=== PATIENT | male | born 1975 | race Caucasian/White ===

== ENCOUNTER 2022-10-21 14:55 | Outpatient (AMB) | payer BC, SELFPAY ==
--- NOTE | 2022-10-21 15:05 | A.OFFPC_ITS ---
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 Had been using cochichine. Fluctuant mass L testicle PMHx: GERD, Gout. Hematuria SurgHx: R knee meniscal repair. Vasectomy with complication; pain & slow recovery FHx: Dad: Gout. Mom: HTN, DM2 SocHx: Smoke x6 years and quit > 10 years ago. Some chewing tobacco. EtOH drinks daily 1/2 pint or more. MJ: Indica tincture. PFSH Medical History (Updated 10/21/22 @ 16:11 by Cb Navarro) GERD (gastroesophageal reflux disease) Gout Kidney disease Shingles Surgical History (Updated 10/21/22 @ 15:54 by Cb Navarro) H/O arthroscopic knee surgery Family History (Updated 10/21/22 @ 15:20 by Belkys Little CMA) Father Gout Maternal Grandfather Alcohol abuse Brother Kidney disease Social History (Updated 10/21/22 @ 15:23 by Belkys Little CMA) Household Members: None Housing: House Alcohol intake: current Patient Tobacco Use Status: Former Tobacco user e-Cigarette/Vaping Use: Never Used Substance Use Type: Marijuana service: No Current occupational status: employed 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 1. Little interest or pleasure in doing things: not at all 2. Feeling down, depressed, or hopeless: not at all 3. Trouble falling or staying asleep, or sleeping too much: not at all 4. Feeling tired or having little energy: not at all 5. Poor appetite or overeating: not at all 6. Feeling bad about yourself - or that you are a failure or have let yourself or your family down: not at all 7. Trouble concentrating on things, such as reading the newspaper or watching television: not at all 8. Moving or speaking so slowly that other people could have noticed. Or the opposite - being so fidgety or restless that you have been moving around a lot more than usual: not at all 9. Thoughts that you would be better off or of hurting yourself in some w ay: not at all Total score: 0 Source: Developed by Drs. Bonifacio Quinn, Kely Saxena, Boston Maier and colleagues, with an educational alyssa from [employer]. Thrive Questionnaire I am a: Patient What is your living situation today?: I have a steady place to live Within the past 12 months, did the food you bought not last and you didn't have the money to get more?: Never true Within the past 12 months, did you worry whether your food would run out before you got money to buy more?: Never true Do you have trouble paying for medicines?: No Do you have trouble getting transportation to medical appointments?: No Do you have trouble paying your heating and electricity bill?: No Do you have trouble taking care of your child, family member or friend?: No Do you have trouble with day-to-day activities such as bathing, preparing meals, shopping, managing finances, etc.?: No Are you currently unemployed and looking for a job?: No Are you interested in more education?: No AUDIT C Alcohol Use Questionnaire (AUDIT-C) 1. How often do you have a drink containing alcohol?: 4 or more times a week 2. How many drinks containing alcohol do you have on a typical day when you are drinking?: 3 or 4 3. How often do you have six or more drinks on one occasion?: Less than monthly Total Score: 6 CHALINO-7 AMB Questionnaire CHALINO-7 Feeling nervous, anxious, or on edge: 0 = Not at all Not being able to stop or control worryin = Not at all Worrying too much about different things: 0 = Not at all Trouble relaxin = Not at all Being so restless that it is hard to sit still: 0 = Not at all Becoming easily annoyed or irritable: 0 = Not at all Feeling afraid as if something awful might happen: 0 = Not at all Total CHALINO-7 score (0-4 normal; 5-9 mild; 10-14 moderate; 15-21 severe): 0 Source: Developed by Drs. Bonifacio Quinn, Kely Saxena, Boston Maier and colleagues, with an educational alyssa from [employer]. Review of Systems Const Denies chills, Denies fatigue, Denies fever(s), Denies headache(s) and Denies weakness ENT Denies dizziness and Denies headache(s) Card Denies chest pain, Denies lightheadedness, Denies dyspnea and Denies other (Palpitations) Resp Denies cough, Denies dyspnea, Denies wheezing and Denies other ( shortness of breath) Musc Denies numbness and Denies tingling Neuro Denies dizziness, Denies headache(s), Denies numbness, Denies tingling, Denies paresthesias and Denies weakness Psych Denies anxiety and Denies depression Endo Denies fatigue Aller/Immun Denies wheezing Physical exam (Primary Care) BMI result Body Mass Index 25.6 Tobacco/Smoking Status: Tobacco use Status Tobacco use date assessed 10/21/22 10/21/22 15:23 Patient Tobacco Use Status Former Tobacco user 10/21/22 15:23 e-Cigarette/Vaping Use Never Used 10/21/22 15:23 Const General: no acute distress and well developed Nutritional Appearance: well nourished Orientation/consciousness: patient oriented x3 HENMT Head: Yes normocephalic and Yes atraumatic Eyes General: appearance normal, both eyes and all related structures Pupils: Equal, round and reactive pupils present EOM: EOMs intact bilaterally Resp Effort & Inspection: normal respiratory effort Auscultation: clear to auscultation bilaterally Cardio Rate: regular rate Rhythm: regular rhythm Heart sounds: S1 normal heart sound present, S2 normal heart sound present, no gallops, no murmurs and no rubs Neuro General: patient oriented x3 and No gait normal (limping due to L knee and ankle swelling ) Cranial nerves: Yes Equal, round and reactive pupils present Extrem Other: L knee and ankle swelling with erythema warmth and tenderness Psych Affect: normal affect Assessment and Plan Assessment & Plan (1) Gout: Code(s): M10.9 - Gout, unspecified Plan: History of gout and current left knee and left ankle flare Checking uric acid, renal function, a sed rate Will give him a course of prednisone Will discuss using a controlling medication like allopurinol at his next visit (2) History of vasectomy: Code(s): Z98.52 - Vasectomy status Plan: Patient notes complications to this and feels that he has an expanding fluctuant mass secondary to this. Possible seroma versus other mass Will check an ultrasound and refer him to Urology (3) Mass of left testicle: Code(s): N50.89 - Other specified disorders of the male genital organs Plan: As above (4) Alcohol use: Code(s): Z78.9 - Other specified health status Plan: Encouraged weaning down with a goal of cessation Will readdress this at subsequent visits (5) Screening for colon cancer: Code(s): Z12.11 - Encounter for screening for malignant neoplasm of colon Plan: Referred to Gastroenterology (6) GERD (gastroesophageal reflux disease): Code(s): K21.9 - Gastro-esophageal reflux disease without esophagitis Plan: Significant longstanding GERD Will refer him to Gastroenterology (7) Laboratory exam ordered as part of routine general medical examination: Code(s): Z00.00 - Encounter for general adult medical examination without abnormal findings Plan: Check labs Orders: Orders Comprehensive [place]. Panel Fast Today Z00.00 - Encounter for general adult medical examination without abnormal findings Lipid Panel Today Z00.00 - Encounter for general adult medical examination without abnormal findings Prostate Specific Antigen Scr Today Z12.5 - Encounter for screening for malignant neoplasm of prostate TSH reflex Free T4 Today Z00.00 - Encounter for general adult medical examination without abnormal findings Microalbumin, Random (w Creat) Today I10 - Essential (primary) hypertension UA and rflx microscopic Today Z00.00 - Encounter for general adult medical examination without abnormal findings Uric Acid Today M10.9 - Gout, unspecified CRP High Sensitivity Today M10.9 - Gout, unspecified Erythrocyte Sedimentation Rate Today M10.9 - Gout, unspecified US scrotum Today N50.89 - Other specified disorders of the male genital organs Referrals Gastroenterology Referral K21.9 - Gastro-esophageal reflux disease without esophagitis, Z12.11 - Encounter for screening for malignant neoplasm of colon Urology Referral N50.89 - Other specified disorders of the male genital organs Medications: New prednisone 40 mg (2 x 20 mg) PO DAILY 4 days 8 tabs 1RF omeprazole 20 mg PO DAILY 30 caps 2RF 30 days Coding Level of Care Code New Pt Level 4 (29888) Diagnoses Gout M10.9 History of vasectomy Z98.52 Mass of left testicle N50.89 Alcohol use Z78.9 Screening for colon cancer Z12.11 GERD (gastroesophageal reflux disease) K21.9 Laboratory exam ordered as part of routine general medical examination Z00.00
[2022-10-21 15:06] VITALS: BP 132/72; PULSE 79; O2SAT 99; BMI 25.6
== END 2022-10-21 16:11 | disposition home or self-care (01) ==
PROVIDERS: Visit Provider Family Medicine
DX: M10.9 Gout, unspecified (principal); Z98.52 Vasectomy status; N50.89 Other specified disorders of the male genital organs; K21.9 Gastro-esophageal reflux disease without esophagitis; Z12.11 Encounter for screening for malignant neoplasm of colon
CPT/HCPCS: 99204

== ENCOUNTER 2022-10-22 07:17 | Outpatient (REF) | payer BC, SELFPAY ==
[2022-10-22 12:08] LABS: Alanine Aminotransferase 18 U/L (0-40); Albumin Level 3.9 g/dL (3.5-5.0); Alkaline Phosphatase 100 U/L (39-117); Aspartate Amino Transferase 22 U/L (5-37); Bilirubin Total 0.9 mg/dL (0.0-1.0); Blood Urea Nitrogen 12 mg/dL (9-16); Calcium 10.1 mg/dL (8.4-10.2); Chloride 100 mmol/L (96-108); Cholesterol 237 mg/dL; Estimated Glomerular Filt Rate > 60; Glucose Fasting 104 mg/dL (60-99); HDL Cholesterol 97 mg/dL; LDL Cholesterol Calculated 124 mg/dl; Potassium 3.4 mmol/L (3.3-5.1); Sodium 138 mmol/L (135-145); Total Protein 7.5 g/dL (6.5-8.0); Triglycerides 82 mg/dL; Uric Acid 7.7 mg/dL (3.4-7.0)
[2022-10-22 12:14] LABS: Appearance Urine Clear; Color Urine Yellow; Glucose Urine UA Negative (Negative); Leukocyte Esterase Urine Negative (Negative); Nitrite Urine Negative (Negative); PH 5.5 (5.0-9.0); UMIC TRIGGER UA YES; Urine Blood Large (3+) (Negative); Urine Ketones Negative (Negative); Urine Protein 100 (2+) mg/dL (Neg-Trace)
[2022-10-22 12:23] LABS: Prostate Specific Antigen Scr 3.36 ng/mL (<0.05-4.0)
[2022-10-22 12:29] LABS: Bacteria Urine None Seen (None Seen); Granular Casts Urine Present; Squamous Epithelial Cell Urine 0-2 /HPF (0-2); WBC Urine 0-5 /HPF (0-5)
[2022-10-22 12:29] LABS: TSH reflex Free T4 0.88 uIU/mL (0.32-4.0)
[2022-10-22 12:31] LABS: Erythrocyte Sedimentation Rate 38 MM/HR (0-15)
[2022-10-22 13:29] LABS: Creatinine Urine 136.52 mg/dL
[2022-10-22 18:26] LABS: Carbon Dioxide 22 mmol/L (22-29)
[2022-10-28 16:29] LABS: CRP High Sensitivity >10.0 mg/L
== END 2022-10-22 07:18 | disposition home or self-care (01) ==
LOC: HO.WFDLDS 07:17
PROVIDERS: Visit Provider Family Medicine
DX: Z00.00 Encounter for general adult medical examination without abnormal findings (principal); M10.9 Gout, unspecified; I10 Essential (primary) hypertension; Z12.5 Encounter for screening for malignant neoplasm of prostate
CPT/HCPCS: 36415; 80053; 80061; 81001; 82043; 84153; 84443; 84550; 85652; 86141

== ENCOUNTER 2022-10-31 11:47 | Outpatient (AMB) | payer BC, SELFPAY ==
--- NOTE | 2022-10-31 11:54 | MHC.PC.OV ---
Vital Signs 10/31/22 11:55 Height 6 ft Weight 191 lb BMI 25.9 BP 124/68 Blood Pressure Location Rt brachial Position Sitting Respiration 15 Pulse 79 Pulse Source Pulse Oximeter Temp 98.7 F Temp Source Temporal Artery Scan Pulse Oximetry (%) 99 Oxygen Delivery Method Room Air Intake Visit Reasons: Gout f/u Intake Note: Patient presents for a follow up for gout and he states he is unsure if the swollen ankle is gout. Patient states he has completed the prednisone course, tried ibuprofen, ice/heat therapy as well as elevation and none of which seemed to help. Patient reports pain becomes severe at times where he cannot put pressure on his foot at all. 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 Labs had been ordered and gave him a script for prednisone. Labs were drawn 10/22/22. Reviewed labs with pt. Elevated uric acid level at 7.7. CRP elevated. ESR elevated. Elevated fasting glucose of 104. Severe proteinuria. He reports a gout flare-up x15 days and reports LE swelling and pain. He states he has been wrapping it tightly and has been trying to relax/ice it when he can. [facility] Medical History (Updated 10/31/22 @ 11:56 by Cb Navarro) GERD (gastroesophageal reflux disease) Gout Kidney disease Shingles Surgical History (Updated 10/21/22 @ 15:54 by Cb Navarro) H/O arthroscopic knee surgery Family History (Updated 10/21/22 @ 15:20 by Belkys Little CMA) Father Gout Maternal Grandfather Alcohol abuse Brother Kidney disease Social History (Updated 10/21/22 @ 15:23 by Belkys Little CMA) Household Members: None Housing: House Alcohol intake: current Patient Tobacco Use Status: Former Tobacco user e-Cigarette/Vaping Use: Never Used Substance Use Type: Marijuana service: No Current occupational status: employed 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 Cognitive needs: No Hearing needs: No Vision needs: No Physical exam (Primary Care) Vital Signs: Last Vital Signs Temp 98.7 F 10/31/22 11:55 Pulse 79 10/31/22 11:55 Resp 15 10/31/22 11:55 BP 124/68 10/31/22 11:55 Pulse Ox 99 10/31/22 11:55 Oxygen Delivery Method Room Air 10/31/22 11:55 BMI result Body Mass Index 25.9 Tobacco/Smoking Status: Tobacco use Status Tobacco use date assessed 10/21/22 10/31/22 11:55 Patient Tobacco Use Status Former Tobacco user 10/31/22 11:55 e-Cigarette/Vaping Use Never Used 10/31/22 11:55 Assessment and Plan Assessment & Plan (1) Gout: Code(s): M10.9 - Gout, unspecified Plan: Uric acid level is high as well as ESR and CRP Patient has an active gout flare currently. Creatinine and GFR are within normal limits Start indomethacin Will start allopurinol once inflammation is subsiding Follow-up at next visit. He will get his labs drawn prior to that appointment (2) Proteinuria: Code(s): R80.9 - Proteinuria, unspecified Plan: As above, his creatinine and GFR are within normal limits Significant proteinuria which is likely secondary to elevated uric acid levels and gout Will treat the likely underlying problem. If proteinuria persists, will refer to nephrology Medications: New omeprazole 40 mg PO DAILY 90 days 90 caps 3RF Discontinued pantoprazole Discontinued Reason: Doctor's Order 20 mg PO DAILY 90 days 90 tabs 2RF prednisone Discontinued Reason: Patient Completed Course 40 mg (2 x 20 mg) PO DAILY 4 days 8 tabs 1RF Coding Level of Care Code Est Pt Level 3 (96270) Diagnoses Gout M10.9 Proteinuria R80.9
[2022-10-31 11:55] VITALS: BP 124/68; PULSE 79; RESP 15; TEMP 37.1; O2SAT 99; BMI 25.9
== END 2022-10-31 12:19 | disposition home or self-care (01) ==
PROVIDERS: PCP Family Medicine; Visit Provider Family Medicine
DX: M10.9 Gout, unspecified (principal); R80.9 Proteinuria, unspecified
CPT/HCPCS: 99213

== ENCOUNTER 2022-11-05 15:09 | Outpatient (REF) | payer BC, SELFPAY ==
--- NOTE | ~2022-11-05 | US_ITS ---
EXAMINATION: US SCROTUM CLINICAL INFORMATION: Mass of left testicle. Status post vasectomy 20+ years ago. Patient noticed lump after vasectomy, now larger and more uncomfortable. COMPARISON: None available. TECHNIQUE: A sonogram of the scrotum was performed assessing kidd-scale appearance and color Doppler flow. Spectral Doppler analysis of the arterial and venous flow were performed in the testes bilaterally. FINDINGS: RIGHT: Right testicle measures 4.6 x 2.8 x 2.9 cm, volume 20 mL. No focal testicular parenchymal lesions are visualized. Spectral Doppler analysis of the arterial and venous flow is normal in the right testis. Right epididymal head is normal in size. 0.3 cm right epididymal cyst versus spermatocele. No right hydrocele or varicocele is seen. Right epididymal Doppler flow is normal. LEFT: Left testicle measures 4.4 x 2.3 x 2.6 cm, volume 14 mL. No focal testicular parenchymal lesions are visualized. Spectral Doppler analysis of the arterial and venous flow is normal in the left testis. 5.3 x 4.2 x 2.6 cm, smooth, ovoid, hypoechoic structure containing homogeneous, low-level internal echoes. It is difficult to distinguish the epididymal head from this structure. The visualized left epididymal Doppler flow is normal. US/US scrotum IMPRESSION: 5.3 x 4.2 x 2.6 cm, smooth, ovoid, hypoechoic structure containing homogeneous, low-level internal echoes. It is difficult to distinguish the epididymal head from this structure. Differential diagnosis includes, but is not limited to, epididymal cyst versus spermatocele, and, less likely, loculated hydrocele, etc. 0.3 cm right epididymal cyst versus spermatocele.
== END 2022-11-05 15:10 | disposition home or self-care (01) ==
LOC: HO.US 15:09
PROVIDERS: PCP Family Medicine; Visit Provider Family Medicine
DX: N50.89 Other specified disorders of the male genital organs (principal)
CPT/HCPCS: 76870

== ENCOUNTER 2022-11-21 11:08 | Outpatient (AMB) | payer BC, SELFPAY ==
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
== END 2022-11-21 12:03 | disposition home or self-care (01) ==
PROVIDERS: PCP Family Medicine; Visit Provider Nurse Practitioner Family
DX: N43.40 Spermatocele of epididymis, unspecified (principal)
CPT/HCPCS: 99204

== ENCOUNTER → 2022-11-21 11:08 | Outpatient (BNVA) | payer BC, SELFPAY | PROVIDERS: PCP Family Medicine; Visit Provider Nurse Practitioner Family | DX: N43.40 Spermatocele of epididymis, unspecified (principal) | CPT/HCPCS: 81003 ==

== ENCOUNTER 2022-12-16 10:59 | Outpatient (AMB) | payer BC, SELFPAY ==
--- NOTE | 2022-12-16 10:58 | MHC.OFFVIS ---
Intake Vital Signs 12/16/22 10:59 Height 6 ft Weight 179 lb BMI 24.3 BP 140/82 H Blood Pressure Location Lt brachial Intake Visit Reasons: GERD and colonoscopy screening Intake Note: Patient here for new patient appointment, GERD and Colonoscopy Screening. Patient reports he takes Omeprazole since his mid 20's and has been well controlled. Patient states when he has tried to wean off it, the side effects are unbearable. CC: no concerns. Allergies No Known Allergies Allergy (Verified 12/16/22 11:07) Medication List - Last Reconciled 12/16/22 by Mery Still PA-C allopurinol 100 mg PO DAILY 30 days omeprazole 40 mg PO DAILY 90 days HPI HPI Comments History of Present Illness Details A 47-year-old male referred for index screening colonoscopy presents with persistent Gerd-taking PPI for the last 20 years he is tried weaning off for symptoms exacerbate. He is having a flare with st, 3-gout- past 6 weeks extremely difficult-he is following with his PCP to discuss further options Appetite is fair-but due to gout- afraid to eat-knows he eats some things he is aware are culprits- Has a mass on testicle expecting to have surgery and in the next month or so No nausea, vomiting hematemesis, hematochezia fever or chills PFSH Medical History Kidney disease Shingles GERD (gastroesophageal reflux disease) Gout Surgical History H/O arthroscopic knee surgery Family History Father Gout Maternal Grandfather Alcohol abuse Brother Kidney disease Social History (Updated 12/16/22 @ 11:21 by Mery Still PA-C) Household Members: None Housing: House Alcohol intake: current Patient Tobacco Use Status: Former Tobacco user e-Cigarette/Vaping Use: Never Used Substance Use Type: Marijuana service: No Current occupational status: employed 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 Cognitive needs: No Hearing needs: No Vision needs: No Review of Systems Const All systems reviewed & are unremarkable except as noted in HPI and below Card Denies chest pain and Denies dyspnea Resp Denies dyspnea GI Denies abdominal pain, Denies change in bowel habits, Denies nausea and Denies vomiting Musc Reports abnormal gait, Reports arthralgias and Reports joint swelling Neuro Reports abnormal gait Physical Exam Vital Signs: Last Vital Signs BP 140/82 H 12/16/22 10:59 BMI result Body Mass Index 24.3 Const General: cooperative and healthy appearing Orientation/consciousness: patient oriented x3 Limitations: crutches Eyes Sclerae: sclerae normal Resp Effort & Inspection: normal respiratory effort and able to speak in complete sentences Auscultation: clear to auscultation bilaterally, no rales, no rhonchi and no wheezes Cardio Rate: regular rate Rhythm: regular rhythm Heart sounds: S1 normal heart sound present and S2 normal heart sound present GI Palpation (GI): Soft to palpation and nontender Auscultation: normal bowel sounds Skin General skin exam: no rashes or lesions noted Neuro General: patient oriented x3 Extrem Other: Using crutches, neoprene knee supports bilateral Psych Appearance: grossly normal and well kempt Mental Status: mental status grossly normal Speech and movement: Normal speech and movement present and Clear speech present Affect: Animated affect present and Anxious affect present Attitude: cooperative Thought process: Normal thought process present Thought content: Normal thought content present Insight: Good insight present (Psych) Judgement: Good judgement present (Psych) Assessment & Plan Assessment & Plan (1) GERD (gastroesophageal reflux disease): Code(s): K21.9 - Gastro-esophageal reflux disease without esophagitis Plan: Reflux precaution Continue PPI EGD Muller's surveillance, rule out PUD, esophagitis, nonulcer dyspepsia, other endoscopic findings to account for symptoms (2) Encounter for screening colonoscopy: Code(s): Z12.11 - Encounter for screening for malignant neoplasm of colon Plan: Index screening colonoscopy Plan EGD and colonoscopy-MiraLax Gatorade split Orders: Orders EGD/[place] Combo - GI Use Only 12/16/22 K21.9 - Gastro-esophageal reflux disease without esophagitis, Z12.11 - Encounter for screening for malignant neoplasm of colon Medications: New polyethylene glycol 3350 (Miralax) Take as directed by mouth the day before your procedure. 238 grams PO ONCE 1 day PRN 238 grams 0RF laxative effect bisacodyl (Dulcolax (bisacodyl)) Take 4 tablets by mouth at 12:00pm the day before your procedure. 20 mg (4 x 5 mg) PO ONCE 1 day 4 tabs 0RF colonoscopy prep Z12.11 - Encounter for screening for malignant neoplasm of colon Patient Instructions: Pleasant somewhat anxious 47-year-old male history of gout referred for index screening colonoscopy presents with persistent acid reflux. He will follow back with PCP for Gram Continue ppi Reflux precautions, avoid culprits EGD and colonoscopy- discussed procedures, rare risk, need for escort MG split prep lit given Coding Level of Care Code New Pt Level 3 (27963) Diagnoses GERD (gastroesophageal reflux disease) K21.9 Encounter for screening colonoscopy Z12.11 Time Spent (min) 35
[2022-12-16 10:59] VITALS: BP 140/82; BMI 24.3
== END 2022-12-16 11:37 | disposition home or self-care (01) ==
PROVIDERS: PCP Family Medicine; Visit Provider Physician Assistant
DX: K21.9 Gastro-esophageal reflux disease without esophagitis (principal); Z12.11 Encounter for screening for malignant neoplasm of colon
CPT/HCPCS: 99203

== ENCOUNTER → 2022-12-16 10:59 | Outpatient (BNVA) | payer BC, SELFPAY | PROVIDERS: PCP Family Medicine; Visit Provider Physician Assistant ==

== ENCOUNTER 2023-01-02 07:04 | Outpatient (REF) | payer BC, SELFPAY ==
[2023-01-02 11:16] LABS: MANUAL DIFF FLAG NO
[2023-01-02 11:30] LABS: Basophils Absolute Auto 0.1 X10*3/uL (0.0-0.2); Basophils Percent Auto 1.3 % (0-2); Eosinophils Absolute Auto 0.1 X10*3/uL (0.0-0.4); Hematocrit 43.1 % (42.0-52.0); Hemoglobin 13.9 g/dl (14.0-18.0); Imm Gran Abs Auto 0.02 X10*3/uL (0.00-0.03); Imm Gran Pct Auto 0.4 % (0.0-0.4); Lymphocytes Absolute Auto 1.6 X10*3/uL (1.2-4.9); Lymphocytes Percent Auto 30.1 % (20-40); Mean Corpuscular HGB Conc 32.3 g/dl (31.0-36.0); Mean Corpuscular Hemoglobin 27.7 pg (27.0-33.0); Mean Platelet Volume 10.7 fL (9.4-12.4); Monocytes Absolute Auto 0.5 X10*3/uL (0.1-1.2); Monocytes Percent Auto 9.4 % (2-11); Neutrophils Absolute Auto 3.1 x10*3/uL (2.0-8.3); Neutrophils Percent Auto 56.8 % (45-73); Platelet Count 367 X10*3/uL (160-400); Red Blood Count 5.01 X10*6/uL (4.60-5.80); Red Cell Distribution Width 13.1 % (11.0-16.0); White Blood Count 5.4 X10*3/uL (4.8-10.8)
[2023-01-02 11:43] LABS: Appearance Urine Clear; Color Urine Yellow; Glucose Urine UA Negative (Negative); Leukocyte Esterase Urine Negative (Negative); Nitrite Urine Negative (Negative); UMIC TRIGGER UA YES; Urine Blood Large (3+) (Negative); Urine Ketones Negative (Negative); Urine Protein Negative (Neg-Trace)
[2023-01-02 11:44] LABS: Alanine Aminotransferase 22 U/L (0-40); Albumin Level 3.7 g/dL (3.5-5.0); Alkaline Phosphatase 94 U/L (39-117); Anion Gap 16 (12-20); Aspartate Amino Transferase 17 U/L (5-37); Bilirubin Total 0.4 mg/dL (0.0-1.0); Blood Urea Nitrogen 15 mg/dL (9-16); Calcium 9.6 mg/dL (8.4-10.2); Carbon Dioxide 23 mmol/L (22-29); Chloride 105 mmol/L (96-108); Estimated Glomerular Filt Rate > 60; Glucose Random 102 mg/dL (60-115); Potassium 3.9 mmol/L (3.3-5.1); Sodium 140 mmol/L (135-145); Total Protein 6.9 g/dL (6.5-8.0); Uric Acid 7.8 mg/dL (3.4-7.0)
[2023-01-02 11:50] LABS: Bacteria Urine None Seen (None Seen); Hyaline Casts Urine 0-2 /LPF (0-2); RBC Urine >20 /HPF (0-2); Squamous Epithelial Cell Urine 0-2 /HPF (0-2); WBC Urine 0-5 /HPF (0-5)
[2023-01-02 12:06] LABS: Creatinine Urine 82.09 mg/dL; Microalbum/Creatinine Ratio Ur 38.9 ug/mg cr (<30)
== END 2023-01-02 07:05 | disposition home or self-care (01) ==
LOC: HO.WFDLDS 07:04
PROVIDERS: Visit Provider Family Medicine
DX: Z00.00 Encounter for general adult medical examination without abnormal findings (principal); M10.9 Gout, unspecified; I10 Essential (primary) hypertension; R80.9 Proteinuria, unspecified
CPT/HCPCS: 36415; 80053; 81001; 82043; 82570; 84550; 85025

== ENCOUNTER 2023-01-07 14:03 | Outpatient (AMB) | payer BC, SELFPAY ==
--- NOTE | 2023-01-07 14:12 | MHC.PC.OV ---
Vital Signs 01/07/23 14:13 Height 6 ft Weight 195 lb BMI 26.4 BP 124/68 Blood Pressure Location Rt brachial Position Sitting Pulse 77 Pulse Source Pulse Oximeter Pulse Oximetry (%) 98 Oxygen Delivery Method Room Air Intake Visit Reasons: CPE with follow up labs and health maintenance Intake Note: Patient is here for his physical today and to follow up on blood work and his gout. Allergies No Known Allergies Allergy (Verified 01/07/23 14:14) Tobacco use date assessed: 01/07/23 HPI CPE with follow up labs and health maintenance HPI Details 48 y/o male presents for a CPE with f/u labs and health maintenance. Labs were drawn 01/02/23. Reviewed labs with pt. Elevated Microalb/Creat Ratio at 38.9. Elevated uric acid level at 7.8. He is on allopurinol 100mg daily. He notes the past 2 months since he started allopurinol it had been causing gout flare-ups. Pt reports polyarthralgia and has not been active much due to this. 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 Cognitive needs: No Hearing needs: No Vision needs: No Review of Systems Const Denies chills, Denies fatigue, Denies fever(s), Denies headache(s) and Denies weakness Eyes Denies change in vision ENT Denies dizziness, Denies headache(s), Denies hearing loss, Denies nasal congestion, Denies sinus pain, Denies sinus pressure and Denies sore throat Card Denies chest pain, Denies lightheadedness, Denies dyspnea and Denies other (palpitations) Resp Denies cough, Denies dyspnea and Denies wheezing GI Denies abdominal pain, Denies melena, Denies hematochezia, Denies change in bowel habits, Denies dyspepsia and Denies nausea Denies hematuria and Denies dysuria Musc Denies abnormal gait, Denies myalgias, Denies arthralgias, Denies numbness and Denies tingling Skin/Breast Denies rash, Denies unusual bruising and Denies wounds Neuro Denies abnormal gait, Denies dizziness, Denies headache(s), Denies memory loss, Denies numbness, Denies Sensory deficit (Neuro), Denies tingling and Denies weakness Psych Denies anxiety, Denies depression and Denies memory loss Endo Denies cold intolerance, Denies fatigue, Denies heat intolerance, Denies polydipsia and Denies polyuria Danny/Lymph Denies easy bleeding and Denies easy bruising Aller/Immun Denies wheezing Physical exam (Primary Care) Vital Signs: Last Vital Signs Pulse 77 01/07/23 14:13 BP 124/68 01/07/23 14:13 Pulse Ox 98 01/07/23 14:13 Oxygen Delivery Method Room Air 01/07/23 14:13 BMI result Body Mass Index 26.4 Tobacco/Smoking Status: Tobacco use Status Tobacco use date assessed 01/07/23 01/07/23 14:16 Patient Tobacco Use Status Former Tobacco user 01/07/23 14:16 e-Cigarette/Vaping Use Never Used 01/07/23 14:16 Const General: no acute distress, well developed, alert and awake Nutritional Appearance: well nourished Orientation/consciousness: patient oriented x3 HENMT Head: Yes normocephalic and Yes atraumatic Ears: hearing grossly normal bilaterally and TM's normal bilaterally General nose exam: Normal external nose present and Normal nares present Mouth: Normal oral and palatal mucosa present and moist mucous membranes Teeth and gingiva: dentition normal Throat: Yes posterior oropharynx normal Eyes General: appearance normal, both eyes and all related structures Pupils: Equal, round and reactive pupils present and Pupil accommodation reflex normal EOM: EOMs intact bilaterally Neck Neck: Yes normal visual inspection, Yes no lymphadenopathy and Yes trachea midline Thyroid: Thyroid normal Carotids: no bruits Lymphatic: no lymphadenopathy noted Chest Chest palpation & inspection: normal inspection of the chest Resp Effort & Inspection: normal respiratory effort Auscultation: clear to auscultation bilaterally Cardio Rate: regular rate Rhythm: regular rhythm Heart sounds: S1 normal heart sound present, S2 normal heart sound present, no gallops, no murmurs and no rubs Bruits: no abdominal aortic bruits and no carotid bruits GI Palpation (GI): No Abdominal aortic bruit present, Soft to palpation, nontender, No hepatosplenomegaly present and No Rebound tenderness present Auscultation: normal bowel sounds General: Yes no CVA tenderness Back/Spine/Pelvis Back: no CVA tenderness Cervical Spine: cervical ROM normal and No Cervical spine tenderness Thoracic/Lumbar Spine: thoraco-lumbar ROM normal, No pain with thoraco-lumbar ROM, No thoracic spinal tenderness and No lumbar spinal tenderness Skin Lesions: no lesions Rashes: no rashes Trauma: no lacerations or abrasions Wounds: no wounds Nails: normal Neuro General: patient oriented x3 Cranial nerves: Yes Equal, round and reactive pupils present Cognition (Neuro): normal cognition Gait exam (Neuro): Normal gait present Motor exam (neuro): 5/5 motor strength present throughout Sensory Exam: No Sensory deficit (Neuro) Deep tendon reflexes (DTR's): Right patellar reflex intensity grade: 2+ and Left patellar reflex intensity grade: 2+ Extrem General: Yes normal to inspection and No edema Psych Appearance: grossly normal Affect: normal affect Attitude: cooperative Thought process: Normal thought process present Assessment and Plan Assessment & Plan (1) Adult general medical exam: Code(s): Z00.00 - Encounter for general adult medical examination without abnormal findings Plan: 48-year-old?male?presents?for?complete?physical?exam Encouraged?healthy?diet?with?active?lifestyle?and?plenty?of?exercise (2) Spermatocele: Code(s): N43.40 - Spermatocele of epididymis, unspecified Plan: [place] [place] (3) Screening for colon cancer: Code(s): Z12.11 - Encounter for screening for malignant neoplasm of colon Plan: Is?followed?by?[facility]?gastroenterology. Follow-up?as?recommended (4) Polyarthralgia: Code(s): M25.50 - Pain in unspecified joint Plan: Polyarthralgia?and?elevated?uric?acid?levels?with?a?history?of?gout. Uric?acid?levels?still?high?and?likely?still?has?a?polyarthropathy?from?gout?in?multiple?joints. Will?give?him?another?round?of?medication?and?increase?his?allopurinol. Referred?to?Rheumatology (5) Elevated fasting glucose: Code(s): R73.01 - Impaired fasting glucose Plan: Elevated?fasting?blood?sugar?and?he?does?have?a?first-degree?relative?(mom)?with?diabetes?though?he?is?not?sure?what?type. Recheck?fasting?blood?sugars?and?A1c (6) Proteinuria: Code(s): R80.9 - Proteinuria, unspecified Plan: Check?labs (7) Screening for prostate cancer: Code(s): Z12.5 - Encounter for screening for malignant neoplasm of prostate Plan: PSA?less?than?4. Followed?by?urology (8) Elevated blood uric acid level: Code(s): E79.0 - Hyperuricemia without signs of inflammatory arthritis and tophaceous disease Plan: As?above (9) History of gout: Code(s): Z87.39 - Personal history of other diseases of the musculoskeletal system and connective tissue Plan: As?above (10) Elevated uric acid in blood: Code(s): E79.0 - Hyperuricemia without signs of inflammatory arthritis and tophaceous disease Orders: Orders Microalbumin, Random (w Creat) Today I10 - Essential (primary) hypertension Complete Blood Count Auto Diff Today Z00.00 - Encounter for general adult medical examination without abnormal findings Comprehensive [place]. Panel Fast Today Z00.00 - Encounter for general adult medical examination without abnormal findings Hemoglobin A1c Today R73.01 - Impaired fasting glucose UA and rflx microscopic Today Z00.00 - Encounter for general adult medical examination without abnormal findings Referrals Rheumatology Referral E79.0 - Hyperuricemia without signs of inflammatory arthritis and tophaceous disease, M10.9 - Gout, unspecified Medications: New colchicine (gout) 0.3 mg (1/2 x 0.6 mg) PO DAILY 5 days 3 tabs 2RF Changed From allopurinol 100 mg PO DAILY 30 days 30 tabs 2RF M10.9 - Gout, unspecified To allopurinol 200 mg (2 x 100 mg) PO DAILY 30 days 60 tabs 2RF M10.9 - Gout, unspecified Coding Level of Care Code Est Pt Level 3 (67085) Est Pt Prev Care 40-64y(92725) Diagnoses Adult general medical exam Z00.00 Spermatocele N43.40 Screening for colon cancer Z12.11 Polyarthralgia M25.50 Elevated fasting glucose R73.01 Proteinuria R80.9 Screening for prostate cancer Z12.5 Elevated blood uric acid level E79.0 History of gout Z87.39 Elevated uric acid in blood E79.0
[2023-01-07 14:13] VITALS: BP 124/68; PULSE 77; O2SAT 98; BMI 26.4
== END 2023-01-07 15:30 | disposition home or self-care (01) ==
PROVIDERS: PCP Family Medicine; Visit Provider Family Medicine
DX: Z00.00 Encounter for general adult medical examination without abnormal findings (principal); N43.40 Spermatocele of epididymis, unspecified; Z12.11 Encounter for screening for malignant neoplasm of colon; M25.50 Pain in unspecified joint; R73.01 Impaired fasting glucose; R80.9 Proteinuria, unspecified; Z12.5 Encounter for screening for malignant neoplasm of prostate; E79.0 Hyperuricemia without signs of inflammatory arthritis and tophaceous disease; Z87.39 Personal history of other diseases of the musculoskeletal system and connective tissue
CPT/HCPCS: 99396

== ENCOUNTER 2023-02-02 10:09 | Day surgery (SDC) | payer BC, SELFPAY ==
[2023-02-02] VITALS (9 sets, daily range): BP systolic 131–147; BP diastolic 79–89; PULSE 70–114; RESP 16–18; TEMP 36.4–36.8; O2SAT 97–100; BMI 26.4
--- NOTE | 2023-02-02 14:04 | HO.ANESPROP2 ---
[facility] Active Problems Active Problems: All Active Problems (Updated 01/07/23 @ 15:11 by Cb Navarro) Polyarthralgia (Acute) Elevated blood uric acid level (Acute) History of gout (Acute) Screening for prostate cancer (Acute) Screening for colon cancer (Acute) Adult general medical exam (Acute) Encounter for screening colonoscopy (Acute) Spermatocele (Acute) Elevated fasting glucose (Acute) Proteinuria (Acute) Pain and swelling of lower extremity (Acute) Alcohol use (Acute) Mass of left testicle (Acute) History of vasectomy (Acute) GERD (gastroesophageal reflux disease) (Acute) Gout (Acute) Laboratory exam ordered as part of routine general medical examination (Acute) ETOH abuse Past Medical History Medical History Kidney disease Shingles GERD (gastroesophageal reflux disease) Gout Family History Family History Father Gout Maternal Grandfather Alcohol abuse Brother Kidney disease Surgical History Surgical History H/O arthroscopic knee surgery History of Problems with Anesthesia: No Social History Social History (Updated 12/16/22 @ 11:21 by Mery Still PA-C) Household Members: None Housing: House Alcohol intake: current Patient Tobacco Use Status: Former Tobacco user e-Cigarette/Vaping Use: Never Used Substance Use Type: Marijuana Substance Use Frequency: Occasionally Are you DNR?: No Advance Directives: No Advance Directives Information Provided: Yes Nutrition Risks: No Nutritional Risk service: No Current occupational status: employed 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 Cognitive needs: No Hearing needs: No Vision needs: No Meds Allergies Allergy/AdvReac Type Severity Reaction Status Date / Time No Known Allergies Allergy Verified 02/02/23 11:28 Exam Exam Date and Time: February 02, 2023 1404 Height,Weight and Vital Signs: Height 6 ft Weight 88.451 kg Last Vital Signs Temp 97.9 F 02/02/23 13:13 Pulse 99 02/02/23 13:13 Resp 18 02/02/23 13:13 BP 141/89 H 02/02/23 13:13 Pulse Ox 100 02/02/23 13:13 O2 Del Method Room Air 02/02/23 13:13 Airway Mallampati Class: II TM Dist: >3cm Neck ROM: Full Loose/Missing/Broken Teeth: No Heart: RRR Lungs: CTA Assessment and Plan Assessment Anesthesia Assessment: Anesthesia Plan Discussed and Chart Reviewed Final Anesthetic Review History of Problems with Anesthesia: No NPO: Yes ASA Class: III Final Preanesthetic Review: Meds/Allgs Chart Reviewed, Consent Obtained/Reviewed and Anes Risks/Benef Reviewed Patient Risk: Intermediate Procedure Risk: Low Anesthetic Plan Anesthetic Plan: GA Disposition: Standard PACU
--- NOTE | 2023-02-02 14:34 | MHC.SHP ---
Pre-Procedural Eval Section A Date of Service: 02/02/23 The patient is an INPATIENT: No Changes since office visit: No Cold of Flu in the past 2 weeks, No New Medical Problems, No Changes in Medication and No Patient answered all questions The History & Physical has been completed within 30 days and I have reviewed it.: No Section B Chief Complaint: Spermatocele of epididymis, unspecified Relevant Social History: None Present Medications: see Short Stay Collaborative assessment Medical History: No relevant PMH History of Previous Operations: Relevant previous surgery/procedure and date(s) Allergies: Allergies Allergy/AdvReac Type Severity Reaction Status Date / Time No Known Allergies Allergy Verified 02/02/23 11:28 Review of Systems Sugical H&P ROS: Negative: Constitution, Cardiovascular, Respiratory, Neurological, Psychiatric, Hem-Onc, Allergic/Immunologic, Gastrointestinal, Genitourinary, Musculoskeletal, Integumentary, Endocrine and Eyes/Ears/Nose/Throat Exam Surgical H&P Exam: Normal: HEENT, Normal: Heart, Normal: Lungs, Normal: Extremities, Normal: Abdomen, Normal: Skin and Normal: Neurological Plan Diagnosis/Plan: Unchanged (left spermatocelectomy) I have reviewed the history and physical and performed a pertinent physical examination on my patient. No changes have occurred unless specified. Time Spent With Patient Time: Total time managing care of this patient today ____ minutes.
--- NOTE | 2023-02-02 15:32 | W.PM.OPN ---
Operative Note Operative Note Date of Service: 02/02/23 Narrative: PreOperative Diagnosis: left Spermatocele Post Operative Diagnosis: left Spermatocele Procedure: Spermatocelectomy Surgeon: Dr Chaitanya Verdugo Anesthesia: General Indications for procedure: left Spermatocele with persistent discomfort Procedure: After informed consent was verified the patient was brought to the operating room and placed in a supine position. Anesthesia was administered per protocol. Patient was appropriately shaved and genitals were prepped and draped in sterile fashion. Safety pause time-out was performed. Antibiotics being given. Local anesthetic was infiltrated under the skin in a horizontal fashion on the scrotum. Skin incision was made using a blade through the subdermal layer. The tunica around the testicle was elevated and dissected free from surrounding tissue. A small incision was made through the tunic. Edges were held using Allis clamps. Fluid was removed. The testicle was delivered from the tunic. The spermatocele was seen within the epididymis of the testicle. Using Bovie cautery and sharp dissectionspermatocele was carefully dissected free from attachments to the upper pole of the testicle and the epididymis. it was closely involved with the head of the epididymis.Once free the stalk of the spermatocele was identified and cauterized. Fluid was removed from the spermatocele and the empty spermatocele sac was removed. Small accessory appendices were removed from the head of epididymis. The testicle was placed back within tunica inside the scrotum. The tunica was closed using a running 3-0 Vicryl suture. Overlying tissue was reapproximated using a running 3-0 Vicryl suture. Skin was closed with interrupted 4-0 chromic sutures. Soft fluff sponges were placed with mesh pants as dressing. Local anesthetic was placed in inguinal cord for post procedure pain relief. Patient tolerated procedure well was extubated in operating room transferred in stable condition to the recovery area Pathology: Spermatocele sac Drains:
[2023-02-02] MEDS: fentaNYL citrate/PF 100 MCG/2 ML VIAL 50 MCG IVPUSH (16:00)
[2023-02-02] MEDS: oxyCODONE HCl Immed Release 5 MG TABLET PO (16:00)
== END 2023-02-02 16:50 | disposition home or self-care (01) ==
PROVIDERS: PCP Family Medicine; Visit Provider Urology
PROC: (CPT 54840; principal; 2023-02-02 12:30)
DX: N43.40 Spermatocele of epididymis, unspecified (principal); Z98.52 Vasectomy status; K21.9 Gastro-esophageal reflux disease without esophagitis; N18.9 Chronic kidney disease, unspecified; Z87.891 Personal history of nicotine dependence; F12.90 Cannabis use, unspecified, uncomplicated
CPT/HCPCS: 54840; 88304; J0690; J1100; J1885; J2250; J2405; J2795; J3010

== ENCOUNTER → 2023-02-02 10:09 | Outpatient (BNV) | payer BC, SELFPAY | PROVIDERS: PCP Family Medicine; Visit Provider Urology | DX: N43.41 Spermatocele of epididymis, single (principal) | CPT/HCPCS: 54840 ==

== ENCOUNTER 2023-02-10 07:06 | Outpatient (REF) | payer BC, SELFPAY ==
[2023-02-10 11:17] LABS: MANUAL DIFF FLAG NO
[2023-02-10 11:27] LABS: Appearance Urine Clear; Color Urine Yellow; Glucose Urine UA Negative (Negative); Leukocyte Esterase Urine Negative (Negative); Nitrite Urine Negative (Negative); Specific Gravity - Urine 1.015 (1.005-1.025); UMIC TRIGGER UA YES; Urine Blood Large (3+) (Negative); Urine Ketones Negative (Negative); Urine Protein Trace mg/dL (Neg-Trace)
[2023-02-10 11:32] LABS: Basophils Absolute Auto 0.1 X10*3/uL (0.0-0.2); Basophils Percent Auto 1.7 % (0-2); Eosinophils Absolute Auto 0.1 X10*3/uL (0.0-0.4); Hematocrit 43.7 % (42.0-52.0); Hemoglobin 14.3 g/dl (14.0-18.0); Imm Gran Abs Auto 0.01 X10*3/uL (0.00-0.03); Imm Gran Pct Auto 0.3 % (0.0-0.4); Lymphocytes Absolute Auto 1.1 X10*3/uL (1.2-4.9); Mean Corpuscular HGB Conc 32.7 g/dl (31.0-36.0); Mean Corpuscular Hemoglobin 27.7 pg (27.0-33.0); Mean Corpuscular Volume 84.5 fL (80.0-98.0); Mean Platelet Volume 12.1 fL (9.4-12.4); Monocytes Absolute Auto 0.5 X10*3/uL (0.1-1.2); Monocytes Percent Auto 12.7 % (2-11); Neutrophils Absolute Auto 1.8 x10*3/uL (2.0-8.3); Neutrophils Percent Auto 51.3 % (45-73); Platelet Count 258 X10*3/uL (160-400); Red Blood Count 5.17 X10*6/uL (4.60-5.80); Red Cell Distribution Width 15.1 % (11.0-16.0); White Blood Count 3.5 X10*3/uL (4.8-10.8)
[2023-02-10 11:34] LABS: Bacteria Urine None Seen (None Seen); Hyaline Casts Urine 0-2 /LPF (0-2); RBC Urine >20 /HPF (0-2); Squamous Epithelial Cell Urine 0-2 /HPF (0-2); WBC Urine 0-5 /HPF (0-5)
[2023-02-10 11:36] LABS: Estimated Average Glucose 91 mg/dL; Hemoglobin A1c % 4.8 % (<6.0)
[2023-02-10 11:51] LABS: Alanine Aminotransferase 27 U/L (0-40); Albumin Level 3.9 g/dL (3.5-5.0); Alkaline Phosphatase 78 U/L (39-117); Anion Gap 14 (12-20); Aspartate Amino Transferase 30 U/L (5-37); Bilirubin Total 0.3 mg/dL (0.0-1.0); Blood Urea Nitrogen 13 mg/dL (9-16); Calcium 9.5 mg/dL (8.4-10.2); Carbon Dioxide 26 mmol/L (22-29); Chloride 105 mmol/L (96-108); Estimated Glomerular Filt Rate > 60; Glucose Fasting 88 mg/dL (60-99); Potassium 3.9 mmol/L (3.3-5.1); Sodium 141 mmol/L (135-145)
[2023-02-10 12:17] LABS: Creatinine Urine 101.38 mg/dL; Microalbum/Creatinine Ratio Ur 99.6 ug/mg cr (<30)
== END 2023-02-10 07:07 | disposition home or self-care (01) ==
LOC: HO.WFDLDS 07:06
PROVIDERS: Visit Provider Family Medicine
DX: Z00.00 Encounter for general adult medical examination without abnormal findings (principal); I10 Essential (primary) hypertension; R73.01 Impaired fasting glucose
CPT/HCPCS: 36415; 80053; 81001; 82043; 82570; 83036; 85025

== ENCOUNTER 2023-02-12 11:34 | Outpatient (AMB) | payer BC, SELFPAY ==
--- NOTE | 2023-02-12 11:42 | A.OFFPC_ITS ---
Vital Signs 02/12/23 11:43 Height 6 ft Weight 196 lb 4 oz BMI 26.6 BP 130/80 Blood Pressure Location Rt brachial Position Sitting Pulse 82 Pulse Source Pulse Oximeter Pulse Oximetry (%) 98 Oxygen Delivery Method Room Air Intake Visit Reasons: f/u gout Intake Note: Patient is here to follow up on gout, and had cyst removed from scrotum, and was wondering if sutures needs to come out. Patient states that he had another gout attack after last seen here after finished the colchicine. Allergies No Known Allergies Allergy (Verified 02/12/23 11:46) Tobacco use date assessed: 02/12/23 HPI f/u gout HPI Details 48 y/o male presents to f/u elevated uri c acid levels with pain in multiple joints, elevated fasting blood sugar and mild borderline anemia. Labs were drawn 02/10/23. Reviewed labs with pt. Borderline anemia resolved. A1c 4.8%. Ongoing urine RBC. Uric acid level not drawn. Pt notes he had a gout attack about a week ago but does feel stable now with colchicine. He has an upcoming appt. with rheumatology. 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 Cognitive needs: No Hearing needs: No Vision needs: No Review of Systems Const Denies chills, Denies fatigue, Denies fever(s), Denies headache(s) and Denies weakness ENT Denies dizziness and Denies headache(s) Card Denies chest pain, Denies lightheadedness, Denies dyspnea and Denies other (Palpitations) Resp Denies cough, Denies dyspnea, Denies wheezing and Denies other ( shortness of breath) Musc Denies numbness and Denies tingling Neuro Denies dizziness, Denies headache(s), Denies numbness, Denies tingling, Denies paresthesias and Denies weakness Psych Denies anxiety and Denies depression Endo Denies fatigue Aller/Immun Denies wheezing Physical exam (Primary Care) Vital Signs: Last Vital Signs Pulse 82 02/12/23 11:43 BP 130/80 02/12/23 11:43 Pulse Ox 98 02/12/23 11:43 Oxygen Delivery Method Room Air 02/12/23 11:43 BMI result Body Mass Index 26.6 Tobacco/Smoking Status: Tobacco use Status Tobacco use date assessed 02/12/23 02/12/23 11:47 Patient Tobacco Use Status Former Tobacco user 02/12/23 11:47 e-Cigarette/Vaping Use Never Used 02/12/23 11:47 Const General: no acute distress and well developed Nutritional Appearance: well nourished Orientation/consciousness: patient oriented x3 HENMT Head: Yes normocephalic and Yes atraumatic Eyes General: appearance normal, both eyes and all related structures Pupils: Equal, round and reactive pupils present EOM: EOMs intact bilaterally Resp Effort & Inspection: normal respiratory effort Auscultation: clear to auscultation bilaterally Cardio Rate: regular rate Rhythm: regular rhythm Heart sounds: S1 normal heart sound present, S2 normal heart sound present, no gallops, no murmurs and no rubs Neuro General: patient oriented x3 and gait normal Cranial nerves: Yes Equal, round and reactive pupils present Psych Affect: normal affect Assessment and Plan Assessment & Plan (1) Gout: Code(s): M10.9 - Gout, unspecified Plan: Ongoing?elevated?uric?acid?levels?and?gout?flare?ups Recent?gout?flare?up?which?he?suppressed?with?cold?for?seen. Had?increased?allopurinol?in?January. Recheck?uric?acid?level?today Has?appointment?coming?up?with?rheumatology Orders: Orders Uric Acid Today M10.9 - Gout, unspecified Basic Metabolic Panel Today M10.9 - Gout, unspecified, Z00.00 - Encounter for general adult medical examination without abnormal findings Complete Blood Count Auto Diff Today M10.9 - Gout, unspecified, Z00.00 - Encounter for general adult medical examination without abnormal findings Erythrocyte Sedimentation Rate Today M10.9 - Gout, unspecified CRP High Sensitivity Today M10.9 - Gout, unspecified Coding Level of Care Code Est Pt Level 3 (69985) Diagnoses Gout M10.9
[2023-02-12 11:43] VITALS: BP 130/80; PULSE 82; O2SAT 98; BMI 26.6
== END 2023-02-12 12:16 | disposition home or self-care (01) ==
PROVIDERS: PCP Family Medicine; Visit Provider Family Medicine
DX: M10.9 Gout, unspecified (principal)
CPT/HCPCS: 99213

== ENCOUNTER 2023-02-12 12:18 | Outpatient (REF) | payer BC, SELFPAY ==
[2023-02-12 14:28] LABS: MANUAL DIFF FLAG NO
[2023-02-12 14:32] LABS: Basophils Absolute Auto 0.1 X10*3/uL (0.0-0.2); Basophils Percent Auto 1.1 % (0-2); Eosinophils Absolute Auto 0.1 X10*3/uL (0.0-0.4); Eosinophils Percent Auto 0.8 % (0-4); Hematocrit 44.1 % (42.0-52.0); Hemoglobin 14.6 g/dl (14.0-18.0); Imm Gran Abs Auto 0.02 X10*3/uL (0.00-0.03); Imm Gran Pct Auto 0.3 % (0.0-0.4); Lymphocytes Absolute Auto 1.3 X10*3/uL (1.2-4.9); Lymphocytes Percent Auto 20.5 % (20-40); Mean Corpuscular HGB Conc 33.1 g/dl (31.0-36.0); Mean Corpuscular Volume 84.6 fL (80.0-98.0); Mean Platelet Volume 11.7 fL (9.4-12.4); Monocytes Absolute Auto 0.7 X10*3/uL (0.1-1.2); Monocytes Percent Auto 10.6 % (2-11); Neutrophils Absolute Auto 4.2 x10*3/uL (2.0-8.3); Neutrophils Percent Auto 66.7 % (45-73); Platelet Count 284 X10*3/uL (160-400); Red Blood Count 5.21 X10*6/uL (4.60-5.80); Red Cell Distribution Width 15.1 % (11.0-16.0); White Blood Count 6.3 X10*3/uL (4.8-10.8)
[2023-02-12 14:35] LABS: Appearance Urine Clear; Color Urine Yellow; Glucose Urine UA Negative (Negative); Leukocyte Esterase Urine Negative (Negative); Nitrite Urine Negative (Negative); PH 5.5 (5.0-9.0); UMIC TRIGGER UA YES; Urine Blood Moderate (2+) (Negative); Urine Ketones Negative (Negative); Urine Protein Negative (Neg-Trace)
[2023-02-12 14:38] LABS: Bacteria Urine None Seen (None Seen); Hyaline Casts Urine 0-2 /LPF (0-2); Squamous Epithelial Cell Urine 0-2 /HPF (0-2); WBC Urine 0-5 /HPF (0-5)
[2023-02-12 14:41] LABS: Anion Gap 12 (12-20); Blood Urea Nitrogen 18 mg/dL (9-16); Calcium 9.6 mg/dL (8.4-10.2); Carbon Dioxide 28 mmol/L (22-29); Chloride 102 mmol/L (96-108); Estimated Glomerular Filt Rate > 60; Glucose Random 88 mg/dL (60-115); Potassium 3.9 mmol/L (3.3-5.1); Sodium 138 mmol/L (135-145); Uric Acid 5.3 mg/dL (3.4-7.0)
[2023-02-12 15:19] LABS: Erythrocyte Sedimentation Rate 16 MM/HR (0-15)
[2023-02-13 16:22] LABS: CRP High Sensitivity 6.6 mg/L
== END 2023-02-12 12:19 | disposition home or self-care (01) ==
LOC: HO.WFDLDS 12:18
PROVIDERS: Visit Provider Family Medicine
DX: Z00.00 Encounter for general adult medical examination without abnormal findings (principal); M10.9 Gout, unspecified
CPT/HCPCS: 36415; 80048; 81001; 84550; 85025; 85652; 86141

== ENCOUNTER 2023-03-10 11:25 | Outpatient (AMB) | payer BC, SELFPAY ==
--- NOTE | 2023-03-10 11:46 | MHC.OFFVIS ---
Intake Intake Visit Reasons: (spermatocele) Allergies No Known Allergies Allergy (Verified 02/12/23 11:46) HPI HPI Comments History of Present Illness Details Carmelo is a pleasant male. He is a patient Dr. Wilburn. He is seen for the following urologic conditions - epididymal cyst Postprocedure follow-up Well-healed Minimal issues P.r.n. Vasectomy scarring Prior vasectomy many years ago Lengthy recovery at that time due to bruising Scrotal ultrasound with left epididymal hyperechoic structure. On examination benign. 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 Cognitive needs: No Hearing needs: No Vision needs: No Review of Systems Const Denies chills and Denies fever(s) Card Reports no additional complaints and Denies syncope Resp Denies cough GI Denies abdominal pain and Denies heartburn Reports as per HPI and Denies change in libido Neuro Denies syncope Psych Denies change in libido Endo Denies change in libido Physical Exam Const General: cooperative, healthy appearing, comfortable and no acute distress Orientation/consciousness: patient oriented x3 HEENT Face and sinus: Yes normal facial exam Mouth: moist mucous membranes Neck Neck: Yes normal visual inspection, Yes full ROM and Yes trachea midline Chest Chest palpation & inspection: normal inspection of the chest Resp Effort & Inspection: normal respiratory effort, able to speak in complete sentences and no respiratory distress GI Inspection: Yes normal to inspection Back/Spine/Pelvis Cervical Spine: normal cervical lordosis Thoracic/Lumbar Spine: thoracic and lumbar spine normal to inspection Skin General skin exam: no rashes or lesions noted Neuro General: patient oriented x3, gait normal, tone normal and moves all extremities Extrem General: Yes normal to inspection and Yes capillary refill normal Assessment & Plan Assessment & Plan (1) Epididymal cyst: Code(s): N50.3 - Cyst of epididymis Plan PRN followup Patient Instructions: Imaging studies, laboratory and physical exam results were discussed and reviewed in detail. No major barriers to patient understanding were identified. An opportunity to ask questions regarding the treatment plan was provided. All questions were answered. The patient expressed understanding and agreement with the above treatment plan. The patient is aware they should contact our office by phone for worsening of their current condition or the appearance of new urologic symptoms. Compliance is encouraged with any medications and followup testing that is ordered. It is a privilege to participate in the urologic care of your patient. If you have any questions or concerns regarding treatment for the above conditions, or other urologic issues, please do not hesitate to contact me. The office telephone contact is [phone]. This note is constructed using voice recognition software. While every effort has been made to ensure accuracy refrigerator crater errors may have been included. Yours sincerely, Dr Chaitanya Verdugo MD, [place] [facility] Providers of Expert, Compassionate Care for the Genitourinary System Coding Level of Care Code Est Pt Level 3 (44262) Diagnoses Epididymal cyst N50.3
== END 2023-03-10 12:01 | disposition home or self-care (01) ==
PROVIDERS: PCP Family Medicine; Visit Provider Urology
DX: N50.3 Cyst of epididymis (principal)
CPT/HCPCS: 99024

== ENCOUNTER → 2023-03-10 11:25 | Outpatient (BNVA) | payer BC, SELFPAY | PROVIDERS: PCP Family Medicine; Visit Provider Urology ==

== ENCOUNTER 2023-04-15 09:19 | Outpatient (REF) | payer BC, SELFPAY ==
[2023-04-15 12:41] LABS: Alanine Aminotransferase 34 U/L (0-40); Alkaline Phosphatase 70 U/L (39-117); Anion Gap 14 (12-20); Aspartate Amino Transferase 33 U/L (5-37); Bilirubin Total 0.4 mg/dL (0.0-1.0); Blood Urea Nitrogen 19 mg/dL (9-16); C Reactive Protein 0.58 mg/dL (< or = 0.50); Calcium 9.6 mg/dL (8.4-10.2); Carbon Dioxide 27 mmol/L (22-29); Chloride 104 mmol/L (96-108); Estimated Glomerular Filt Rate > 60; Glucose Random 114 mg/dL (60-115); Potassium 4.3 mmol/L (3.3-5.1); Sodium 141 mmol/L (135-145); Uric Acid 5.3 mg/dL (3.4-7.0)
[2023-04-15 12:45] LABS: Rheumatoid Factor < 13.0 IU/mL (<15.0)
[2023-04-15 13:16] LABS: Erythrocyte Sedimentation Rate 10 MM/HR (0-15)
[2023-04-17 13:24] LABS: SM/Ribonucleoprotein Ab <1.0 NEG AI (<1.0 NEG); Smith Protein <1.0 NEG AI (<1.0 NEG)
[2023-04-18 11:27] LABS: Anti Nuclear Antibody Screen NEGATIVE (NEGATIVE)
[2023-04-19 16:33] LABS: HLA B27 Negative (Negative)
[2023-04-24 14:59] LABS: Cyclic Citrullinated Peptide <16 UNITS
== END 2023-04-15 09:20 | disposition home or self-care (01) ==
LOC: HO.LAB 09:19
PROVIDERS: PCP Family Medicine; Visit Provider Nurse Practitioner Family
DX: M25.472 Effusion, left ankle (principal); M25.462 Effusion, left knee; M1A.09X1 Idiopathic chronic gout, multiple sites, with tophus (tophi); Z87.39 Personal history of other diseases of the musculoskeletal system and connective tissue; Z79.899 Other long term (current) drug therapy
CPT/HCPCS: 36415; 80053; 84550; 85652; 86038; 86140; 86200; 86235; 86431; 86812

== ENCOUNTER 2023-04-15 09:19 | Outpatient (AMB) | payer BC, SELFPAY ==
--- NOTE | 2023-04-15 09:21 | MHC.OFFVIS ---
Intake Vital Signs 04/15/23 09:26 Height 6 ft Weight 191 lb 9.307 oz BMI 26.0 BP 118/70 Blood Pressure Location Rt brachial Position Sitting Pulse 92 Pulse Source Pulse Oximeter Temp 97 F Temp Source Skin Pulse Oximetry (%) 98 Oxygen Delivery Method Room Air Intake Visit Reasons: Gout Intake Note: New pt presents today for Gout consult. Reports stage 3 , based on personal readings, for 2 years, in general approx 15 years. 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 Adult Ministries Director Required: No Accompanied by: Self / Same As Patient Allergies No Known Allergies Allergy (Verified 04/15/23 09:28) Medication List - Last Reconciled 04/15/23 by JESSENIA Carl- allopurinol 200 mg (2 x 100 mg) PO DAILY 30 days bisacodyl (Dulcolax (bisacodyl)) 20 mg (4 x 5 mg) PO ONCE 1 day colchicine 0.3 mg PO DAILY PRN omeprazole 40 mg PO DAILY 90 days polyethylene glycol 3350 (Miralax) 238 grams PO ONCE PRN 1 day HPI HPI Comments History of Present Illness Details Mr. Rhodes is very pleasant 48-year-old male, referred by his PCP, Dr. Wilburn, for management of gout. He has a past medical history of GERD, shingles, kidney disease, and gout. In discussion with the patient today he reports ongoing issues with gout flares and still has flares after starting Allopurinol. He was 1st diagnosed with gout 15 years ago and was having gout flares on average monthly. He was started Allopurinol in 12/2022 and is currently on 200 mg q.d. He has been at 200 mg for the past two months and believes he continues to have flares. Prior to Allopurinol, he used mainly colchicine for attacks. Since starting Allopurinol, the uric acid has decreased from 7.10 October 2022 and is 5.3 as of February 2023. He drinks vodka daily and thinks he consumes adequate amounts of water daily. The patient reports he takes microdose of THC nightly. The patient reports having had swelling due to gout flares in multiple joints at the same time, in knees and feet. He had 4 to 5 significant flares in the year prior to starting Allopurinol. These were resolved with Colchicine. Patient understands that the moment he feels the tingly sensation it is best to take the colchicine immediately. Upon inquiry to asses for other inflammatory causes of joint pain and swelling, patient denies uveitis, psoriasis, lower back pain, plantar fasciitis, dactylitis or other swelling not resolved with colchicine. He denies prolonged morning stiffness of more than 1 hour. [facility] Medical History (Updated 04/15/23 @ 10:33 by JESSENIA Carl-) Long-term current use of high risk medication other than anticoagulant Idiopathic gout of multiple sites Bilateral knee pain Swelling of foot joint Swelling of joint, ankle, left Swelling of joint of left knee Kidney disease Shingles GERD (gastroesophageal reflux disease) Gout Surgical History H/O arthroscopic knee surgery Family History Father Gout Maternal Grandfather Alcohol abuse Brother Kidney disease Social History Household Members: None Housing: House Alcohol intake: current Patient Tobacco Use Status: Former Tobacco user e-Cigarette/Vaping Use: Never Used Substance Use Type: Marijuana service: No Current occupational status: employed 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 External ear normal, canal clear and tympanic membrane normal. NOSE/SINUS:? Airflow through both nares, no nasal discharge, no bleeding THROAT:? Oral mucosa moist, no ulcerations NECK:? No thyromegaly or masses, no adenopathy, trachea midline. HEART:? Regular rhythm, S1-S2 heard, no murmurs, rubs or gallops. LUNG:? Clear to percussion and auscultation EXTREMITIES:? No edema, no calf tenderness, normal peripheral pulses. NEURO:? Oriented and alert x3.? No focal weakness.? Reflexes symmetric.? Gait normal. SKIN:? There are no skin lesions evident. No objective signs of Raynaud's phenomenon. JOINT EXAM: Cervical Spine:.? Full range of motion without pain; no tenderness. Thoracic Spine:.? No scoliosis.? No tenderness on palpation. Lumbar Spine:.? Alignment normal.? Full range of motion without pain, no tenderness. Chest Wall:.? No tenderness, swelling, increased warmth or erythema. Hands:.? Normal pain-free range of motion without tenderness, swelling, increased warmth or erythema. 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 Wrists:.? Normal pain-free range of motion without tenderness, swelling, increased warmth or erythema. Elbows:. Normal pain-free range of motion without tenderness, swelling, increased warmth or erythema. Shoulders:.?? Full range of motion without pain. No tenderness, weakness, swelling, increased warmth or erythema. Hips:.? Full range of motion without pain. Hip bursa:.? No tenderness. Knees:.?? Normal pain-free range of motion without tenderness, swelling, increased warmth or erythema.? There is no effusion or crepitation Ankles:.? Normal pain-free range of motion without tenderness, swelling, increased warmth or erythema. Feet:.? Normal pain-free range of motion without tenderness, swelling, increased warmth or erythema. bump to side of right midfoot ? Results Reviewed Results Reviewed: Laboratory Tests 10/22/22 10/22/22 01/02/23 07:20 07:20 07:06 ESR 38 H BUN Uric Acid 7.7 H 7.8 H C-React Prot High Sens >10.0 H 02/10/23 02/12/23 02/12/23 07:08 12:20 12:20 ESR 16 H BUN 13 18 H Uric Acid C-React Prot High Sens 02/12/23 02/12/23 12:20 12:20 ESR BUN Uric Acid 5.3 C-React Prot High Sens 6.6 H Assessment & Plan Assessment & Plan (1) History of gout: Code(s): Z87.39 - Personal history of other diseases of the musculoskeletal system and connective tissue (2) Idiopathic gout of multiple sites: Code(s): M10.09 - Idiopathic gout, multiple sites Qualifiers: Chronicity: chronic Presence of tophus: with tophus Qualified Code(s): M1A.09X1 - Idiopathic chronic gout, multiple sites, with tophus (tophi) (3) Long-term current use of high risk medication other than anticoagulant: Code(s): Z79.899 - Other longterm (current) drug therapy Plan #Gout: Carmelo is here for evaluation and management of Gout. According to labs patient seemed to have adequate kidney function, therefore it is likely that he may be an under excretor or over manager data center for uric acid. His uric Acid are WNL so I will not change the Allopurinol dose at this time. Given that his uric acid is normal and he continues to have frequent flares, I will evaluate further to make sure there is not a concomitant connective tissue disease such as a spondyloarthropathy that can mimic gout presentation. I will also give him colchicine to keep on hand. I will obtain updated labs for gout and order CTD labs. I will obtain xrays of feet and knees to evaluate for inflammatory changes. #Round Boner Use: Discuss with patient the possible side effects of Allopurinol, such as Antonio-Riley Syndrome. We will continue to monitor with labs for adequet renal and liver functions. Orders: Orders Erythrocyte Sedimentation Rate Today M25.462 - Effusion, left knee, M25.472 - Effusion, left ankle, M25.476 - Effusion, unspecified foot, Z87.39 - Personal history of other diseases of the musculoskeletal system and connective tissue C Reactive Protein Today M25.462 - Effusion, left knee, M25.472 - Effusion, left ankle, M25.476 - Effusion, unspecified foot, Z87.39 - Personal history of other diseases of the musculoskeletal system and connective tissue Cyclic Citrullinated Peptide Today M25.462 - Effusion, left knee, M25.472 - Effusion, left ankle, M25.476 - Effusion, unspecified foot, Z87.39 - Personal history of other diseases of the musculoskeletal system and connective tissue Comprehensive Met. Panel Today M25.462 - Effusion, left knee, M25.472 - Effusion, left ankle, M25.476 - Effusion, unspecified foot, Z87.39 - Personal history of other diseases of the musculoskeletal system and connective tissue XR knee LT 3V Today M25.462 - Effusion, left knee, M25.472 - Effusion, left ankle, M25.476 - Effusion, unspecified foot, M25.561 - Pain in right knee, M25.562 - Pain in left knee XR knee RT 3V Today M25.462 - Effusion, left knee, M25.472 - Effusion, left ankle, M25.476 - Effusion, unspecified foot, M25.561 - Pain in right knee, M25.562 - Pain in left knee Uric Acid Today M25.462 - Effusion, left knee, M25.472 - Effusion, left ankle, M25.476 - Effusion, unspecified foot, Z87.39 - Personal history of other diseases of the musculoskeletal system and connective tissue HLA B27 Today M25.462 - Effusion, left knee, M25.472 - Effusion, left ankle, M25.476 - Effusion, unspecified foot, Z87.39 - Personal history of other diseases of the musculoskeletal system and connective tissue Rheumatoid Factor Today M25.462 - Effusion, left knee, M25.472 - Effusion, left ankle, M25.476 - Effusion, unspecified foot, Z87.39 - Personal history of other diseases of the musculoskeletal system and connective tissue JONO Reflex Titer and Pattern Today M25.462 - Effusion, left knee, M25.472 - Effusion, left ankle, M25.476 - Effusion, unspecified foot, Z87.39 - Personal history of other diseases of the musculoskeletal system and connective tissue Anti Extractable Nuclear Ag Today M25.462 - Effusion, left knee, M25.472 - Effusion, left ankle, M25.476 - Effusion, unspecified foot, Z87.39 - Personal history of other diseases of the musculoskeletal system and connective tissue XR foot LT min 3V Today M25.462 - Effusion, left knee, M25.472 - Effusion, left ankle, M25.476 - Effusion, unspecified foot, M25.561 - Pain in right knee, M25.562 - Pain in left knee XR foot RT min 3V Today M25.462 - Effusion, left knee, M25.472 - Effusion, left ankle, M25.476 - Effusion, unspecified foot, M25.561 - Pain in right knee, M25.562 - Pain in left knee Medications: Changed From colchicine 0.3 mg PO DAILY PRN M10.9 - Gout, unspecified To colchicine PRN; Day 1:Take 1 tablet at onset of gout flare, 1 tablet within 1 hour. Then take 1 tablet for 4 more days or until flare resolves. 30 tabs 0RF Gout Flare M10.9 - Gout, unspecified Coding Level of Care Code New Pt Level 4 (38930) Diagnoses History of gout Z87.39 Idiopathic chronic gout of multiple sites with tophus M1A.09X1 Chronicity: chronic Presence of tophus: with tophus Long-term current use of high risk medication other than anticoagulant Z79.899
[2023-04-15 09:26] VITALS: BP 118/70; PULSE 92; TEMP 36.1; O2SAT 98; BMI 26.0
== END 2023-04-15 10:13 | disposition home or self-care (01) ==
PROVIDERS: PCP Family Medicine; Referring Provider Family Medicine; Visit Provider Nurse Practitioner Family
DX: Z87.39 Personal history of other diseases of the musculoskeletal system and connective tissue (principal); M1A.09X1 Idiopathic chronic gout, multiple sites, with tophus (tophi); Z79.899 Other long term (current) drug therapy
CPT/HCPCS: 99204; 99214

== ENCOUNTER 2023-04-22 09:49 | Outpatient (REF) | payer BC, SELFPAY ==
--- NOTE | ~2023-04-22 | XR_ITS ---
EXAMINATION: XR FOOT, RIGHT CLINICAL INFORMATION: Pain and effusion. COMPARISON: None available. TECHNIQUE: AP, lateral, and oblique views of the right foot. FINDINGS: Bony alignment and mineralization are normal. No fracture, dislocation or right ankle joint effusion is seen. Boehler's angle is normal. There is a minimal plantar calcaneal spur. There is no bunion formation of the first metatarsal head. No focal soft tissue swelling, gas or foreign body is seen. XR/XR foot RT min 3V IMPRESSION: 1. No right foot fracture, dislocation or joint effusion is seen. 2. There is a minimal plantar calcaneal spur. 3. There is mild bunion formation of the right first metatarsal head. EXAMINATION: XR FOOT, LEFT CLINICAL INFORMATION: Pain and effusion. COMPARISON: None available. TECHNIQUE: AP, lateral, and oblique views of the left foot. FINDINGS: Bony alignment and mineralization are normal. No fracture, dislocation or left ankle joint effusion is seen. Boehler's angle is normal. There is a minimal plantar calcaneal spur. There is minimal degenerative change of the first metatarsophalangeal joint. No focal soft tissue swelling, gas or foreign body is seen. IMPRESSION: 1. No left foot fracture, dislocation or joint effusion is seen. 2. There is a minimal plantar calcaneal spur. 3. There is minimal degenerative change of the left first metatarsophalangeal joint.
--- NOTE | ~2023-04-22 | XR_ITS ---
EXAMINATION: XR BILATERAL KNEES CLINICAL INFORMATION: Reason for Exam M25.476 - Effusion, unspecified foot COMPARISON: None TECHNIQUE: 3 views of the bilateral knees FINDINGS: RIGHT KNEE: No acute fracture or dislocation. Joint spaces are maintained. Small suprapatellar joint effusion. Soft tissues are unremarkable. LEFT KNEE: No acute fracture or dislocation. Joint spaces are maintained. No joint effusion. Soft tissues are unremarkable. XR/XR knee RT 3V IMPRESSION: * No acute osseous abnormality. * Small right suprapatellar joint effusion.
--- NOTE | ~2023-04-22 | XR_ITS ---
EXAMINATION: XR BILATERAL KNEES CLINICAL INFORMATION: Reason for Exam M25.476 - Effusion, unspecified foot COMPARISON: None TECHNIQUE: 3 views of the bilateral knees FINDINGS: RIGHT KNEE: No acute fracture or dislocation. Joint spaces are maintained. Small suprapatellar joint effusion. Soft tissues are unremarkable. LEFT KNEE: No acute fracture or dislocation. Joint spaces are maintained. No joint effusion. Soft tissues are unremarkable. XR/XR knee LT 3V IMPRESSION: * No acute osseous abnormality. * Small right suprapatellar joint effusion.
--- NOTE | ~2023-04-22 | XR_ITS ---
EXAMINATION: XR FOOT, RIGHT CLINICAL INFORMATION: Pain and effusion. COMPARISON: None available. TECHNIQUE: AP, lateral, and oblique views of the right foot. FINDINGS: Bony alignment and mineralization are normal. No fracture, dislocation or right ankle joint effusion is seen. Boehler's angle is normal. There is a minimal plantar calcaneal spur. There is no bunion formation of the first metatarsal head. No focal soft tissue swelling, gas or foreign body is seen. XR/XR foot LT min 3V IMPRESSION: 1. No right foot fracture, dislocation or joint effusion is seen. 2. There is a minimal plantar calcaneal spur. 3. There is mild bunion formation of the right first metatarsal head. EXAMINATION: XR FOOT, LEFT CLINICAL INFORMATION: Pain and effusion. COMPARISON: None available. TECHNIQUE: AP, lateral, and oblique views of the left foot. FINDINGS: Bony alignment and mineralization are normal. No fracture, dislocation or left ankle joint effusion is seen. Boehler's angle is normal. There is a minimal plantar calcaneal spur. There is minimal degenerative change of the first metatarsophalangeal joint. No focal soft tissue swelling, gas or foreign body is seen. IMPRESSION: 1. No left foot fracture, dislocation or joint effusion is seen. 2. There is a minimal plantar calcaneal spur. 3. There is minimal degenerative change of the left first metatarsophalangeal joint.
== END 2023-04-22 09:50 | disposition home or self-care (01) ==
LOC: HO.XRAY 09:49
PROVIDERS: PCP Family Medicine; Visit Provider Nurse Practitioner Family
DX: M25.472 Effusion, left ankle (principal); M25.471 Effusion, right ankle; M25.462 Effusion, left knee; M25.561 Pain in right knee
CPT/HCPCS: 73562; 73630

== ENCOUNTER 2023-04-30 08:36 | Day surgery (SDC) | payer BC, SELFPAY ==
--- NOTE | 2023-04-29 12:08 | P.CONAN_ITS ---
Documented by User: Sabrina Velazquez NP 04/29/23 12:10 HPI - Anesthesia Eval Consult details Narrative: 48yo M for Upper Endoscopy and Colonoscopy s/p spermatocele 01/2023 GA-LMA 5 PMFSH Active Problems Active Problems: All Active Problems (Updated 04/15/23 @ 10:33 by Leticia Grewal [facility]) Long-term current use of high risk medication other than anticoagulant (Acute) Idiopathic gout of multiple sites (Acute) Bilateral knee pain (Acute) Swelling of foot joint (Acute) Swelling of joint, ankle, left (Acute) Swelling of joint of left knee (Acute) Epididymal cyst (Acute) Hematuria (Acute) Polyarthralgia (Acute) Elevated blood uric acid level (Acute) History of gout (Acute) Screening for prostate cancer (Acute) Screening for colon cancer (Acute) Adult general medical exam (Acute) Encounter for screening colonoscopy (Acute) Spermatocele (Acute) Elevated fasting glucose (Acute) Proteinuria (Acute) Pain and swelling of lower extremity (Acute) Alcohol use (Acute) Mass of left testicle (Acute) History of vasectomy (Acute) GERD (gastroesophageal reflux disease) (Acute) Gout (Acute) Laboratory exam ordered as part of routine general medical examination (Acute) Past Medical History Medical History Long-term current use of high risk medication other than anticoagulant Idiopathic gout of multiple sites Bilateral knee pain Swelling of foot joint Swelling of joint, ankle, left Swelling of joint of left knee Kidney disease Shingles GERD (gastroesophageal reflux disease) Gout Family History Family History Father Gout Maternal Grandfather Alcohol abuse Brother Kidney disease Surgical History Surgical History H/O arthroscopic knee surgery History of Problems with Anesthesia: No Social History Social History Household Members: None Housing: House Alcohol intake: current Patient Tobacco Use Status: Former Tobacco user e-Cigarette/Vaping Use: Never Used Substance Use Type: Marijuana Advance Directives: No Advance Directives Information Provided: Yes service: No Current occupational status: employed 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 Cognitive needs: No Hearing needs: No Vision needs: No Meds Allergies Allergy/AdvReac Type Severity Reaction Status Date / Time No Known Allergies Allergy Verified 04/15/23 09:28 Exam Pertinent Lab Results Pertinent Lab Results: Laboratory Tests 02/12/23 04/15/23 12:20 10:52 WBC 6.3 Hgb 14.6 Hct 44.1 Plt Count 284 Sodium 141 Potassium 4.3 Chloride 104 Carbon Dioxide 27 BUN 19 H Creatinine 0.79 Assessment and Plan Assessment Anesthesia Assessment: Chart Reviewed Final Anesthetic Review History of Problems with Anesthesia: No Documented by User: Joanie Barron MD 04/30/23 09:01 [facility] Past Medical History Medical History Long-term current use of high risk medication other than anticoagulant Idiopathic gout of multiple sites Bilateral knee pain Swelling of foot joint Swelling of joint, ankle, left Swelling of joint of left knee Kidney disease Shingles GERD (gastroesophageal reflux disease) Gout Family History Family History Father Gout Maternal Grandfather Alcohol abuse Brother Kidney disease Family history of problems with anesthesia: No Surgical History Surgical History H/O arthroscopic knee surgery Social History Social History Household Members: None Housing: House Alcohol intake: current Patient Tobacco Use Status: Former Tobacco user e-Cigarette/Vaping Use: Never Used Substance Use Type: Marijuana Advance Directives: No Advance Directives Information Provided: Yes service: No Current occupational status: employed 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 Cognitive needs: No Hearing needs: No Vision needs: No Meds Allergies Allergy/AdvReac Type Severity Reaction Status Date / Time No Known Allergies Allergy Verified 04/15/23 09:28 Exam Airway Mallampati Class: II TM Dist: >3cm Neck ROM: Full Heart: rrr Lungs: cta Assessment and Plan Assessment Anesthesia Assessment: Anesthesia Plan Discussed Final Anesthetic Review Family History of Problems with Anesthesia: No NPO: Yes ASA Class: II Final Preanesthetic Review: No Changes in Pt Med Stat, Meds/Allgs Chart Reviewed, Consent Obtained/Reviewed and Anes Risks/Benef Reviewed Patient Risk: Low Procedure Risk: Low Anesthetic Plan Anesthetic Plan: MAC: Disposition: Standard PACU
[2023-04-30 08:54] VITALS: BMI 25.5
[2023-04-30 09:21] VITALS: BP 140/87; PULSE 98; RESP 15; TEMP 37.2; O2SAT 98
[2023-04-30] MEDS: Lactated Ringers 1,000 ML 100 ML IVCONT (09:24)
--- NOTE | 2023-04-30 09:37 | MHC.SHP ---
Pre-Procedural Eval Section A Date of Service: 04/30/23 Section B Chief Complaint: gerd,screening Relevant Family History (Specify if Yes): No Relevant Social History: Alcohol Use Present Medications: see Short Stay Collaborative assessment Medical History: Significant History (Long-term current use of high risk medication other than anticoagulant Idiopathic gout of multiple sites Bilateral knee pain Swelling of foot joint Swelling of joint, ankle, left Swelling of joint of left knee Kidney disease Shingles GERD (gastroesophageal reflux disease) Gout) History of Previous Operations: Relevant previous surgery/procedure and date(s) (H/O arthroscopic knee surgery) Allergies: Allergies Allergy/AdvReac Type Severity Reaction Status Date / Time No Known Allergies Allergy Verified 04/30/23 09:04 Review of Systems Sugical H&P ROS: Negative: Constitution, Cardiovascular, Respiratory, Neurological, Psychiatric, Hem-Onc, Allergic/Immunologic, Gastrointestinal, Genitourinary, Musculoskeletal, Integumentary, Endocrine and Eyes/Ears/Nose/Throat Exam Surgical H&P Exam: Normal: HEENT, Normal: Heart, Normal: Lungs, Normal: Extremities, Normal: Abdomen, Normal: Skin and Normal: Neurological Plan Diagnosis/Plan: Unchanged I have reviewed the history and physical and performed a pertinent physical examination on my patient. No changes have occurred unless specified. Time Spent With Patient Time: Total time managing care of this patient today ____ minutes.
--- NOTE | 2023-04-30 09:38 | W.PM.OPN ---
Operative Note Operative Note Date of Service: 04/30/23 Narrative: Operative Information Procedure Description: EGD, Colonoscopy Indication: GERD, screening Anesthesia: MAC FLEXIBLE TRANSORAL UPPER GASTROINTESTINAL ENDOSCOPY AND COLONOSCOPY PROCEDURE NOTE UPPER ENDOSCOPY Consent: Indications for the procedure and potential complications of bleeding, perforation, reaction to medications and missed diagnosis were discussed with the patient and informed consent was obtained. Instrument: Olympus GIF H 190 J mid size upper endoscope Monitoring: Vital signs and clinical assessment, continuous EKG monitoring, Pulse oximetry, Carbon Dioxide monitoring and blood pressure monitoring were done throughout the procedure. Procedure: The patient was placed in the left lateral decubitis position and pre-procedure medications were administered and a bite block was placed. The endoscope was inserted into the mouth and advanced under direct vision to the third part of duodenum. A careful inspection was made as the upper endoscope was withdrawn including a retroflexed examination of the proximal stomach; Findings and interventions are described below. Findings: Larynx:normal Esophagus: GE junction at 37 cm, diaphragm hiatus at 40 cm, consistent with 3 cm sliding hiatal hernia-- bx taken from GEJ, distal and proximal esophagus Stomach: Patchy granularity. Biopsies were obtained. Grade 2 flap valve on retroflexed examination of the cardia. Few fundic gland polyps noted Duodenum: Normal bulb and descending duodenum, Intervention: Biopsies as noted above COLONOSCOPY Instrument: Olympus variable stiffness pediatric scope 190L Colonoscopy Monitoring: Vital signs and clinical assessment, continuous EKG monitoring, Pulse oximetry, Carbon Dioxide monitoring and blood pressure monitoring were done throughout the procedure. Colon withdrawal time was 12 minutes. Procedure: The patient was placed in the left lateral decubitis position and pre-procedure medications were administered. After a digital rectal examination of the ano-rectum, the video colonoscope was inserted into the rectum and advanced through the colon to the cecum/TI. The colonoscope was slowly withdrawn in a retrograde panoramic fashion and the colon mucosa was carefully examined including a retroflexed view of the rectum. Findings and interventions are described below. Procedure Difficulty: Findings: Terminal Ileum-normal Cecum: 6-7 mm sessile polyp removed with cold snare, not retrieved Ascending Colon: few diverticula seen Transverse Colon -normal Descending Colon:normal Sigmoid Colon:moderate diverticulosis Rectum: Retroflexion with sma;; internal hemorrhoids, grade I Anorectum - normal Colon preparation: [place] Bowel Preparation Scale Right colon; 2 Transverse colon: 3 Left colon; 3 (0 = Unprepared colon segment with mucosa not seen due to solid stool that cannot be cleared. 1 = Portion of mucosa of the colon segment seen, but other areas of the colon segment not well seen due to staining, residual stool and/or opaque liquid. 2 = Minor amount of residual staining, small fragments of stool and/or opaque liquid, but mucosa of colon segment seen well. 3 = Entire mucosa of colon segment seen well with no residual staining, small fragments of stool or opaque liquid) Impression and Post Procedure Diagnosis: Endoscopy Findings: gastritis haital hernia fundic gland polyps Colonoscopy Findings: polyp internal hemorrhoids diverticular disease Plan: Await Pathology results Repeat Colonoscopy in 5 years due to adenomatous appearing polyp or earlier if clinically indicated High fiber diet leaflet avoid straining at stool, epsom salts and sitz bath, anusol supps or cream cut down alcohol intake, GERd precautions Above findings were reviewed with the patient and relevant handouts were provided if indicated.
[2023-04-30 10:21] VITALS: BP 114/74; PULSE 98; RESP 16; TEMP 36.2; O2SAT 99
[2023-04-30 10:36] VITALS: BP 138/91; PULSE 85; RESP 20; TEMP 36.9; O2SAT 100
== END 2023-04-30 12:03 | disposition home or self-care (01) ==
PROVIDERS: PCP Family Medicine; Visit Provider Internal Medicine Gastroenterology
PROC: (CPT 45385; principal; 2023-04-30 11:40)
DX: Z12.11 Encounter for screening for malignant neoplasm of colon (principal); K63.5 Polyp of colon; K57.30 Diverticulosis of large intestine without perforation or abscess without bleeding; K64.0 First degree hemorrhoids; K21.9 Gastro-esophageal reflux disease without esophagitis; K31.7 Polyp of stomach and duodenum; K29.50 Unspecified chronic gastritis without bleeding; K44.9 Diaphragmatic hernia without obstruction or gangrene; N28.9 Disorder of kidney and ureter, unspecified; M1A.09X1 Idiopathic chronic gout, multiple sites, with tophus (tophi); Z79.899 Other long term (current) drug therapy; Z86.19 Personal history of other infectious and parasitic diseases
CPT/HCPCS: 45385; 43239; 88305; 88307; 88313; 88342; J1596; J2250; J2704

== ENCOUNTER → 2023-04-30 08:36 | Outpatient (BNV) | payer BC, SELFPAY | PROVIDERS: PCP Family Medicine; Visit Provider Internal Medicine Gastroenterology | DX: Z12.11 Encounter for screening for malignant neoplasm of colon (principal); K57.90 Diverticulosis of intestine, part unspecified, without perforation or abscess without bleeding; K63.5 Polyp of colon; K64.0 First degree hemorrhoids; K21.9 Gastro-esophageal reflux disease without esophagitis; K31.7 Polyp of stomach and duodenum; K29.70 Gastritis, unspecified, without bleeding | CPT/HCPCS: 43239; 45385 ==

== ENCOUNTER 2023-06-18 12:30 | Outpatient (AMB) | payer BC, SELFPAY ==
--- NOTE | 2023-06-18 12:43 | MHC.OFFVIS ---
Intake Vital Signs 06/18/23 12:49 Height 6 ft Weight 191 lb 12.835 oz BMI 26.0 BP 126/103 H Blood Pressure Location Lt brachial Position Sitting Pulse 84 Intake Visit Reasons: s/p egd/colon Intake Note: Carmelo presents in the office as a follow up EGD and COLO. CC: He is not having any concerns. Attendance Clerk Required: No Allergies No Known Allergies Allergy (Verified 06/18/23 12:50) Medication List - Last Reconciled 06/18/23 by Mery Still PA-C allopurinol 200 mg (2 x 100 mg) PO DAILY 30 days colchicine PRN; Day 1:Take 1 tablet at onset of gout flare, 1 tablet within 1 hour. Then take 1 tablet for 4 more days or until flare resolves. omeprazole 40 mg PO DAILY 90 days HPI HPI Comments History of Present Illness Details A 48 y/o male f/u after index screening colonoscopy and EGD Anxious-BP- up No c/o-cp, MEDRANO, sob Tolerated procedures well No GI complaints- Appetite good- admits he drinks too much Bowels normal No N/V/D-abdominal pain- PFSH Medical History Spermatocele Hematuria History of snoring Long-term current use of high risk medication other than anticoagulant Idiopathic gout of multiple sites Bilateral knee pain Swelling of foot joint Swelling of joint, ankle, left Swelling of joint of left knee Kidney disease Shingles GERD (gastroesophageal reflux disease) Gout Surgical History Hx of esophagogastroduodenoscopy Hx of colonoscopy H/O arthroscopic knee surgery Family History Father Gout Maternal Grandfather Alcohol abuse Brother Kidney disease Social History Household Members: None Housing: House Alcohol intake: current Patient Tobacco Use Status: Former Tobacco user Quit Date: age 23 e-Cigarette/Vaping Use: Never Used Substance Use Type: Marijuana service: No Current occupational status: employed 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 Cognitive needs: No Hearing needs: No Vision needs: No Review of Systems Const All systems reviewed & are unremarkable except as noted in HPI and below Physical Exam Vital Signs: Last Vital Signs Pulse 84 06/18/23 12:49 BP 126/103 H 06/18/23 12:49 BMI result Body Mass Index 26.0 Const General: cooperative, comfortable and no acute distress Orientation/consciousness: patient oriented x3 Limitations: no limitations Neuro General: patient oriented x3 Results Reviewed Results Reviewed: Impression and Post Procedure Diagnosis: Endoscopy Findings: gastritis haital hernia fundic gland polyps Colonoscopy Findings: polyp internal hemorrhoids diverticular disease Plan: Await Pathology results Repeat Colonoscopy in 5 years due to adenomatous appearing polyp or earlier if clinically indicated High fiber diet leaflet avoid straining at stool, epsom salts and sitz bath, anusol supps or cream cut down alcohol intake, GERd precautions : 1975 Submitted by: Lion Casanova MD Copies to: Victorino Wilburn MD MR #: [id number] Status: [facility] Collected: 04/30/23 Location: [facility] Received: 04/30/23 Diagnosis A. Stomach, random, biopsy: Oxyntic mucosa with mild chronic inactive inflammation; no Helicobacter organisms seen. B. EG junction, biopsy: - Cardiofundic-type mucosa with mild chronic inactive inflammation; no intestinal metaplasia seen. - Squamous mucosa within normal limits. C. Esophagus, distal, biopsy: Squamous epithelium within normal limits; no inflammation seen. D. Esophagus, proximal, biopsy: Squamous epithelium within normal limits; no inflammation seen. Clinical History Pre-Op Dx: Screening and GERD Post-Op Dx: Diverticulosis, cecal polyp, hemorrhoids, fundal polyp, gastritis, hiatal hernia Microscopic Description A-D. Microscopic sections examined. No metaplastic changes are seen, supported by AB/PAS stains (A and B); no Helicobacter organisms are seen, supported by H. pylori immunostain (A). Material Received A. Random stomach bx's B. EG junction bx's C. Distal esophagus bx's D. Proximal esophagus bx's Gross Description Received in 4 parts. Part A: Received in formalin labeled ?random stomach biopsies? are 2 pieces of spaulding-pink tissue both measuring 0.2 cm, all the submitted in cassette labeled A. Part B: Received in formalin labeled ?eg junction biopsies? are 2 pieces of spaulding-pink tissue measuring from 0.2-0.3 cm, all submitted in cassette labeled B. Part C: Received in formalin labeled ?distal esophagus biopsies? are 2 pieces of spaulding tissue measuring from 0.1-0.2 cm, all submitted in cassette labeled C. Patient: Carmelo Ching Age/Sex: 48/M MR#: [id number] Page 1 of 2 Assessment & Plan Assessment & Plan (1) GERD (gastroesophageal reflux disease): Code(s): K21.9 - Gastro-esophageal reflux disease without esophagitis Plan: cont ppi (2) Tubular adenoma: Comment: very pleasant-gent polyp not retrieved- Code(s): D36.9 - Benign neoplasm, unspecified site Plan: 5 year repeat (3) Fundic gland polyposis of stomach: Code(s): K31.7 - Polyp of stomach and duodenum Plan: reviewed (4) Diverticulosis of colon: Code(s): K57.30 - Diverticulosis of large intestine without perforation or abscess without bleeding Plan: er protocol (5) Hemorrhoids: Code(s): K64.9 - Unspecified hemorrhoids Plan: avoid strain Patient Instructions: 5 year recall- adenoma Diverticulosis/ itis- ER protocol HFD Avoid strain Reflux precautions- avoid culprits -etoh- discussed f/u pcp BP Coding Level of Care Code Est Pt Level 3 (75714) Diagnoses GERD (gastroesophageal reflux disease) K21.9 Tubular adenoma D36.9 Fundic gland polyposis of stomach K31.7 Diverticulosis of colon K57.30 Hemorrhoids K64.9 Time Spent (min) 30
[2023-06-18 12:49] VITALS: BP 126/103; PULSE 84; BMI 26.0
== END 2023-06-18 14:12 | disposition home or self-care (01) ==
PROVIDERS: PCP Family Medicine; Visit Provider Physician Assistant
DX: K21.9 Gastro-esophageal reflux disease without esophagitis (principal); D36.9 Benign neoplasm, unspecified site; K31.7 Polyp of stomach and duodenum; K57.30 Diverticulosis of large intestine without perforation or abscess without bleeding; K64.9 Unspecified hemorrhoids
CPT/HCPCS: 99213

== ENCOUNTER → 2023-06-18 12:30 | Outpatient (BNVA) | payer BC, SELFPAY | PROVIDERS: PCP Family Medicine; Visit Provider Physician Assistant ==

== ENCOUNTER 2024-03-10 08:07 | Outpatient (AMB) | payer BC, SELFPAY ==
--- NOTE | 2024-03-10 08:17 | A.OFFVIS_ITS ---
Vital Signs 03/10/24 08:22 Height 6 ft Weight 195 lb 12.328 oz BMI 26.5 BP 120/80 Blood Pressure Location Rt brachial Position Sitting Respiration 18 Pulse 78 Pulse Source Pulse Oximeter Pulse Oximetry (%) 98 Oxygen Delivery Method Room Air Intake Visit Reasons: gout/CM Intake Note: Patient presents for Gout. Allergies No Known Allergies Allergy (Verified 06/18/23 12:50) Medication List - Last Reconciled 03/10/24 by Keith Pettit MD allopurinol 200 mg (2 x 100 mg) PO DAILY omeprazole 40 mg PO DAILY 90 days HPI Comments Details: This is a 49-year-old male with gout who presents for follow-up. He was last seen in clinic 04/2023. At that time he was evaluated by Leticia Rucker. States that his gout has been much better controlled. Has not had gout flare- ups in over 6 months. Compliant with allopurinol 200 mg daily. Has not used colchicine in more than 6 months. He also states that he has made some lifestyle changes. His daughters have mood out of his house and he is now eating healthier. But he continues to drink regularly. [facility] Medical History Spermatocele Hematuria History of snoring Long-term current use of high risk medication other than anticoagulant Idiopathic gout of multiple sites Bilateral knee pain Swelling of foot joint Swelling of joint, ankle, left Swelling of joint of left knee Kidney disease Shingles GERD (gastroesophageal reflux disease) Gout Surgical History Hx of esophagogastroduodenoscopy Hx of colonoscopy H/O arthroscopic knee surgery Family History Father Gout Maternal Grandfather Alcohol abuse Brother Kidney disease Social History Household Members: None Housing: House Alcohol intake: current Patient Tobacco Use Status: Former Tobacco user e-Cigarette/Vaping Use: Never Used Substance Use Type: Marijuana service: No Current occupational status: employed 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 Cognitive needs: No Hearing needs: No Vision needs: No Review of Systems Musc Denies arthralgias, Denies joint swelling and Denies stiffness Physical Exam Vital Signs: Last Vital Signs Pulse 78 12/05/24 08:22 Resp 18 03/10/24 08:22 BP 120/80 03/10/24 08:22 Pulse Ox 98 03/10/24 08:22 Oxygen Delivery Method Room Air 03/10/24 08:22 BMI result Body Mass Index 26.5 Const General: cooperative, healthy appearing and comfortable Nutritional Appearance: overweight Orientation/consciousness: patient oriented x3 Limitations: no limitations HEENT Head: Yes normocephalic and Yes atraumatic Mouth: moist mucous membranes Resp Effort & Inspection: normal respiratory effort and able to speak in complete sentences Skin General skin exam: no rashes or lesions noted Neuro General: patient oriented x3 Extrem Other: No active synovitis No tophi noted today No knee pain with full flexion-extension bilaterally Assessment & Plan Assessment & Plan (1) Idiopathic gout of multiple sites: Code(s): M10.09 - Idiopathic gout, multiple sites Category: Medical Qualifiers: Chronicity: chronic Presence of tophus: with tophus Qualified Code(s): M1A.09X1 - Idiopathic chronic gout, multiple sites, with tophus (tophi) Plan: This is a 49-year-old male with history of gout who presents for follow-up. He is doing much better overall. Has not had any gout flare-ups in over 6 months. Compliant with allopurinol 200 mg daily. Has not used colchicine in more than 6 months. I think at this time, patient's gout has been well controlled. Most recent uric acid level was 5.3 mg/dL. He should stay on allopurinol 200 mg daily Target uric acid level is less than 6 mg/dL. No need for standing doses of colchicine Discussed with patient that at this time his gout is well controlled. Does not need regular rheumatology follow-up. He can follow-up with his PCP. Check uric acid level twice a year. Discussed with patient that the likelihood of having gout flare-ups precipitated by alcohol consumption is less now given lower uric acid burden but long-term alcohol health effects such as liver disease, hypertension,...etc remain and he should cut down on alcohol consumption Follow-up with Rheumatology as needed Plan I spent 20 minutes reviewing patient's chart, evaluating patient, counseling patient and documenting in the chart Coding Level of Care Code Est Pt Level 3 (93282) Diagnoses Idiopathic chronic gout of multiple sites with tophus M1A.09X1 Chronicity: chronic Presence of tophus: with tophus
[2024-03-10 08:22] VITALS: BP 120/80; PULSE 78; RESP 18; O2SAT 98; BMI 26.5
== END 2024-03-10 08:37 | disposition home or self-care (01) ==
PROVIDERS: PCP Family Medicine; Visit Provider Student in an Organized Health Care Education/Training Program
DX: M1A.09X1 Idiopathic chronic gout, multiple sites, with tophus (tophi) (principal)
CPT/HCPCS: 99213

== ENCOUNTER → 2024-03-10 08:07 | Outpatient (BNVA) | payer BC, SELFPAY | PROVIDERS: PCP Family Medicine; Visit Provider Student in an Organized Health Care Education/Training Program ==

== ENCOUNTER 2024-06-07 10:02 | Outpatient (REF) | payer BC, SELFPAY ==
[2024-06-07 11:19] LABS: Appearance Urine Clear; Color Urine Yellow; Glucose Urine UA Negative (Negative); Leukocyte Esterase Urine Negative (Negative); Nitrite Urine Negative (Negative); PH 5.5 (5.0-9.0); Specific Gravity - Urine 1.025 (1.005-1.025); UMIC TRIGGER UA YES; Urine Blood Large (3+) (Negative); Urine Ketones Negative (Negative); Urine Protein 100 (2+) mg/dL (Neg-Trace)
[2024-06-07 11:23] LABS: Bacteria Urine None Seen (None Seen); Hyaline Casts Urine 0-2 /LPF (0-2); Squamous Epithelial Cell Urine 0-2 /HPF (0-2); WBC Urine 0-5 /HPF (0-5)
[2024-06-07 12:17] LABS: Creatinine Urine 183.31 mg/dL
[2024-06-07 12:29] LABS: Microalbum/Creatinine Ratio Ur 306.5 ug/mg cr (<30)
[2024-06-07 12:34] LABS: Alanine Aminotransferase 29 U/L (0-40); Albumin Level 4.1 g/dL (3.5-5.0); Alkaline Phosphatase 55 U/L (39-117); Anion Gap 12 (12-20); Aspartate Amino Transferase 26 U/L (5-37); Bilirubin Total 0.6 mg/dL (0.0-1.0); Blood Urea Nitrogen 21 mg/dL (9-16); Calcium 9.1 mg/dL (8.4-10.2); Carbon Dioxide 28 mmol/L (22-29); Chloride 104 mmol/L (96-108); Cholesterol 291 mg/dL (<200); Estimated Glomerular Filt Rate > 60; Glucose Fasting 107 mg/dL (60-99); HDL Cholesterol 91 mg/dL (>40); LDL Cholesterol Calculated 169 mg/dL (<100); Potassium 4.3 mmol/L (3.3-5.1); Sodium 140 mmol/L (135-145); Total Protein 7.5 g/dL (6.5-8.0); Triglycerides 156 mg/dL (<150)
[2024-06-07 12:35] LABS: Prostate Specific Antigen Scr 4.58 ng/mL (<0.05-4.0); TSH reflex Free T4 1.44 uIU/mL (0.32-4.0)
== END 2024-06-07 10:03 | disposition home or self-care (01) ==
LOC: HO.WFDLDS 10:02
PROVIDERS: Visit Provider Family Medicine
DX: Z00.00 Encounter for general adult medical examination without abnormal findings (principal); M10.9 Gout, unspecified; I10 Essential (primary) hypertension; Z12.5 Encounter for screening for malignant neoplasm of prostate
CPT/HCPCS: 36415; 80053; 80061; 81001; 82043; 82570; 84153; 84443

== ENCOUNTER 2024-06-09 11:28 | Outpatient (AMB) | payer BC, SELFPAY ==
--- NOTE | 2024-06-09 11:33 | MHC.PC.OV ---
Vital Signs 06/09/24 11:38 Height 6 ft Weight 201 lb BMI 27.3 BP 134/84 Blood Pressure Location Lt brachial Position Sitting Respiration 14 Pulse 75 Pulse Source Pulse Oximeter Pulse Oximetry (%) 99 Oxygen Delivery Method Room Air Intake Visit Reasons: CPE Intake Note: Physical Photography Manager Required: No Allergies No Known Allergies Allergy (Verified 06/18/23 12:50) Medication List - Last Reconciled 06/09/24 by Raissa Michael PA-C allopurinol 200 mg (2 x 100 mg) PO DAILY 90 days omeprazole 20 mg PO DAILY Tobacco use date assessed: 02/12/23 Dental Screening Dental Screen Date: 10/31/22 Did you have a dental problem in the last 6 months where you did not have access to dental care?: No Was dental information given to patient?: Patient has dentist HPI CPE HPI Details Patient is a 49-year-old male with a significant past medical history of GERD, impaired fasting glucose, alcohol use, gout presenting today for a physical exam. Normally follows with Dr. Wilburn. He states that this past year he has had a poor diet and has been drinking too much alcohol. 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 He states that he needed a year of decompression so he states that his labs are not very shocking to him. CV: Blood pressure today in the office is 134/84. He has never had a history of hypertension. Last cholesterol came back elevated. Previously it was normal. He does not tolerate statins at all. Endo: Last glucose was elevated at 107. No polyuria or polydipsia. Nephro: He is noted to have ongoing microalbuminuria. Uro: Has ongoing hematuria. No gross hematuria noted. His PSA has increased. Denies any urinary symptoms. GI: Did follow with GI for double endoscopy last year. Advised to continue with PPI given the GERD. He is currently on omeprazole 20 mg. Due for repeat colonoscopy in 2028. Rheum: Seeing rheumatology for gout and polyarthralgia. Colonoscopy: Completed in 2023. Had a polyp, due in 2028 PSA: Up-to-date but elevated [facility] Medical History Spermatocele Hematuria History of snoring Long-term current use of high risk medication other than anticoagulant Idiopathic gout of multiple sites Bilateral knee pain Swelling of foot joint Swelling of joint, ankle, left Swelling of joint of left knee Kidney disease Shingles GERD (gastroesophageal reflux disease) Gout Surgical History Hx of esophagogastroduodenoscopy Hx of colonoscopy H/O arthroscopic knee surgery Family History Father Gout Maternal Grandfather Alcohol abuse Brother Kidney disease Social History Household Members: None Housing: House Alcohol intake: current Patient Tobacco Use Status: Former Tobacco user Cigarette Packs Per Day: 0.5 Years Smoked: 5 e-Cigarette/Vaping Use: Never Used Substance Use Type: Marijuana service: No Current occupational status: employed 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 1. Little interest or pleasure in doing things: not at all 2. Feeling down, depressed, or hopeless: not at all 3. Trouble falling or staying asleep, or sleeping too much: not at all 4. Feeling tired or having little energy: not at all 5. Poor appetite or overeating: not at all 6. Feeling bad about yourself - or that you are a failure or have let yourself or your family down: not at all 7. Trouble concentrating on things, such as reading the newspaper or watching television: not at all 8. Moving or speaking so slowly that other people could have noticed. Or the opposite - being so fidgety or restless that you have been moving around a lot more than usual: not at all 9. Thoughts that you would be better off or of hurting yourself in some way: not at all Total score: 0 Depression Screening Interpretation: Negative Depression Screening Done: Yes 94022 - PHQ-9 Billing: Yes Source: Developed by Drs. Bonifacio Quinn, Kely Saxena, Boston Maier and colleagues, with an educational alyssa from [employer] Thrive Questionnaire Date Thrive assessed: 06/02/24 I am a: Patient What is your living situation today?: I have a steady place to live Within the past 12 months, did the food you bought not last and you didn't have the money to get more?: Never true Within the past 12 months, did you worry whether your food would run out before you got money to buy more?: Never true Do you have trouble paying for medicines?: No Do you have trouble getting transportation to medical appointments?: No Do you have trouble paying your heating and electricity bill?: No Do you have trouble taking care of your child, family member or friend?: No Do you have trouble with day-to-day activities such as bathing, preparing meals, shopping, managing finances, etc.?: No Are you currently unemployed and looking for a job?: No Are you interested in more education?: No Please select the resources that you would like help with: None Currently or been in a relationship where the following occur: I choose not to answer THRIVE Score: 0 AUDIT C Alcohol Use Questionnaire (AUDIT-C) 2. How many drinks containing alcohol do you have on a typical day when you are drinking?: 3 or 4 3. How often do you have six or more drinks on one occasion?: Less than monthly Total Score: 2 Score Reviewed/Action Taken: Yes CHALINO-7 AMB Questionnaire CHALINO-7 Feeling nervous, anxious, or on edge: 0 = Not at all Not being able to stop or control worryin = Not at all Worrying too much about different things: 0 = Not at all Trouble relaxin = Not at all Being so restless that it is hard to sit still: 0 = Not at all Becoming easily annoyed or irritable: 0 = Not at all Feeling afraid as if something awful might happen: 0 = Not at all Total CHALINO-7 score (0-4 normal; 5-9 mild; 10-14 moderate; 15-21 severe): 0 Source: Developed by Drs. Bonifacio Quinn, Kely Saxena, Boston Maier and colleagues, with an educational alyssa from [employer] CHALINO-7 Assessment Billing CHALINO-7 Assessment Tool: CHALINO-7 Assessment 46172 Physical exam (Primary Care) Tobacco/Smoking Status: Tobacco use Status Tobacco use date assessed 02/12/23 02/12/23 11:47 Patient Tobacco Use Status Former Tobacco user 04/30/23 10:19 e-Cigarette/Vaping Use Never Used 02/12/23 11:47 Depression Screening Interpretation: Negative Thrive Assessment: Date of Thrive Assessment Date Thrive assessed 06/02/24 06/02/24 14:07 Currently or been in a relationship where the following occur: I choose not to answer Results Reviewed Results Reviewed: Laboratory Tests 10/22/22 04/15/23 06/07/24 07:20 10:52 10:03 Sodium 140 Potassium 4.3 Chloride 104 Carbon Dioxide 28 Anion Gap 12 BUN 21 H Creatinine 0.75 Estimated GFR > 60 Fasting Glucose 107 H Uric Acid 5.3 Calcium 9.1 Total Bilirubin 0.6 AST 26 ALT 29 Alkaline Phosphatase 55 Total Protein 7.5 Albumin 4.1 Triglycerides 82 156 H Cholesterol 237 291 H LDL Cholesterol, Calc 124 169 H HDL Cholesterol 97 91 PSA Screen 3.36 4.58 H TSH 1.44 Urine Creatinine Urine Microalbumin Microalb/Creat Ratio 06/07/24 10:10 Sodium Potassium Chloride Carbon Dioxide Anion Gap BUN Creatinine Estimated GFR Fasting Glucose Uric Acid Calcium Total Bilirubin AST ALT Alkaline Phosphatase Total Protein Albumin Triglycerides Cholesterol LDL Cholesterol, Calc HDL Cholesterol PSA Screen TSH Urine Creatinine 183.31 Urine Microalbumin 562.0 Microalb/Creat Ratio 306.5 H Coding Level of Care Code Est Pt Prev Care 40-64y(13198) Diagnoses Routine general medical examination at a health care facility Z00.00 Proteinuria R80.9 Elevated fasting glucose R73.01 Elevated PSA R97.20 Dyslipidemia E78.5 Additional Codes PHQ-9 - 28607 - PHQ-9 Billing: Yes ([id number]) CHALINO-7 Assessment Billing - CHALINO-7 Assessment Tool: CHALINO-7 Assessment 36461 ([id number]) Assessment & Plan Assessment & Plan (1) Routine general medical examination at a health care facility: Code(s): Z00.00 - Encounter for general adult medical examination without abnormal findings Plan: Health maintenance and recent labs reviewed. (2) Proteinuria: Code(s): R80.9 - Proteinuria, unspecified Category: Medical Plan: Referral to nephrology (3) Elevated fasting glucose: Code(s): R73.01 - Impaired fasting glucose Category: Medical Plan: A1c ordered (4) Elevated PSA: Code(s): R97.20 - Elevated prostate specific antigen [PSA] Category: Medical Plan: Referral to urology (5) Dyslipidemia: Code(s): E78.5 - Hyperlipidemia, unspecified Category: Medical Plan: Lifestyle modifications discussed. Orders: Orders Lipid Panel 3 Months E78.5 - Hyperlipidemia, unspecified Hemoglobin A1c Today R73.01 - Impaired fasting glucose Referrals Nephrology Referral R80.9 - Proteinuria, unspecified Urology Referral R31.9 - Hematuria, unspecified, R97.20 - Elevated prostate specific antigen [PSA]
[2024-06-09 11:38] VITALS: BP 134/84; PULSE 75; RESP 14; O2SAT 99; BMI 27.3
== END 2024-06-09 17:00 | disposition home or self-care (01) ==
PROVIDERS: PCP Family Medicine; Visit Provider Physician Assistant
DX: Z00.00 Encounter for general adult medical examination without abnormal findings (principal); R80.9 Proteinuria, unspecified; R73.01 Impaired fasting glucose; R97.20 Elevated prostate specific antigen [PSA]; E78.5 Hyperlipidemia, unspecified

== ENCOUNTER → 2024-06-09 11:28 | Outpatient (BNVA) | payer BC, SELFPAY | PROVIDERS: PCP Family Medicine; Visit Provider Physician Assistant | DX: Z00.00 Encounter for general adult medical examination without abnormal findings (principal); R80.9 Proteinuria, unspecified; R73.01 Impaired fasting glucose; R97.20 Elevated prostate specific antigen [PSA]; E78.5 Hyperlipidemia, unspecified | CPT/HCPCS: 96127 ==

== ENCOUNTER 2024-06-20 11:55 | Outpatient (AMB) | payer BC, SELFPAY ==
[2024-06-20 11:56] VITALS: BP 130/62; PULSE 94; O2SAT 99; BMI 26.7
--- NOTE | 2024-06-20 11:56 | HO.NEPHOV ---
Vital Signs 06/20/24 11:56 Height 6 ft Weight 197 lb BMI 26.7 BP 130/62 Blood Pressure Location Lt brachial Position Sitting Pulse 94 Pulse Source Pulse Oximeter Pulse Oximetry (%) 99 Oxygen Delivery Method Room Air Intake Visit Reasons: INP: Proteinuria/ Conf Data Developer Required: No Accompanied by: Self / Same As Patient Allergies No Known Allergies Allergy (Verified 06/20/24 11:58) Medication List - Last Reconciled 06/20/24 by Jayson Mandujano MD allopurinol 200 mg (2 x 100 mg) PO DAILY 90 days colchicine 0.6 mg PO DAILY PRN omeprazole 20 mg PO DAILY HPI Comments Details: Carmelo is a pleasant 49-year-old man with a history of microscopic hematuria for several years. He was seen by Dr. Massey several years ago. He underwent basic workup and both thought to have benign hematuria. Recently he was found to have proteinuria with a urine microalbumin creatinine ratio of 306 and hence this referral. Serum creatinine has been stable around 0.7 mg/dL. He has had no gross hematuria. No rash. No hemoptysis. No edema. History of gout. He had gout of both ankles and both knees. He is currently on allopurinol. Occasionally takes colchicine during acute attacks. Does not take any NSAIDs. History of spermatocele. Status post surgery in January 2023. He is . Lives alone. Both daughters are in college. He chews tobacco every day. Does not smoke cigarettes. Consumes alcohol almost every day. 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 [facility] Medical History Spermatocele Hematuria History of snoring Long-term current use of high risk medication other than anticoagulant Idiopathic gout of multiple sites Bilateral knee pain Swelling of foot joint Swelling of joint, ankle, left Swelling of joint of left knee Kidney disease Shingles GERD (gastroesophageal reflux disease) Gout Surgical History Hx of esophagogastroduodenoscopy Hx of colonoscopy H/O arthroscopic knee surgery Family History Father Gout Maternal Grandfather Alcohol abuse Brother Kidney disease Social History Household Members: None Housing: House Alcohol intake: current Patient Tobacco Use Status: Former Tobacco user Cigarette Packs Per Day: 0.5 Years Smoked: 5 e-Cigarette/Vaping Use: Never Used Substance Use Type: Marijuana service: No Current occupational status: employed 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 Cognitive needs: No Hearing needs: No Vision needs: No Review of Systems Const Denies fever(s) and Denies weight loss Card Denies chest pain Resp Denies cough and Denies hemoptysis GI Denies abdominal pain, Denies diarrhea and Denies nausea Musc Denies back pain Neuro Denies focal weakness Physical Exam Vital Signs: Last Vital Signs Pulse 94 06/20/24 11:56 BP 130/62 06/20/24 11:56 Pulse Ox 99 06/20/24 11:56 Oxygen Delivery Method Room Air 06/20/24 11:56 BMI result Body Mass Index 26.7 Const General: comfortable; No acute distress Orientation/consciousness: patient oriented x3 Eyes General: appearance normal, both eyes and all related structures Visual Wise: normal visual wise by confrontation Neck Neck: Yes supple and Yes no JVD Resp Effort & Inspection: normal respiratory effort and respiratory effort not decreased Cardio Palpation: no palpable S3 and no palpable S4 Heart sounds: no rubs GI Inspection: Yes normal to inspection Palpation (GI): Soft to palpation Percussion: Yes normal to percussion Auscultation: normal bowel sounds General: Yes no CVA tenderness Back/Spine/Pelvis Back: no CVA tenderness Skin General skin exam: no petechiae and no purpura Neuro General: patient oriented x3 and no focal motor deficits Extrem General: No clubbing and No edema Results Reviewed Nephrology Results: Sodium 140 mmol/L (135-145) 06/07/24 Potassium 4.3 mmol/L (3.3-5.1) 06/07/24 Chloride 104 mmol/L (96-108) 06/07/24 Carbon Dioxide 28 mmol/L (22-29) 06/07/24 BUN 21 mg/dL (9-16) H 06/07/24 Creatinine 0.75 mg/dL (0.5-1.4) 06/07/24 Calcium 9.1 mg/dL (8.4-10.2) 06/07/24 Urine Protein 100 (2+) mg/dL (Neg-Trace) H 06/07/24 Urine Creatinine 183.31 mg/dL 06/07/24 Assessment & Plan Assessment & Plan (1) Hematuria: Code(s): R31.9 - Hematuria, unspecified Category: Medical Plan 49-year-old man with microscopic hematuria He had normal renal function found to have minimal proteinuria. Differential diagnosis would include renal versus non renal causes. He is scheduled to see urologist in 6 weeks. I will evaluate him for possible renal causes. Basic serologies and urinalysis has been ordered including urine culture and a repeat urine protein creatinine ratio. Obtain renal ultrasonogram. Further workup will be based on the serological workup and urology call workup. Based on these we will decide if he needs a kidney biopsy. Encouraged him to stay on low-sodium diet. Increase p.o. fluid intake. Stay on low purine diet as well. Orders: Orders Creatinine Urine Today R31.9 - Hematuria, unspecified JONO Reflex Titer and Pattern Today R31.9 - Hematuria, unspecified Neutrophil Cytoplasma Ab Today R31.9 - Hematuria, unspecified Myeloperoxidase Antibody Today R31.9 - Hematuria, unspecified Proteinase 3 PR3 Antibodies Today R31.9 - Hematuria, unspecified Anti Glomerular Basement Memb Today R31.9 - Hematuria, unspecified Complement C4 Today R31.9 - Hematuria, unspecified UA and rflx microscopic Today R31.9 - Hematuria, unspecified Total Protein Urine Random Today R31.9 - Hematuria, unspecified Uric Acid Today R31.9 - Hematuria, unspecified Complement C3 Today R31.9 - Hematuria, unspecified Protein Electrophoresis, Serum Today R31.9 - Hematuria, unspecified Urine Cytology Today R31.9 - Hematuria, unspecified Urine Culture Today R31.9 - Hematuria, unspecified US renal BI Today I10 - Essential (primary) hypertension, R31.9 - Hematuria, unspecified Coding Level of Care Code New Pt Level 5 (99303) Diagnoses Hematuria R31.9
== END 2024-06-20 12:24 | disposition home or self-care (01) ==
LOC: HO.HKA 11:56
PROVIDERS: PCP Family Medicine; Referring Provider Physician Assistant; Visit Provider Internal Medicine Hypertension Specialist
DX: R31.9 Hematuria, unspecified (principal)
CPT/HCPCS: 99203

== ENCOUNTER 2024-06-21 11:14 | Outpatient (REF) | payer BC, SELFPAY ==
[2024-06-21 14:42] LABS: Estimated Average Glucose 100 mg/dL; Hemoglobin A1C 129.4829 umol/L; Hemoglobin A1c % 5.1 % (<6.0)
[2024-06-21 15:05] LABS: Urine Cytology See Pathology rpt
[2024-06-21 15:18] LABS: Appearance Urine Clear; Color Urine Yellow; Glucose Urine UA Negative (Negative); Leukocyte Esterase Urine Negative (Negative); Nitrite Urine Negative (Negative); Specific Gravity - Urine <= 1.005 (1.005-1.025); UMIC TRIGGER UA YES; Urine Blood Moderate (2+) (Negative); Urine Ketones Negative (Negative); Urine Protein Negative (Neg-Trace)
[2024-06-21 15:27] LABS: Bacteria Urine None Seen (None Seen); Hyaline Casts Urine 0-2 /LPF (0-2); Squamous Epithelial Cell Urine 0-2 /HPF (0-2); WBC Urine 0-5 /HPF (0-5)
[2024-06-21 15:46] LABS: Creatinine Urine 27.96 mg/dL; Total Protein Urine Random 12 mg/dL (<12); Uric Acid 4.3 mg/dL (3.4-7.0)
[2024-06-22 15:33] LABS: Complement C3 130 mg/dL (82-185)
[2024-06-22 22:48] LABS: Prot Elec - Albumin 4.5 g/dL (3.8-4.8); Prot Elec - Alpha1 0.2 g/dL (0.2-0.3); Prot Elec - Alpha2 0.6 g/dL (0.5-0.9); Prot Elec - Beta 1 0.5 g/dL (0.4-0.6); Prot Elec - Beta 2 0.4 g/dL (0.2-0.5); Prot Elec - Gamma 0.9 g/dL (0.8-1.7)
[2024-06-23 10:22] LABS: Anti Glomerular Basement Memb <1.0 AI; Myeloperoxidase Antibody <1.0 AI; Proteinase 3 PR3 Antibodies <1.0 AI
[2024-06-23 12:27] LABS: Anti Nuclear Antibody Screen NEGATIVE (NEGATIVE)
[2024-06-24 12:54] LABS: Neutrophil Cyto Ab Screen NEGATIVE (NEGATIVE)
== END 2024-06-21 11:15 | disposition home or self-care (01) ==
LOC: HO.WFDLDS 11:14
PROVIDERS: Family Medicine; Referring Provider Physician Assistant; Visit Provider Internal Medicine Hypertension Specialist
DX: R73.01 Impaired fasting glucose (principal); R31.9 Hematuria, unspecified
CPT/HCPCS: 36415; 81001; 82570; 83036; 83520; 84156; 84165; 84550; 86021; 86036; 86038; 86160; 87086; 88112

== ENCOUNTER 2024-07-18 12:20 | Outpatient (REF) | payer BC, SELFPAY ==
--- NOTE | ~2024-07-18 | US_ITS ---
EXAMINATION: US RETROPERITONEAL LIMITED (RENAL ONLY) CLINICAL INFORMATION: Hematuria, hypertension.. COMPARISON: None available. TECHNIQUE: Real-time imaging of the kidneys. FINDINGS: RIGHT KIDNEY: 12.6 x 5.5 x 6.8 cm (SAG x AP x TRV). The kidney is normal in size, contour, and echogenicity. Renal cortical thickness is normal. No calculi or suspicious focal parenchymal lesions. No hydronephrosis. Upper pole simple cyst measuring 1.9 x 1.5 x 1.5 cm. Additional upper pole simple cyst measuring 1.9 x 2.2 x 1.7 cm. LEFT KIDNEY: 12.5 x 6.4 x 5.6 cm (SAG x AP x TRV). The kidney is normal in size, contour, and echogenicity. Renal cortical thickness is normal. No calculi or focal parenchymal lesions. No hydronephrosis. US/US renal BI IMPRESSION: 1. There are 2 simple upper pole cortical cysts in the right kidney. 2. Otherwise normal renal ultrasound. Electronically signed by: Eduardo Engel MD 07/18/2024 12:51 PM EDT
== END 2024-07-18 12:21 | disposition home or self-care (01) ==
LOC: HO.US 12:20
PROVIDERS: PCP Family Medicine; Visit Provider Internal Medicine Hypertension Specialist
DX: I10 Essential (primary) hypertension (principal); R31.9 Hematuria, unspecified
CPT/HCPCS: 76775

== ENCOUNTER → 2024-07-18 12:22 | Outpatient (BNV) | payer BC, SELFPAY | PROVIDERS: PCP Family Medicine; Visit Provider Radiology Diagnostic Radiology | DX: N28.1 Cyst of kidney, acquired (principal) | CPT/HCPCS: 76775 ==

== ENCOUNTER 2024-08-10 12:56 | Outpatient (AMB) | payer BC, SELFPAY ==
--- NOTE | 2024-08-10 13:01 | MHC.OFFVIS ---
Intake Visit Reasons: hematuria/elevated PSA Intake Note: Patient is present for HEMATURIA/ELEVATED PSA Urology Medication:ALLOPURINOL Antibiotic Allergy:NONE Blood Thinner:NONE Crankshaft Straightener Required: No Allergies No Known Allergies Allergy (Verified 08/10/24 13:02) HPI Comments Details: Carmelo is a pleasant male. He is a patient Dr. Wilburn. He is seen for the following urologic conditions - epididymal cyst - elevated PSA UA today 3+ blood, 2+ protein Recommend three-month follow-up repeat PSA plus bladder ultrasound Seeing Nephrology regarding microscopic hematuria Renal ultrasound cysts right side no evident stones Referral for elevated PSA PSA - 10/26 3.4, 06/28 4.3 PFSH Medical History Spermatocele Hematuria History of snoring Long-term current use of high risk medication other than anticoagulant Idiopathic gout of multiple sites Bilateral knee pain Swelling of foot joint Swelling of joint, ankle, left Swelling of joint of left knee Kidney disease Shingles GERD (gastroesophageal reflux disease) Gout Surgical History Hx of esophagogastroduodenoscopy Hx of colonoscopy H/O arthroscopic knee surgery Family History Father Gout Maternal Grandfather Alcohol abuse Brother Kidney disease Social History Household Members: None Housing: House Alcohol intake: current Patient Tobacco Use Status: Former Tobacco user Cigarette Packs Per Day: 0.5 Years Smoked: 5 e-Cigarette/Vaping Use: Never Used Substance Use Type: Marijuana service: No Current occupational status: employed 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 Cognitive needs: No Hearing needs: No Vision needs: No Review of Systems Const Denies chills and Denies fever(s) Card Reports no additional complaints and Denies syncope Resp Denies cough GI Denies abdominal pain and Denies heartburn Reports as per HPI and Denies change in libido Neuro Denies syncope Psych Denies change in libido Endo Denies change in libido Physical Exam Const General: cooperative, healthy appearing, comfortable and no acute distress Orientation/consciousness: patient oriented x3 HEENT Face and sinus: Yes normal facial exam Mouth: moist mucous membranes Neck Neck: Yes normal visual inspection, Yes full ROM and Yes trachea midline Chest Chest palpation & inspection: normal inspection of the chest Resp Effort & Inspection: normal respiratory effort, able to speak in complete sentences and no respiratory distress GI Inspection: Yes normal to inspection Back/Spine/Pelvis Cervical Spine: normal cervical lordosis Thoracic/Lumbar Spine: thoracic and lumbar spine normal to inspection Skin General skin exam: no rashes or lesions noted Neuro General: patient oriented x3, gait normal, tone normal and moves all extremities Extrem General: Yes normal to inspection and Yes capillary refill normal Results AMB Urinalysis, Automated UA Leukoctes 0 Owen/uL Last Edit by [facility] CCM on 08/10/24 13:11 UA Nitrite Negative Last Edit by [facility] CCM on 08/10/24 13:11 UA Urobilinogen 0.2 mg/dL Last Edit by [facility] CCM on 08/10/24 13:11 UA Protein 100 mg/dL Last Edit by [facility] CCM on 08/10/24 13:11 UA pH 5.5 Last Edit by [facility] CCM on 08/10/24 13:11 UA Blood 200 Martin/uL Last Edit by [facility] CCM on 08/10/24 13:11 UA Specific [place] 1.020 Last Edit by [facility] CCM on 08/10/24 13:11 UA Ketone Negative Last Edit by [facility] CCM on 08/10/24 13:11 UA Bilirubin 0 mg/dL Last Edit by [facility] CCM on 08/10/24 13:11 UA Glucose 0 mg/dL Last Edit by Cir[facility] on 08/10/24 13:11 Results Reviewed Results Reviewed: Laboratory Last Values Urine pH (Auto) 5.5 08/10/24 13:10 Specific [place] (Auto) 1.020 08/10/24 13:10 Urine Protein (Auto) 100 mg/dL 08/10/24 13:10 Glucose (UA)(Auto) 0 mg/dL 08/10/24 13:10 Urine Ketones (Auto) Negative 08/10/24 13:10 Urine Blood (Auto) 200 Martin/uL 08/10/24 13:10 Urine Nitrite (Auto) Negative 08/10/24 13:10 Urine Bilirubin (Auto) 0 mg/dL 08/10/24 13:10 Urine Urobilinogen (Auto) 0.2 mg/dL 08/10/24 13:10 Leukocyte Esterase (Auto) 0 Owen/uL 08/10/24 13:10 Assessment & Plan Assessment & Plan (1) Hematuria: Code(s): R31.9 - Hematuria, unspecified Category: Medical (2) Elevated PSA: Code(s): R97.20 - Elevated prostate specific antigen [PSA] Category: Medical Plan Three-month follow-up repeat PSA and bladder ultrasound Orders: Orders AMB Urinalysis Automated Today Z13.9 - Encounter for screening, unspecified US bladder 3 Months R97.20 - Elevated prostate specific antigen [PSA] Urine Cytology Today R31.9 - Hematuria, unspecified Prostate Specific Antigen 3 Months R97.20 - Elevated prostate specific antigen [PSA] Patient Instructions: This note is constructed using voice recognition software. While every effort has been made to ensure accuracy wood shingle roofer errors may have been included. Imaging studies, laboratory and physical exam results were discussed and reviewed in detail. No major barriers to patient understanding were identified. An opportunity to ask questions regarding the treatment plan was provided. All questions were answered. The patient expressed understanding and agreement with the above treatment plan. The patient is aware they should contact our office by phone for worsening of their current condition or the appearance of new urologic symptoms. Compliance is encouraged with any medications and followup testing that is ordered. It is a privilege to participate in the urologic care of your patient. If you have any questions or concerns regarding treatment for the above conditions, or other urologic issues, please do not hesitate to contact me. The office telephone contact is [phone]. Sincerely, Dr Chaitanya Verdugo MD, [place] [facility] - Urology Compassionate Specialist Care for the Genitourinary System Coding Level of Care Code New Pt Level 3 (07800) Diagnoses Hematuria R31.9 Elevated PSA R97.20
== END 2024-08-10 13:39 | disposition home or self-care (01) ==
LOC: HO.HUSH 12:57
PROVIDERS: PCP Family Medicine; Visit Provider Urology
DX: R31.9 Hematuria, unspecified (principal); R97.20 Elevated prostate specific antigen [PSA]; Z13.9 Encounter for screening, unspecified
CPT/HCPCS: 99213

== ENCOUNTER 2024-08-10 12:56 | Outpatient (REF) | payer BC, SELFPAY ==
[2024-08-10 16:44] LABS: Urine Cytology See Pathology rpt
== END 2024-08-10 12:57 | disposition home or self-care (01) ==
LOC: HO.LAB 12:56
PROVIDERS: PCP Family Medicine; Visit Provider Urology
DX: R31.9 Hematuria, unspecified (principal)
CPT/HCPCS: 81003; 88112

== ENCOUNTER 2024-08-15 12:02 | Outpatient (AMB) | payer BC, SELFPAY ==
[2024-08-15 12:07] VITALS: BP 128/76; PULSE 77; O2SAT 99; BMI 26.2
--- NOTE | 2024-08-15 12:07 | HO.NEPHOV ---
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 He was seen by Dr. Massey several years ago. He underwent basic workup and both thought to have benign hematuria. Recently he was found to have proteinuria with a urine microalbumin creatinine ratio of 306 and hence this referral. Serum creatinine has been stable around 0.7 mg/dL. He has had no gross hematuria. No rash. No hemoptysis. No edema. History of gout. He had gout of both ankles and both knees. He is currently on allopurinol. Occasionally takes colchicine during acute attacks. Does not take any NSAIDs. History of spermatocele. Status post surgery in January 2023. He is . Lives alone. Both daughters are in college. He chews tobacco every day. Does not smoke cigarettes. Consumes alcohol almost every day. 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 Seen by Urology. Urology workup in progress. Renal ultrasonogram was normal except for to simple cyst PFSH Medical History Spermatocele Hematuria History of snoring Long-term current use of high risk medication other than anticoagulant Idiopathic gout of multiple sites Bilateral knee pain Swelling of foot joint Swelling of joint, ankle, left Swelling of joint of left knee Kidney disease Shingles GERD (gastroesophageal reflux disease) Gout Surgical History Hx of esophagogastroduodenoscopy Hx of colonoscopy H/O arthroscopic knee surgery Family History Father Gout Maternal Grandfather Alcohol abuse Brother Kidney disease Social History Household Members: None Housing: House Alcohol intake: current Patient Tobacco Use Status: Former Tobacco user Cigarette Packs Per Day: 0.5 Years Smoked: 5 e-Cigarette/Vaping Use: Never Used Substance Use Type: Marijuana service: No Current occupational status: employed 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 Lungs entry equal no rales. Heart S1-S2 heard no gallop or rub. Abdomen soft nontender. Neuro alert awake oriented. No asterixis. Extremities no edema. Const General: comfortable; No acute distress Orientation/consciousness: patient oriented x3 Eyes General: appearance normal, both eyes and all related structures Visual Wise: normal visual wise by confrontation Neck Neck: Yes supple and Yes no JVD Resp Effort & Inspection: normal respiratory effort and respiratory effort not decreased Cardio Palpation: no palpable S3 and no palpable S4 Heart sounds: no rubs GI Inspection: Yes normal to inspection Palpation (GI): Soft to palpation Percussion: Yes normal to percussion Auscultation: normal bowel sounds General: Yes no CVA tenderness Back/Spine/Pelvis Back: no CVA tenderness Skin General skin exam: no petechiae and no purpura Neuro General: patient oriented x3 and no focal motor deficits Extrem General: No clubbing and No edema Results Reviewed Results Reviewed: RIGHT KIDNEY: 12.6 x 5.5 x 6.8 cm (SAG x AP x TRV). The kidney is normal in size, contour, and echogenicity. Renal cortical thickness is normal. No calculi or suspicious focal parenchymal lesions. No hydronephrosis. Upper pole simple cyst measuring 1.9 x 1.5 x 1.5 cm. Additional upper pole simple cyst measuring 1.9 x 2.2 x 1.7 cm. LEFT KIDNEY: 12.5 x 6.4 x 5.6 cm (SAG x AP x TRV). The kidney is normal in size, contour, and echogenicity. Renal cortical thickness is normal. No calculi or focal parenchymal lesions. No hydronephrosis. Nephrology Results: Sodium 140 mmol/L (135-145) 06/07/24 Potassium 4.3 mmol/L (3.3-5.1) 06/07/24 Chloride 104 mmol/L (96-108) 06/07/24 Carbon Dioxide 28 mmol/L (22-29) 06/07/24 BUN 21 mg/dL (9-16) H 06/07/24 Creatinine 0.75 mg/dL (0.5-1.4) 06/07/24 Calcium 9.1 mg/dL (8.4-10.2) 06/07/24 Urine Protein Negative mg/dL (Neg-Trace) 06/21/24 Urine Creatinine 27.96 mg/dL 06/21/24 Renal US 07/18/24 Assessment & Plan Assessment & Plan (1) Hematuria: Code(s): R31.9 - Hematuria, unspecified Category: Medical Plan 49-year-old man with microscopic hematuria He had normal renal function found to have minimal proteinuria. Underwent extensive serological workup which was essentially negative. 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 No significant proteinuria at this time. Renal function stable. No absolute indication for biopsy at this time. I will continue to monitor his renal function and urine protein excretion along with urinalysis periodically. Currently being evaluated by Urology to rule out urologic causes. Orders: Orders UA and rflx microscopic 1 Year R31.9 - Hematuria, unspecified Creatinine Urine 1 Year R31.9 - Hematuria, unspecified Uric Acid 1 Year R31.9 - Hematuria, unspecified Basic Metabolic Panel 1 Year R31.9 - Hematuria, unspecified Total Protein Urine Random 1 Year R31.9 - Hematuria, unspecified Coding Level of Care Code Est Pt Level 3 (97969) Diagnoses Hematuria R31.9
== END 2024-08-15 12:24 | disposition home or self-care (01) ==
LOC: HO.HKA 12:03
PROVIDERS: PCP Family Medicine; Visit Provider Internal Medicine Hypertension Specialist
DX: R31.9 Hematuria, unspecified (principal)
CPT/HCPCS: 99213

== ENCOUNTER → 2024-08-15 12:02 | Outpatient (BNVA) | payer BC, SELFPAY | PROVIDERS: PCP Family Medicine; Visit Provider Internal Medicine Hypertension Specialist ==

== ENCOUNTER 2024-09-12 10:48 | Outpatient (REF) | payer BC, SELFPAY ==
[2024-09-12 14:44] LABS: Cholesterol 246 mg/dL (<200); HDL Cholesterol 76 mg/dL (>40); Triglycerides 428 mg/dL (<150)
== END 2024-09-12 10:49 | disposition home or self-care (01) ==
LOC: HO.WFDLDS 10:48
PROVIDERS: Visit Provider Physician Assistant
DX: E78.5 Hyperlipidemia, unspecified (principal)
CPT/HCPCS: 36415; 80061

== ENCOUNTER 2024-09-13 10:47 | Outpatient (AMB) | payer BC, SELFPAY ==
--- NOTE | 2024-09-13 10:56 | MHC.PC.OV ---
Vital Signs 09/13/24 10:58 Height 6 ft Weight 197 lb 2 oz BMI 26.7 BP 136/68 Blood Pressure Location Lt brachial Position Sitting Respiration 12 Pulse 93 Pulse Source Pulse Oximeter Temp 97.9 F Temp Source Oral Pulse Oximetry (%) 98 Oxygen Delivery Method Room Air Intake Visit Reasons: bp and lipids with PCP Intake Note: patient is scheduled for b/p and lab review Water Chaser Required: No Allergies No Known Allergies Allergy (Verified 09/13/24 10:57) Medication List - Last Reconciled 09/13/24 by Victorino Wilburn MD allopurinol 200 mg (2 x 100 mg) PO DAILY 90 days colchicine 0.6 mg PO DAILY PRN omeprazole 20 mg PO DAILY Tobacco use date assessed: 02/12/23 Dental Screening Dental Screen Date: 10/31/22 HPI bp and lipids with PCP HPI Details 49 y/o male presents to f/u BP, lipids. Lipid panel drawn 09/12/24. Reviewed labs with pt. Triglycerides 428. TC 246. LDL TNP. HDL 76. Pt notes he continues drinking EtOH. Blood pressure today 136/68, 93p. PFSH Medical History Spermatocele Hematuria History of snoring Long-term current use of high risk medication other than anticoagulant Idiopathic gout of multiple sites Bilateral knee pain Swelling of foot joint Swelling of joint, ankle, left Swelling of joint of left knee Kidney disease Shingles GERD (gastroesophageal reflux disease) Gout Surgical History Hx of esophagogastroduodenoscopy Hx of colonoscopy H/O arthroscopic knee surgery Family History Father Gout Maternal Grandfather Alcohol abuse Brother Kidney disease Social History Household Members: None Housing: House Alcohol intake: current Patient Tobacco Use Status: Former Tobacco user Cigarette Packs Per Day: 0.5 Years Smoked: 5 e-Cigarette/Vaping Use: Never Used Substance Use Type: Marijuana service: No Current occupational status: employed 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 Cognitive needs: No Hearing needs: No Vision needs: No Questionnaire Thrive Questionnaire Date Thrive assessed: 06/02/24 I am a: Patient What is your living situation today?: I have a steady place to live Within the past 12 months, did the food you bought not last and you didn't have the money to get more?: Never true Within the past 12 months, did you worry whether your food would run out before you got money to buy more?: Never true Do you have trouble paying for medicines?: No Do you have trouble getting transportation to medical appointments?: No Do you have trouble paying your heating and electricity bill?: No Do you have trouble taking care of your child, family member or friend?: No Do you have trouble with day-to-day activities such as bathing, preparing meals, shopping, managing finances, etc.?: No Are you currently unemployed and looking for a job?: No Are you interested in more education?: No Please select the resources that you would like help with: None Currently or been in a relationship where the following occur: I choose not to answer THRIVE Score: 0 Review of Systems Const Denies chills, Denies fatigue, Denies fever(s), Denies headache(s) and Denies weakness ENT Denies dizziness and Denies headache(s) Card Denies chest pain, Denies lightheadedness, Denies dyspnea and Denies other (Palpitations) Resp Denies cough, Denies dyspnea, Denies wheezing and Denies other ( shortness of breath) Musc Denies numbness and Denies tingling Neuro Denies dizziness, Denies headache(s), Denies numbness, Denies tingling, Denies paresthesias and Denies weakness Psych Denies anxiety and Denies depression Endo Denies fatigue Aller/Immun Denies wheezing Physical exam (Primary Care) Vital Signs: Last Vital Signs Temp 97.9 F 09/13/24 10:58 Pulse 93 09/13/24 10:58 Resp 12 09/13/24 10:58 BP 136/68 09/13/24 10:58 Pulse Ox 98 09/13/24 10:58 Oxygen Delivery Method Room Air 09/13/24 10:58 BMI result Body Mass Index 26.7 Tobacco/Smoking Status: Tobacco use Status Tobacco use date assessed 02/12/23 09/13/24 11:00 Patient Tobacco Use Status Former Tobacco user 09/13/24 11:00 e-Cigarette/Vaping Use Never Used 09/13/24 11:00 Thrive Assessment: Date of Thrive Assessment Date Thrive assessed 06/02/24 09/13/24 11:00 Currently or been in a relationship where the following occur: I choose not to answer Const General: no acute distress and well developed Nutritional Appearance: well nourished Orientation/consciousness: patient oriented x3 HENMT Head: Yes normocephalic and Yes atraumatic Eyes General: appearance normal, both eyes and all related structures Pupils: Equal, round and reactive pupils present EOM: EOMs intact bilaterally Resp Effort & Inspection: normal respiratory effort Auscultation: clear to auscultation bilaterally Cardio Rate: regular rate Rhythm: regular rhythm Heart sounds: S1 normal heart sound present, S2 normal heart sound present, no gallops, no murmurs and no rubs Neuro General: patient oriented x3 and gait normal Cranial nerves: Yes Equal, round and reactive pupils present Psych Affect: normal affect Coding Level of Care Code Est Pt Level 3 (15956) Diagnoses Mixed hyperlipidemia E78.2 Alcohol use disorder F10.90 Assessment & Plan Assessment & Plan (1) Mixed hyperlipidemia: Code(s): E78.2 - Mixed hyperlipidemia Category: Medical Plan: Mixed?hyperlipidemia?with?very?high?triglyceride?levels Patient?notes?he?has?been?drinking?a?lot Encouraged?weaning?down?towards?cessation Will?start?him?on?some?fenofibrate Encouraged?a?diet?lower?in?saturated?fats?and?cholesterol Will?recheck?lipid?levels?in?4-6?weeks (2) Alcohol use disorder: Code(s): F10.90 - Alcohol use, unspecified, uncomplicated Category: Medical Plan: Advised?weaning?down?alcohol Patient?agrees Medications: New fenofibrate 160 mg PO DAILY 30 days 30 tabs 3RF
[2024-09-13 10:58] VITALS: BP 136/68; PULSE 93; RESP 12; TEMP 36.6; O2SAT 98; BMI 26.7
== END 2024-09-13 11:18 | disposition home or self-care (01) ==
LOC: HO.HMCFM 10:48
PROVIDERS: PCP Family Medicine; Visit Provider Family Medicine
DX: E78.2 Mixed hyperlipidemia (principal); F10.90 Alcohol use, unspecified, uncomplicated

== ENCOUNTER → 2024-09-13 10:47 | Outpatient (BNVA) | payer BC, SELFPAY | PROVIDERS: PCP Family Medicine; Visit Provider Family Medicine | DX: Z13.89 Encounter for screening for other disorder (principal) ==

== ENCOUNTER 2024-10-18 15:22 | Outpatient (REF) | payer BC, SELFPAY ==
[2024-10-18 18:16] LABS: Alanine Aminotransferase 33 U/L (0-40); Albumin Level 3.9 g/dL (3.5-5.0); Alkaline Phosphatase 58 U/L (39-117); Anion Gap 14 (12-20); Aspartate Amino Transferase 46 U/L (5-37); Blood Urea Nitrogen 15 mg/dL (9-16); Calcium 8.9 mg/dL (8.4-10.2); Carbon Dioxide 25 mmol/L (22-29); Chloride 104 mmol/L (96-108); Cholesterol 210 mg/dL (<200); Estimated Glomerular Filt Rate > 60; HDL Cholesterol 81 mg/dL (>40); Potassium 3.9 mmol/L (3.3-5.1); Sodium 139 mmol/L (135-145); Total Protein 6.5 g/dL (6.5-8.0); Triglycerides 113 mg/dL (<150)
== END 2024-10-18 15:23 | disposition home or self-care (01) ==
LOC: HO.WFDLDS 15:22
PROVIDERS: Visit Provider Family Medicine
DX: Z00.00 Encounter for general adult medical examination without abnormal findings (principal); R31.9 Hematuria, unspecified; M10.9 Gout, unspecified
CPT/HCPCS: 36415; 80053; 80061

== ENCOUNTER 2024-10-19 10:25 | Outpatient (AMB) | payer BC, SELFPAY ==
--- NOTE | 2024-10-19 10:44 | A.OFFPC_ITS ---
Vital Signs 10/19/24 10:46 Height 6 ft Weight 192 lb BMI 26.0 BP 110/66 Blood Pressure Location Lt brachial Position Sitting Respiration 12 Pulse 78 Pulse Source Pulse Oximeter Temp 97.7 F Temp Source Oral Pulse Oximetry (%) 96 Oxygen Delivery Method Room Air Intake Visit Reasons: f/u lipids Intake Note: patient is scheduled for lab review Solar Thermal Technician Required: No Allergies No Known Allergies Allergy (Verified 10/19/24 10:45) Medication List - Last Reconciled 10/19/24 by Victorino Wilburn MD allopurinol 200 mg (2 x 100 mg) PO DAILY 90 days colchicine 0.6 mg PO DAILY PRN fenofibrate 160 mg PO DAILY 30 days omeprazole 20 mg PO DAILY Tobacco use date assessed: 02/12/23 Dental Screening Dental Screen Date: 10/31/22 HPI f/u lipids HPI Details 49 y/o male presents to f/u mixed HLD wi th high triglyceride levels. Had started him on fenofibrate and advised working on lifestyle changes. Labs drawn 10/18/24. Reviewed labs with pt. Elevated AST of 46. Triglycerides improved from 428 to 113. TC 210. LDL 107. HDL 81. Complaints of poison giovanni. [facility] Medical History Spermatocele Hematuria History of snoring Long-term current use of high risk medication other than anticoagulant Idiopathic gout of multiple sites Bilateral knee pain Swelling of foot joint Swelling of joint, ankle, left Swelling of joint of left knee Kidney disease Shingles GERD (gastroesophageal reflux disease) Gout Surgical History Hx of esophagogastroduodenoscopy Hx of colonoscopy H/O arthroscopic knee surgery Family History Father Gout Maternal Grandfather Alcohol abuse Brother Kidney disease Social History Household Members: None Housing: House Alcohol intake: current Patient Tobacco Use Status: Former Tobacco user Cigarette Packs Per Day: 0.5 Years Smoked: 5 e-Cigarette/Vaping Use: Never Used Substance Use Type: Marijuana service: No Current occupational status: employed 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 Cognitive needs: No Hearing needs: No Vision needs: No Questionnaire Thrive Questionnaire Date Thrive assessed: 06/02/24 I am a: Patient What is your living situation today?: I have a steady place to live Within the past 12 months, did the food you bought not last and you didn't have the money to get more?: Never true Within the past 12 months, did you worry whether your food would run out before you got money to buy more?: Never true Do you have trouble paying for medicines?: No Do you have trouble getting transportation to medical appointments?: No Do you have trouble paying your heating and electricity bill?: No Do you have trouble taking care of your child, family member or friend?: No Do you have trouble with day-to-day activities such as bathing, preparing meals, shopping, managing finances, etc.?: No Are you currently unemployed and looking for a job?: No Are you interested in more education?: No Please select the resources that you would like help with: None Currently or been in a relationship where the following occur: I choose not to answer THRIVE Score: 0 Review of Systems Const Denies chills, Denies fatigue, Denies fever(s), Denies headache(s) and Denies weakness ENT Denies dizziness and Denies headache(s) Card Denies dyspnea Resp Denies cough, Denies dyspnea, Denies wheezing and Denies other (shortness of breath) Musc Denies numbness and Denies tingling Neuro Denies dizziness, Denies headache(s), Denies numbness, Denies tingling and Denies weakness Psych Denies anxiety and Denies depression Endo Denies fatigue Aller/Immun Denies wheezing Physical exam (Primary Care) Vital Signs: Last Vital Signs Temp 97.7 F 10/19/24 10:46 Pulse 78 10/19/24 10:46 Resp 12 10/19/24 10:46 BP 110/66 10/19/24 10:46 Pulse Ox 96 10/19/24 10:46 Oxygen Delivery Method Room Air 10/19/24 10:46 BMI result Body Mass Index 26.0 Tobacco/Smoking Status: Tobacco use Status Tobacco use date assessed 02/12/23 10/19/24 10:51 Patient Tobacco Use Status Former Tobacco user 10/19/24 10:51 e-Cigarette/Vaping Use Never Used 10/19/24 10:51 Thrive Assessment: Date of Thrive Assessment Date Thrive assessed 06/02/24 10/19/24 10:51 Currently or been in a relationship where the following occur: I choose not to answer Const General: well developed; No acute distress Nutritional Appearance: well nourished Orientation/consciousness: patient oriented x3 HENMT Head: Yes normocephalic and Yes atraumatic Eyes General: appearance normal, both eyes and all related structures Pupils: Equal, round and reactive pupils present EOM: EOMs intact bilaterally Resp Effort & Inspection: normal respiratory effort Neuro General: patient oriented x3 and gait normal Cranial nerves: Yes Equal, round and reactive pupils present Psych Affect: normal affect Coding Level of Care Code Est Pt Level 4 (92529) Diagnoses Mixed hyperlipidemia E78.2 Elevated AST (SGOT) R74.01 Foreign body in skin T14.8XXA Poison giovanni L23.7 Assessment & Plan Assessment & Plan (1) Mixed hyperlipidemia: Code(s): E78.2 - Mixed hyperlipidemia Category: Medical Plan: Lipids are much improved on fenofibrate LDL and TC cholesterol are still slightly above goal HDL is good Encouraged diet low in saturated fats and cholesterol We can recheck this prior to his next visit in February (2) Elevated AST (SGOT): Code(s): R74.01 - Elevation of levels of liver transaminase levels Category: Medical Plan: Mildly elevated AST and we will recheck this at his next visit. He has been working on decreased alcohol intake (3) Foreign body in skin: Code(s): T14.8XXA - Other injury of unspecified body region, initial encounter Category: Medical Plan: Small foreign body in skin with pimple-like abscess No significant erythema or streaking He can use warm compresses to bring this to had an encouraged drainage Skin should which this out Call or return to office if any problems such as increasing redness pain or streaking (4) Poison giovanni: Code(s): L23.7 - Allergic contact dermatitis due to plants, except food Category: Medical Plan: Poison giovanni on bilateral forearms and legs He is using calamine lotion Can also use OTC hydrocortisone cream Clean tools and clothing Should resolve without further intervention Orders: Orders Comprehensive [place]. Panel Fast Today E78.2 - Mixed hyperlipidemia, Z00.00 - Encounter for general adult medical examination without abnormal findings Lipid Panel Today E78.2 - Mixed hyperlipidemia, Z00.00 - Encounter for general adult medical examination without abnormal findings Medications: Changed From fenofibrate 160 mg PO DAILY 30 days 30 tabs 3RF To fenofibrate 160 mg PO DAILY 90 tabs 3RF 90 days
[2024-10-19 10:46] VITALS: BP 110/66; PULSE 78; RESP 12; TEMP 36.5; O2SAT 96; BMI 26.0
== END 2024-10-19 11:17 | disposition home or self-care (01) ==
LOC: HO.HMCFM 10:26
PROVIDERS: PCP Family Medicine; Visit Provider Family Medicine
DX: E78.2 Mixed hyperlipidemia (principal); R74.01 Elevation of levels of liver transaminase levels; T14.8XXA Other injury of unspecified body region, initial encounter; L23.7 Allergic contact dermatitis due to plants, except food

== ENCOUNTER 2024-10-24 13:01 | Outpatient (REF) | payer BC, SELFPAY ==
--- NOTE | ~2024-10-24 | US_ITS ---
EXAMINATION: US BLADDER HISTORY: R97.20 - Elevated prostate specific antigen [PSA] COMPARISON: There are no prior studies available for comparison. FINDINGS: Sonographic examination of the urinary bladder was performed before and after voiding. Before voiding, the urinary bladder measured 8.5 x 7.7 x 8.7, for an estimated volume of 298 mL. After voiding, the urinary bladder measured 4.3 x 1.7 x 4.4, for an estimated volume of 16.8 mL. No intrinsic bladder abnormality is identified. Bilateral ureteral jets are identified. The prostate measures 3.7 x 3.1 x 4.5 cm, for an estimated volume of 27.2 mL. US/US bladder IMPRESSION: 1. Unremarkable ultrasound of the urinary bladder. 2. Post void bladder residual of 16.8 mL. 3. Prostate volume of 27.2 mL. Electronically signed by: Bonifacio Robb MD 10/24/2024 02:22 PM EDT
--- OUTSIDE RECORDS SUMMARY | 2024-10-24 13:46 | XMS_ITS | Clinical Summary ---
Author Organization [facility] Address [address] [place] [id number] Phone Care Team Providers Care Music Education Director Name Role Phone Jordy Anderson MD Primary Care Provider + [phone] Allergies No known active allergies Medications No known medications Active Problems Problem Noted Date Diagnosed Date Pain and swelling of right knee 11/09/2017 Pain and swelling of right ankle 11/09/2017 Family History Medical History Relation Comments No Known Problems Brother Gout Father No Known Problems Maternal Aunt No Known Problems Maternal Grandfather No Known Problems Maternal Grandmother No Known Problems Maternal Uncle No Known Problems Mother No Known Problems Paternal Aunt No Known Problems Paternal Grandfather No Known Problems Paternal Grandmother No Known Problems Paternal Uncle No Known Problems Sister No Known Problems Unspecified Cancer Neg Hx Clotting disorder Neg Hx Collagen disease Neg Hx Depression Neg Hx Diabetes Neg Hx Dislocations Neg Hx Infl. arthritis Neg Hx Osteoporosis Neg Hx Scoliosis Neg Hx Relation Status Comments Brother Father Maternal Aunt Maternal Grandfather Maternal Grandmother Maternal Uncle Mother Paternal Aunt Paternal Grandfather Paternal Grandmother Paternal Uncle Sister Unspecified Social History Tobacco Use Types Packs/Day Years Used Date Smoking Tobacco: Former Smokeless Tobacco: Never Comments:quit at age 20 Alcohol Use Standard Drinks/Week Comments Yes 0 (1 standard drink = 0.6 oz pur e alcohol) Education Answer Date Recorded Are you interested in more education? Not on ernesto e 08/01/2022 Are you concerned about learning? Not on file 08/01/2022 No 08/01/2022 No 08/01/2022 Digital Access Answer Date Recorded No 08/30/2022 No 08/30/2022 No 08/30/2022 Reliable internet access at home? Not on file 08/30/2022 Device with a working camera? Not on file Sex and Gender Information Value Date Recorded Sex Assigned at Not on file Legal Sex Male 9:31 PM EDT Gender Identity Not on file Sexual Orientation Not on file Last Filed Vital Signs Vital Sign Reading Time Taken Comments Blood Pressure 124/85 11/09/2017 11:34 AM EDT Pulse 101 11/09/2017 11:34 AM EDT Temperature - - Respiratory Rate - - Oxygen Saturation - - Inhaled Oxygen Concentration - - Weight - - Height - - Body Mass Index - - Plan of Treatment Health Maintenance Due Date Last Done Comments Adult Td,Tdap Booster 1973 DEPRESSION SCREENING 1985 SMOKING Hx and SMOKELESS TOBACCO SCREENING 1986 HEPATITIS C SCREENING 1991 HIV ONE-TIME SCREENING (18-65 YEARS) 1991 COLOGUARD 2018 COLONOSCOPY 2018 COLORECTAL CANCER SCREENING 2018 FIT TEST 2018 FOBT 2018 SIGMOIDOSCOPY 2018 VIRTUAL COLONOSCOPY 2018 PNEUMOCOCCAL VACCINES (50+ years) (1 of 1 - PCV) 2023 ZOSTER VACCINES (1 of 2) 2023 COVID-19 VACCINE (3 season) 2023 05/23/2020, 05/02/2020 LIPID PANEL 01/02/2026 01/02/2021, 12/06, 09/16/2019, Additional history exists HEPATITIS A VACCINES Aged Out No long er eligible based on patient's age to complete this topic HIB VACCINES Aged Out No longer eligi ble based on patient's age to complete this topic MENINGOCOCCAL VACCINES (ACWY) Aged Out No longer eligible based on patient's age to complete this topic MENINGOCOCCAL VACCINES (B) Aged Out N o longer eligible based on patient's age to complete this topic Medical Devices Not on file Procedures Procedure Name Priority Date/Time Associated Diagnosis Comments LIPID PANEL Routine 01/02/2021 9:08 AM EDT Gout, unspecified cause, unspecified chronicity, unspecified site Proteinuria, unspecified type from Last 3 Months or Most Recently Relevant to Health Maintenance Results * (ABNORMAL) Lipid panel (01/02/2021 9:08 AM EDT) HDL 95 mg/dL [facility] Comment: Interpretation <40 mg/dL: Low HDL cholesterol (major risk factor for CHD) Greater than or equal to 60 mg/dL: High HDL cholesterol ( negative risk factor for CHD) HDL - cholesterol is affected by a number of factors, e.g. smoking, excerise, hormones, sex and age. CHOLESTEROL 326(H) 0 - 240 mg/dL [facility] TRIGLYCERIDES 300(H) 30 - 160 mg/dL [facility] LDL 171(H) 50 - 129 mg/dL [facility] Comment: LDL levels in terms of risk for coronary heart disease: <100 mg/dL: Optimal 100-129 mg/dL: Near or above optimal 130-159 mg/dL: Borderline high 160-189 mg/dL: High >190 mg/dL: Very High CARDIAC RISK RATIO 3.4 3.4 - 5.0 C [facility] Blood 01/02/2021 9:08 AM EDT 01/02/2021 9:12 AM EDT us Jordy Anderson MD LAB BLOOD ORDERABLES Final R esult [facility] [address] [place] [phone] from Last 3 Months or Most Recently Relevant to Health Maintenance Insurance [facility] Care Teams Music Education Director Relationship Specialty Start Date End Date Jordy Anderson MD [address] [place] [phone] [email or web address] PCP - General Internal Medicine 11/09/17 Additional Source Comments The information contained in this document represents components of the legal health record. It is not the complete legal health record.[facility]
== END 2024-10-24 13:02 | disposition home or self-care (01) ==
LOC: HO.US 13:01
PROVIDERS: PCP Family Medicine; Visit Provider Urology
DX: R97.20 Elevated prostate specific antigen [PSA] (principal)
CPT/HCPCS: 76857

== ENCOUNTER → 2024-10-24 13:03 | Outpatient (BNV) | payer BC, SELFPAY | PROVIDERS: PCP Family Medicine; Visit Provider Radiology Diagnostic Radiology | DX: R39.14 Feeling of incomplete bladder emptying (principal) | CPT/HCPCS: 76857 ==

== ENCOUNTER 2024-11-04 10:35 | Outpatient (REF) | payer BC, SELFPAY ==
--- OUTSIDE RECORDS SUMMARY | 2024-11-04 10:42 | XMS_ITS | Clinical Summary ---
Author Organization [facility] Address [address] [place] [phone] Phone Care Team Providers Care Technology Teacher Name Role Phone Jordy Anderson MD Primary Care Provider + [phone] Allergies No known active allergies Medications No [...] (01/02/2021 9:08 AM EDT) HDL 95 mg/dL [facility] Comment: Interpretation <40 mg/dL: Low HDL cholesterol (major risk factor for CHD) Greater than or equal to 60 mg/dL: High HDL cholesterol ( negative risk factor for CHD) HDL - cholesterol is affected by a number of factors, e.g. smoking, excerise, hormones, sex and age. CHOLESTEROL 326(H) 0 - 240 mg/dL [facility] TRIGLYCERIDES 300(H) 30 - 160 mg/dL [facility] LDL 171(H) 50 - 129 mg/dL [facility] Comment: LDL levels in terms of risk for coronary heart disease: <100 mg/dL: Optimal 100-129 mg/dL: Near or above optimal 130-159 mg/dL: Borderline high 160-189 mg/dL: High >190 mg/dL: Very High CARDIAC RISK RATIO 3.4 3.4 - 5.0 C [facility] Blood 01/02/2021 9:08 AM EDT 01/02/2021 9:12 AM EDT us Jordy Anderson MD LAB BLOOD ORDERABLES Final R esult [facility] [address] [place] [address] from Last 3 Months or Most Recently Relevant to Health Maintenance Insurance [facility] Care Teams Technology Teacher Relationship Specialty Start Date End Date Jordy Anderson MD [address] [place] [phone] [email or web address] PCP - General Internal Medicine 11/09/17 Additional Source Comments The information contained in this document represents components of the legal health record. It is not the complete legal health record.[facility]
[2024-11-04 13:33] LABS: Prostate Specific Antigen 4.30 ng/mL (<0.05-4.0)
== END 2024-11-04 10:36 | disposition home or self-care (01) ==
LOC: HO.WFDLDS 10:35
PROVIDERS: Urology; Visit Provider Family Medicine
DX: R97.20 Elevated prostate specific antigen [PSA] (principal)
CPT/HCPCS: 36415; 84153

== ENCOUNTER 2024-11-10 09:12 | Outpatient (AMB) | payer BC, SELFPAY ==
--- NOTE | 2024-11-10 09:12 | MHC.OFFVIS ---
Intake Visit Reasons: 3m/ PSA/US Intake Note: Patient is present for 3 MO follow up Urology Medication:ALLOPURINOL Antibiotic Allergy:NONE Blood Thinner:NONE Labs done 11/04/24: PSA 4.30 Poiser Balance Required: No Accompanied by: Self / Same As Patient Allergies No Known Allergies Allergy (Verified 11/10/24 09:14) HPI Comments Details: Carmelo is a pleasant male. He is a patient Dr. Wilburn. He is seen for the following urologic conditions - epididymal cyst - elevated PSA Telemedicine Evaluation 15 min Consultation Common[facility] [place] Video Elevated PSA Remains elevated for under 55 Recommend repeat PSA in 4 months and prostate MRI for possible targeted biopsy Recommend three-month follow-up repeat PSA plus bladder ultrasound Seeing Nephrology regarding microscopic hematuria Renal ultrasound cysts right side no evident stones Referral for elevated PSA PSA - 10/26 3.4, 06/28 4.3, 11/28 4.3 PFSH Medical History Spermatocele Hematuria History of snoring Long-term current use of high risk medication other than anticoagulant Idiopathic gout of multiple sites Bilateral knee pain Swelling of foot joint Swelling of joint, ankle, left Swelling of joint of left knee Kidney disease Shingles GERD (gastroesophageal reflux disease) Gout Surgical History Hx of esophagogastroduodenoscopy Hx of colonoscopy H/O arthroscopic knee surgery Family History Father Gout Maternal Grandfather Alcohol abuse Brother Kidney disease Social History Household Members: None Housing: House Alcohol intake: current Patient Tobacco Use Status: Former Tobacco user Cigarette Packs Per Day: 0.5 Years Smoked: 5 e-Cigarette/Vaping Use: Never Used Substance Use Type: Marijuana service: No Current occupational status: employed 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 Cognitive needs: No Hearing needs: No Vision needs: No Review of Systems Const All systems reviewed & are unremarkable except as noted in HPI and below Reports no additional complaints Resp Reports no additional complaints GI Reports no additional complaints Reports as per HPI Musc Reports no additional complaints Physical Exam Telemedicine evaluation Appropriate responses Regular breathing rate and rhythm HEENT Head: Yes normal to inspection Ears: hearing grossly normal bilaterally Eyes General: appearance normal, both eyes and all related structures Neck Neck: Yes normal visual inspection Chest Chest palpation & inspection: normal inspection of the chest Resp Effort & Inspection: normal respiratory effort and able to speak in complete sentences Telehealth Telehealth Telehealth Platform: [employer] Location of provider rendering services: practice address Location of patient: address on file Patient Identification confirmed using: Name, : Yes Telehealth method: video Patient verbally consented to treatment: Yes Patient verbally consented to billing insurance company: Yes Patient informed of any privacy concerns related to visit: Yes Minutes spent on Phone/Video with Pt.: 15 Assessment & Plan Assessment & Plan (1) Elevated PSA: Code(s): R97.20 - Elevated prostate specific antigen [PSA] Category: Medical Plan Four month follow-up PSA with prostate MRI Orders: Orders MR Prostate wo/w con Today R97.20 - Elevated prostate specific antigen [PSA] PSA,Total (Free>4and<10) 4 Months R97.20 - Elevated prostate specific antigen [PSA] Patient Instructions: This note is constructed using voice recognition software. While every effort has been made to ensure accuracy route delivery clerk errors may have been included. Imaging studies, laboratory and physical exam results were discussed and reviewed in detail. No major barriers to patient understanding were identified. An opportunity to ask questions regarding the treatment plan was provided. All questions were answered. The patient expressed understanding and agreement with the above treatment plan. The patient is aware they should contact our office by phone for worsening of their current condition or the appearance of new urologic symptoms. Compliance is encouraged with any medications and followup testing that is ordered. It is a privilege to participate in the urologic care of your patient. If you have any questions or concerns regarding treatment for the above conditions, or other urologic issues, please do not hesitate to contact me. The office telephone contact is [phone]. Sincerely, Dr Chaitanya Verdugo MD, [place] [facility] - Urology Compassionate Specialist Care for the Genitourinary System Coding Level of Care Code Tele Est Pt Level 3 (59502) Complex EM visit Add On G2211 Diagnoses Elevated PSA R97.20
--- OUTSIDE RECORDS SUMMARY | 2024-11-10 09:33 | XMS_ITS | Clinical Summary ---
Author Organization [facility] Address [address] [address] [place] [address] Phone Care Team Providers Care Pediatrics Teacher Name Role Phone Jordy Anderson MD Primary Care Provider + [phone] Allergies No known active allergies Medications No [...] (01/02/2021 9:08 AM EDT) HDL 95 mg/dL [facility] Comment: Interpretation <40 mg/dL: Low HDL cholesterol (major risk factor for CHD) Greater than or equal to 60 mg/dL: High HDL cholesterol ( negative risk factor for CHD) HDL - cholesterol is affected by a number of factors, e.g. smoking, excerise, hormones, sex and age. CHOLESTEROL 326(H) 0 - 240 mg/dL [facility] TRIGLYCERIDES 300(H) 30 - 160 mg/dL [facility] LDL 171(H) 50 - 129 mg/dL [facility] Comment: LDL levels in terms of risk for coronary heart disease: <100 mg/dL: Optimal 100-129 mg/dL: Near or above optimal 130-159 mg/dL: Borderline high 160-189 mg/dL: High >190 mg/dL: Very High CARDIAC RISK RATIO 3.4 3.4 - 5.0 C [facility] Blood 01/02/2021 9:08 AM EDT 01/02/2021 9:12 AM EDT us Jordy Anderson MD LAB BLOOD ORDERABLES Final R esult [facility] [address] [place] [address] from Last 3 Months or Most Recently Relevant to Health Maintenance Insurance [facility] Care Teams Pediatrics Teacher Relationship Specialty Start Date End Date Jordy Anderson MD [address] [place] [id number] [email or web address] PCP - General Internal Medicine 11/09/17 Additional Source Comments The information contained in this document represents components of the legal health record. It is not the complete legal health record.[facility]
== END 2024-11-10 12:20 | disposition home or self-care (01) ==
LOC: HO.HUSH 09:12
PROVIDERS: PCP Family Medicine; Visit Provider Urology
DX: R97.20 Elevated prostate specific antigen [PSA] (principal)
CPT/HCPCS: 99213

== ENCOUNTER 2025-02-23 10:59 | Outpatient (REF) | payer BC, SELFPAY ==
[2025-02-23 14:43] LABS: Alanine Aminotransferase 23 U/L (0-40); Albumin Level 4.5 g/dL (3.5-5.0); Alkaline Phosphatase 45 U/L (39-117); Anion Gap 16 (12-20); Aspartate Amino Transferase 32 U/L (5-37); Blood Urea Nitrogen 20 mg/dL (9-16); Calcium 9.5 mg/dL (8.4-10.2); Carbon Dioxide 25 mmol/L (22-29); Chloride 103 mmol/L (96-108); Cholesterol 283 mg/dL (<200); Estimated Glomerular Filt Rate > 60; HDL Cholesterol 96 mg/dL (>40); Potassium 4.1 mmol/L (3.3-5.1); Sodium 140 mmol/L (135-145); Total Protein 7.4 g/dL (6.5-8.0); Triglycerides 144 mg/dL (<150)
--- OUTSIDE RECORDS SUMMARY | 2025-02-23 16:43 | XMS_ITS | Clinical Summary ---
Author Organization [facility] Address [address] [place] [phone] Phone Care Team Providers Care Environmental Geologist Name Role Phone Jordy Anderson MD Primary Care Provider + [phone] Allergies No known active allergies Medications No [...] 2023 ZOSTER VACCINES (1 of 2) 2023 INFLUENZA VACCINE (#1) 2024 COVID-19 VACCINE (3 - 2024- season) 2024 05/23/2020, 05/02/2020 LIPID PANEL 01/02/2026 01/02/2021, 12/06, 09/16/2019, Additional history exists RSV VACCINE (1 - 1-dose 75+ series) 01/07/2048 HEPATITIS A VACCINES Aged Out No long [...] (01/02/2021 9:08 AM EDT) HDL 95 mg/dL [facility] Comment: Interpretation <40 mg/dL: Low HDL cholesterol (major risk factor for CHD) Greater than or equal to 60 mg/dL: High HDL cholesterol ( negative risk factor for CHD) HDL - cholesterol is affected by a number of factors, e.g. smoking, excerise, hormones, sex and age. CHOLESTEROL 326(H) 0 - 240 mg/dL [facility] TRIGLYCERIDES 300(H) 30 - 160 mg/dL [facility] LDL 171(H) 50 - 129 mg/dL [facility] Comment: LDL levels in terms of risk for coronary heart disease: <100 mg/dL: Optimal 100-129 mg/dL: Near or above optimal 130-159 mg/dL: Borderline high 160-189 mg/dL: High >190 mg/dL: Very High CARDIAC RISK RATIO 3.4 3.4 - 5.0 C [facility] Blood 01/02/2021 9:08 AM EDT 01/02/2021 9:12 AM EDT us Jordy Anderson MD LAB BLOOD BKR ORDERABLES Fin al Result [facility] [address] [place] [address] from Last 3 Months or Most Recently Relevant to Health Maintenance Care Teams Environmental Geologist Relationship Specialty Start Date End Date Jodry Anderson MD [address] [place] [phone] [email or web address] PCP - General Internal Medicine 11/09/17 Additional Source Comments The information contained in this document represents components of the legal health record. It is not the complete legal health record.[facility]
--- OUTSIDE RECORDS SUMMARY | 2025-02-23 16:43 | XMS_ITS | Encounter Summary ---
Author Organization [facility] Address [address] [address] Phone Care Team Providers Care Wholesale And Retail Merchant Name Role Phone Jordy Anderson MD Primary Care Provider + [phone] Jordy Anderson MD Unavailable [phone] Encounter Details Date Type Department Care Team ([facility] st Contact Info) Description 11/09/2017 Transcribe Orders [facility] Specimen Processing [address] [place] [address] Jordy Anderson MD [address] [place] [id number] [email or web address] Pain (Primary Dx) Social History Tobacco Use Types Packs/Day Years Used Date Smoking Tobacco: Former Smokeless Tobacco: Never Comments:quit at age 20 Alcohol Use Standard Drinks/Week Comments Yes 0 (1 standard drink = 0.6 oz pur e alcohol) Sex and Gender Information Value Date Recorded Sex Assigned at Not on file Legal Sex Male 9:31 PM EDT Gender Identity Not on file Sexual Orientation Not on file documented as of this encounter Plan of Treatment Not on file documented as of this encounter Procedures Procedure Name Priority Date/Time Associated Diagnosis Comments LAB ADD ON Routine 11/09/2017 11:45 AM EDT Pain documented in this encounter Results * Lab Add On: Lyme AB screen (11/09/2017 11:45 AM EDT) CONTACT INFORMATION [phone] ANDERSON [facility] TEST REQUESTED LYME AB SCREEN [facility] Comments (Chemistry) UNABLE TO ADD TEST TO AN EXISTING SPECIMEN [facility] 11/09/2017 11:4 5 AM EDT 11/09/2017 12:21 PM EDT us Jordy Anderson MD LAB BLOOD ORDERABLES Final R esult [facility] [address] [place] [address] documented in this encounter Visit Diagnoses Diagnosis Pain- Primary Generalized pain documented in this encounter Care Teams Wholesale And Retail Merchant Relationship Specialty Start Date End Date Jordy Anderson MD [address] [address] [email or web address] PCP - General Internal Medicine 11/09/17 Jordy Anderson MD [address] [address] [email or web address] Insurance Assigned Provider 08/10/19 10/11/22 documented as of this encounter Additional Source Comments The information contained in this document represents components of the legal health record. It is not the complete legal health record.[facility]
--- OUTSIDE RECORDS SUMMARY | 2025-02-23 16:43 | XMS_ITS | Encounter Summary ---
Author Organization [facility] Address [address] [address] Phone Care Team Providers Care Ingot Stripper Name Role Phone Jordy Anderson MD Primary Care Provider + [phone] Jordy Anderson MD Unavailable [phone] Encounter Details Date Type Department Care Team (Latest Contact Info) Description 05/04/2019 Transcribe Orders [address] [address] Jordy Anderson MD [address] [place] [address] [email or web address] Gout, unspecified cause, unspecified chronicity, unspecified site (Primary Dx) Social History Tobacco Use Types [...] on file documented as of this encounter Results * (ABNORMAL) Uric acid (05/04/2019 9:47 AM EST) URIC ACID 8.4(H) 2.4 - 7.0 mg/dL [facility] Blood 05/04/2019 9:47 AM EST 05/04/2019 10:26 AM EST us Jordy Anderson MD LAB BLOOD BKR ORDERABLES Fin al Result [facility] [address] [place], [place] [phone] * CBC and differential (05/04/2019 9:47 AM EST) WBC 4.79 3.40 - 11.20 K/uL [facility] RBC 5.23 4.50 - 5.50 M/uL [facility] HGB 15.0 13.0 - 17.0 g/dL [facility] HCT 45.0 40.0 - 51.0 % [facility] PLT 277 130 - 400 K/uL [facility] MCV 86.0 79.0 - 98.0 fL [facility] MCH 28.7 27.0 - 34.8 pg [facility] MCHC 33.3 31.5 - 36.0 g/dL [facility] RDW 13.3 10.8 - 14.6 % [facility] MPV 11.2 9.4 - 12.4 fl [facility] NRBC 0.00 0.00 /100 WBCs [facility] ABSOLUTE NRBC 0.00 0.00 K/uL [facility] DIFF METHOD Auto [facility] NEUTS 51.0 45.30 - 77.70 % [facility] LYMPHS 34.0 12.30 - 39.70 % [facility] MONOS 12.3 4.10 - 12.80 % [facility] EOS 1.5 0 - 7.2 % [facility] BASOS 1.0 0 - 2.80 % [facility] Granulocytes, immature (%) 0.2 0.0 - 0.9 % [facility] ABSOLUTE NEUTS 2.44 1.40 - 7.70 K/uL [facility] ABSOLUTE LYMPHS 1.63 0.60 - 3.20 K/uL [facility] ABSOLUTE MONOS 0.59 0.11 - 0.59 K/uL [facility] ABSOLUTE EOS 0.07 0.01 - 0.50 K/uL [facility] ABSOLUTE BASOS 0.05 0.00 - 0.08 K/uL [facility] Granulocytes, immature 0.01 0.00 - 0.05 K/uL [facility] Blood 05/04/2019 9:47 AM EST 05/04/2019 10:26 AM EST us Jordy Anderson MD LAB BLOOD BKR ORDERABLES Fin al Result Performing Organization Address [facility] Co de Phone Number [address] [address] * (ABNORMAL) Lipid panel (05/04/2019 9:47 AM EST) HDL 99 mg/dL [facility] Comment: Interpretation <40 mg/dL: Low HDL cholesterol (major risk factor for CHD) Greater than or equal to 60 mg/dL: High HDL cholesterol ( negative risk factor for CHD) HDL - cholesterol is affected by a number of factors, e.g. smoking, excerise, hormones, sex and age. CHOLESTEROL 320(H) 0 - 240 mg/dL [facility] TRIGLYCERIDES 245(H) 30 - 160 mg/dL [facility] LDL 172(H) 50 - 129 mg/dL [facility] Comment: LDL levels in terms of risk for coronary heart disease: <100 mg/dL: Optimal 100-129 mg/dL: Near or above optimal 130-159 mg/dL: Borderline high 160-189 mg/dL: High >190 mg/dL: Very High CARDIAC RISK RATIO 3.2(L) 3.4 - 5.0 C [facility] Blood 05/04/2019 9:47 AM EST 05/04/2019 10:26 AM EST us Jordy Anderson MD LAB BLOOD BKR ORDERABLES Fin al Result Performing Organization Address [facility] Co de Phone Number [address] [address] * (ABNORMAL) Comprehensive metabolic panel (05/04/2019 9:47 AM EST) SODIUM 139 133 - 146 mmol/L [facility] POTASSIUM 4.4 3.3 - 5.1 mmol/L [facility] CHLORIDE 98 96 - 108 mmol/L [facility] CO2 29 21 - 35 mmol/L [facility] BUN 13 6 - 19 mg/dL [facility] CREATININE 0.60 0.5 - 1.5 mg/dL [facility] GLUCOSE 106(H) 70 - 99 mg/dL [facility] ALBUMIN 4.1 3.9 - 4.8 g/dL [facility] TOTAL PROTEIN 7.7 6.5 - 8.0 g/dL [facility] CALCIUM 9.8 8.4 - 10.3 mg/dL [facility] ALKALINE PHOSPHATASE 101 39 - 117 U/L [facility] TOTAL BILIRUBIN 0.4 0.0 - 1.2 mg/dL [facility] AST 53(H) 0 - 37 U/L [facility] ALT 44(H) 0 - 40 U/L [facility] GLOBULIN 3.6 1 - 4.8 g/dL [facility] EGFR >120 >59 mL/min/1.7 3m2 [facility] Comment:If patient is black, multiply result by 1.159. Estimated glomerular filtration rate calculated using the CKD-EPI equation. ANION GAP 16 10 - 20 mmol/L [facility] Blood 05/04/2019 9:47 AM EST 05/04/2019 10:26 AM EST us Jordy Anderson MD LAB BLOOD BKR ORDERABLES Fin al Result [facility] [address] [place] [address] documented in this encounter Visit Diagnoses Diagnosis Gout, unspecified cause, unspecified chronicity, unspecified site- Primary documented in this encounter Care Teams Ingot Stripper Relationship Specialty Start Date End Date Jordy Anderson MD [address] [address] [email or web address] PCP - General Internal Medicine 11/09/17 Jordy Anderson MD [address] [address] [email or web address] Insurance Assigned Provider 08/10/19 10/11/22 documented as of this encounter Additional Source Comments The information contained in this document represents components of the legal health record. It is not the complete legal health record.[facility]
--- OUTSIDE RECORDS SUMMARY | 2025-02-23 16:44 | XMS_ITS | Encounter Summary ---
Author Organization [facility] Address [address] [place] [phone] Phone Care Team Providers Care Cyber Security Instructor Name Role Phone Pcp, Unknown Primary Care Provider UnavailJordy Laguna MD Primary Care Provider + [phone] Jordy Anderson MD Unavailable [phone] Encounter Details Date Type Department Care Team (Latest Contact Info) Description 11/06/2017 Transcribe Orders [facility] Phleb [place] [address] [place] [address] Jordy Anderson MD [address] [place] [id number] [email or web address] Acute idiopathic gout, unspecified site (Primary Dx) Social History Tobacco Use Types Packs/Day Years Used Date Smoking Tobacco: Never Assessed Sex and Gender Information Value Date Recorded Sex Assigned at Not on file Legal Sex Male 9:31 PM EDT Gender Identity Not on file Sexual Orientation Not on file documented as of this encounter Plan of Treatment Not on file documented as of this encounter Results * (ABNORMAL) Sedimentation rate (ESR) (11/06/2017 3:25 PM EDT) ESR 26(H) 0 - 15 mm/h [facility] Blood 11/06/2017 3:25 PM EDT 11/06/2017 3:30 PM EDT us Jordy Anderson MD LAB BLOOD BKR ORDERABLES Fin al Result [address] [address] * Uric acid (11/06/2017 3:25 PM EDT) Pathologist [facility] URIC ACID 6.1 2.4 - 7.0 mg/dL [facility] Blood 11/06/2017 3:25 PM EDT 11/06/2017 3:30 PM EDT us Jordy Anderson MD LAB BLOOD BKR ORDERABLES Fin al Result Performing Organization Address [facility] Co de Phone Number [address] [address] * (ABNORMAL) C-Reactive Protein (11/06/2017 3:25 PM EDT) Pathologist [facility] C REACTIVE PROTEIN 78.6(H) 0.0 - 4.0 mg/L [facility] Comment:New Reference Range and Measuring Units effective 08/19/17. Blood 11/06/2017 3:25 PM EDT 11/06/2017 3:30 PM EDT us Jordy Anderson MD LAB BLOOD BKR ORDERABLES Fin al Result Performing Organization Address [facility] Co de Phone Number [address] [address] * (ABNORMAL) CBC and differential (11/06/2017 3:25 PM EDT) Pathologist [facility] WBC 9.30 3.40 - 11.20 K/uL [facility] RBC 4.90 4.50 - 5.50 M/uL [facility] HGB 14.4 13.0 - 17.0 g/dL [facility] HCT 43.3 40.0 - 51.0 % [facility] PLT 232 130 - 400 K/uL [facility] MCV 88.4 79.0 - 98.0 fL [facility] MCH 29.4 27.0 - 34.8 pg [facility] MCHC 33.3 31.5 - 36.0 g/dL [facility] RDW 12.7 10.8 - 14.6 % [facility] MPV 12.0 9.4 - 12.4 fl [facility] NRBC 0.00 /100 WBCs [facility] ABSOLUTE NRBC 0.00 K/uL [facility] DIFF METHOD Auto [facility] NEUTS 72.7 45.30 - 77.70 % [facility] LYMPHS 16.0 12.30 - 39.70 % [facility] MONOS 10.3 4.10 - 12.80 % [facility] EOS 0.3 0 - 7.2 % [facility] BASOS 0.4 0 - 2.80 % [facility] Granulocytes, immature (%) 0.3 0.0 - 0.9 % [facility] ABSOLUTE NEUTS 6.75 1.40 - 7.70 K/uL [facility] ABSOLUTE LYMPHS 1.49 0.60 - 3.20 K/uL [facility] ABSOLUTE MONOS 0.96(H) 0.11 - 0.59 K/uL [facility] ABSOLUTE EOS 0.03 0.01 - 0.50 K/uL [facility] ABSOLUTE BASOS 0.04 0.00 - 0.08 K/uL [facility] Granulocytes, immature 0.03 0.00 - 0.05 K/uL [facility] Blood 11/06/2017 3:25 PM EDT 11/06/2017 3:30 PM EDT us Jordy Anderson MD LAB BLOOD BKR ORDERABLES Fin al Result [address] [address] documented in this encounter Visit Diagnoses Diagnosis Acute idiopathic gout, unspecified site- Primary documented in this encounter Care Teams Cyber Security Instructor Relationship Specialty Start Date End Date Pcp, Unknown PCP - General 10/01/17 11/08/17 Jordy Anderson MD [address] [place] [id number] [email or web address] PCP - General Internal Medicine 11/09/17 Jordy Anderson MD [address] [address] [email or web address] Insurance Assigned Provider 08/10/19 10/11/22 documented as of this encounter Additional Source Comments The information contained in this document represents components of the legal health record. It is not the complete legal health record.[facility]
--- OUTSIDE RECORDS SUMMARY | 2025-02-23 16:44 | XMS_ITS | Encounter Summary ---
Author Organization [facility] Address [address] [address] Phone Care Team Providers Care Wire Spooler Name Role Phone Jordy Anderson MD Primary Care Provider + [phone] Jordy Anderson MD Unavailable [phone] Encounter Details Date Type Department Care Team (Latest Contact Info) Description 12/25/2020 Transcribe Orders Virtual Department [address] [place] [phone] Jordy Anderson MD [address] [place] [phone] [email or web address] Scrotal mass (Primary Dx) Social History Tobacco Use Types [...] documented as of this encounter Results * US SCROTUM AND TESTICLES (01/02/2021 11:54 AM EDT) Anatomical Region Laterality Modality Pelvis, Scrotum/Testes, Testes U ltrasound 01/02/2021 11:5 6 AM EDT Impressions 01/02/2021 11:59 AM EDT 1.The left scrotal palpable lump corresponds to an enlarged 4 cm spermatocele. 2.No testicular masses. 3.New small bilateral hydrocele. Narrative 01/02/2021 11:59 AM EDT COMPARISON: 05/20/2013. SCROTAL ULTRASOUND FINDINGS: Right testicle: Right testicle measures 4.6 x 2.1 x 3.4 cm for a volume of 17.2 cc. No testicular masses, calcifications or hyperemia. Normal testicular perfusion. Epididymis is normal. New incidental 2 mm spermatocele. No varicocele. New small hydrocele. Left testicle: Left testicle measures 4.3 x 2.1 x 3.3 cm for a volume of 15.6 cc. No testicular masses or hyperemia. Chronic small incidental 2 mm left intratesticular calcification. Normal testicular perfusion. Epididymis is normal. Interval enlargement of the spermatocele measuring 4 x 2.3 x 3.7 cm at the site of the palpable lump (previously 1.9 x 1.8 x 1.8 cm). No varicocele. New small hydrocele. Procedure Note Javier Younger MD - 01/02/2021 COMPARISON: 05/20/2013. SCROTAL ULTRASOUND FINDINGS: Right testicle: Right testicle measures 4.6 x 2.1 x 3.4 cm for a volume of17.2 cc. No testicular masses, calcifications or hyperemia. Normaltesticular perfusion. Epididymis is normal. New incidental 2 mmspermatocele. No varicocele. New small hydrocele. Left testicle: Left testicle measures 4.3 x 2.1 x 3.3 cm for a volume of15.6 cc. No testicular masses or hyperemia. Chronic small incidental 2 mmleft intratesticular calcification. Normal testicular perfusion.Epididymis is normal. Interval enlargement of the spermatocele measuring 4x 2.3 x 3.7 cm at the site of the palpable lump (previously 1.9 x 1.8 x1.8 cm). No varicocele. New small hydrocele. IMPRESSION: 1.The left scrotal palpable lump corresponds to an enlarged 4 cmspermatocele. 2.No testicular masses. 3.New small bilateral hydrocele. us Jordy Anderson MD IMG US SCROTUM/PENIS Final R esult documented in this encounter Visit Diagnoses Diagnosis Scrotal mass- Primary Other specified disorder of male genital organs Scrotal mass Other specified disorder of male genital organs documented in this encounter Care Teams Wire Spooler Relationship Specialty Start Date End Date Jordy Anderson MD [address] [phone] [email or web address] PCP - General Internal Medicine 11/09/17 Jordy Anderson MD [address] [address] [email or web address] Insurance Assigned Provider 08/10/19 10/11/22 documented as of this encounter Additional Source Comments The information contained in this document represents components of the legal health record. It is not the complete legal health record.[facility]
--- OUTSIDE RECORDS SUMMARY | 2025-02-23 16:44 | XMS_ITS | Encounter Summary ---
Author Organization [facility] Address [address] [address] Phone Care Team Providers Care Care Specialist Name Role Phone Pcp, Unknown Primary Care Provider UnavailJordy Laguna MD Primary Care Provider + [phone] Jordy Anderson MD Unavailable [phone] Encounter Details Date Type Department Care Team (Latest Contact Info) Description 10/01/2017 Transcribe Orders [facility] Phleb [address] [address] Jordy Anderson MD [address] [place] [phone] [email or web address] Hematuria, unspecified type (Primary Dx) Social History Tobacco Use Types Packs/Day Years Used Date Smoking Tobacco: Never Assessed Sex and Gender Information Value Date Recorded Sex Assigned at Not on file Legal Sex Male 9:31 PM EDT Gender Identity Not on file Sexual Orientation Not on file documented as of this encounter Plan of Treatment Not on file documented as of this encounter Results * (ABNORMAL) Urinalysis (10/01/2017 10:41 AM EDT) COLOR Yellow Yellow [facility] CLARITY Clear [facility] GLUCOSE Negative Negative [facility] BILI Negative Negative [facility] KETONES Negative Negative [facility] SPECIFIC GRAVITY 1.020 1.005 - 1.030 [facility] BLOOD 3+(A) Negative [facility] PH 6.0 5.0 - 8.0 [facility] Protein-UA Trace(A) Negative [facility] NITRITE Negative Negative [facility] Leukocyte esterase, ur Negative Negative [facility] Urine (Urine) 10/01/2017 10: 41 AM EDT 10/01/2017 10:43 AM EDT us Jordy Anderson MD LAB URINE ORDERABLES Final R esult Performing Organization Address City/[facility]/ZIP Co de Phone Number [address] [address] * (ABNORMAL) Microalbumin/creatinine ratio, random urine (10/01/2017 10:41 AM EDT) URINE MICROALBUMIN 10.2(H) 0 - 2.3 mg/dL [facility] URINE CREATININE 278 mg/dL [facility] MICROALB/CRE RATIO 36.7(H) 0 - 20 mg/g Cre [facility] Urine (Urine) 10/01/2017 10: 41 AM EDT 10/01/2017 10:43 AM EDT us Jordy Anderson MD LAB URINE ORDERABLES Final R esult Performing Organization Address [facility]/ZIP Co de Phone Number [address] [address] * C-Reactive Protein (10/01/2017 10:19 AM EDT) C REACTIVE PROTEIN 1.4 0.0 - 4.0 mg/L [facility] Comment:New Reference Range and Measuring Units effective 08/19/17. Blood 10/01/2017 10:1 9 AM EDT 10/01/2017 10:27 AM EDT us Jordy Anderson MD LAB BLOOD BKR ORDERABLES Fin al Result Performing Organization Address City/[facility]/ZIP Co de Phone Number [address] [address] * CBC and differential (10/01/2017 10:19 AM EDT) WBC 4.19 3.40 - 11.20 K/uL [facility] RBC 5.05 4.50 - 5.50 M/uL [facility] HGB 14.6 13.0 - 17.0 g/dL [facility] HCT 43.6 40.0 - 51.0 % [facility] PLT 208 130 - 400 K/uL [facility] MCV 86.3 79.0 - 98.0 fL [facility] MCH 28.9 27.0 - 34.8 pg [facility] MCHC 33.5 31.5 - 36.0 g/dL [facility] RDW 14.1 10.8 - 14.6 % [facility] MPV 12.0 9.4 - 12.4 fl [facility] NRBC 0.00 /100 WBCs [facility] ABSOLUTE NRBC 0.00 K/uL [facility] DIFF METHOD Auto [facility] NEUTS 58.4 45.30 - 77.70 % [facility] LYMPHS 27.0 12.30 - 39.70 % [facility] MONOS 12.2 4.10 - 12.80 % [facility] EOS 1.2 0 - 7.2 % [facility] BASOS 1.0 0 - 2.80 % [facility] Granulocytes, immature (%) 0.2 0.0 - 0.9 % [facility] ABSOLUTE NEUTS 2.45 1.40 - 7.70 K/uL [facility] ABSOLUTE LYMPHS 1.13 0.60 - 3.20 K/uL [facility] ABSOLUTE MONOS 0.51 0.11 - 0.59 K/uL [facility] ABSOLUTE EOS 0.05 0.01 - 0.50 K/uL [facility] ABSOLUTE BASOS 0.04 0.00 - 0.08 K/uL [facility] Granulocytes, immature 0.01 0.00 - 0.05 K/uL [facility] Blood 10/01/2017 10:1 9 AM EDT 10/01/2017 10:27 AM EDT us Jordy Anderson MD LAB BLOOD BKR ORDERABLES Fin al Result [address] [address] * (ABNORMAL) Lipid panel (10/01/2017 10:19 AM EDT) HDL 105 mg/dL [facility] Comment: Interpretation: Risk Level Males Decreased >45 mg/dL Average 40-45 mg/dL Increased <40 mg/dL CHOLESTEROL 359(H) 0 - 240 mg/dL [facility] TRIGLYCERIDES 141 30 - 160 mg/dL [facility] LDL 226(H) 50 - 129 mg/dL [facility] Comment: LDL levels in terms of risk for coronary heart disease: <100 mg/dL: Optimal 100-129 mg/dL: Near or above optimal 130-159 mg/dL: Borderline high 160-189 mg/dL: High >190 mg/dL: Very High CARDIAC RISK RATIO 3.4 3.4 - 5.0 C [facility] Blood 10/01/2017 10:1 9 AM EDT 10/01/2017 10:27 AM EDT us Jordy Anderson MD LAB BLOOD BKR ORDERABLES Fin al Result [address] [address] * (ABNORMAL) Comprehensive metabolic panel (10/01/2017 10:19 AM EDT) Pathologist [facility] SODIUM 140 133 - 146 mmol/L [facility] POTASSIUM 3.7 3.3 - 5.1 mmol/L [facility] CHLORIDE 101 96 - 108 mmol/L [facility] CO2 29 21 - 35 mmol/L [facility] BUN 15 6 - 19 mg/dL [facility] CREATININE 0.70 0.5 - 1.5 mg/dL [facility] GLUCOSE 112(H) 70 - 99 mg/dL [facility] ALBUMIN 3.7(L) 3.9 - 4.8 g/dL [facility] TOTAL PROTEIN 6.8 6.5 - 8.0 g/dL [facility] CALCIUM 9.2 8.4 - 10.3 mg/dL [facility] ALKALINE PHOSPHATASE 85 39 - 117 U/L [facility] TOTAL BILIRUBIN 0.7 0.0 - 1.2 mg/dL [facility] AST 61(H) 0 - 37 U/L [facility] ALT 53(H) 0 - 40 U/L [facility] GLOBULIN 3.1 1 - 4.8 g/dL [facility] EGFR 115 >59 mL/min/1.7 3m2 [facility] Comment:If patient is black, multiply result by 1.159. Estimated glomerular filtration rate calculated using the CKD-EPI equation. ANION GAP 14 10 - 20 mmol/L [facility] Blood 10/01/2017 10:1 9 AM EDT 10/01/2017 10:27 AM EDT us Jordy Anderson MD LAB BLOOD BKR ORDERABLES Fin al Result [address] [address] documented in this encounter Visit Diagnoses Diagnosis Hematuria, unspecified type- Primary documented in this encounter Care Teams Care Specialist Relationship Specialty Start Date End Date Pcp, Unknown PCP - General 10/01/17 11/08/17 Jordy Anderson MD [address] [address] [email or web address] PCP - General Internal Medicine 11/09/17 Jordy Anderson MD [address] [address] [email or web address] Insurance Assigned Provider 08/10/19 10/11/22 documented as of this encounter Additional Source Comments The information contained in this document represents components of the legal health record. It is not the complete legal health record.[facility]
== END 2025-02-23 11:00 | disposition home or self-care (01) ==
LOC: HO.WFDLDS 10:59
PROVIDERS: Visit Provider Family Medicine
DX: Z00.00 Encounter for general adult medical examination without abnormal findings (principal); E78.2 Mixed hyperlipidemia
CPT/HCPCS: 36415; 80053; 80061

== ENCOUNTER 2025-03-03 11:20 | Outpatient (REF) | payer BC, SELFPAY ==
--- NOTE | ~2025-03-03 | XR_ITS ---
EXAMINATION: XR ORBITS CLINICAL INFORMATION: Pre MRI. R/O metal in eyes COMPARISON: None available. TECHNIQUE: 4 views of the orbits were obtained. FINDINGS: There is no radiopaque foreign body in either orbit or elsewhere in the soft tissues. Orbits are intact. Paranasal sinuses are normally pneumatized without gross opacity or air-fluid levels. The calvarium appears intact. No bone lesion. The sella is normal in size. The soft tissues appear normal. XR/XR Orbits For Foreign Body IMPRESSION: 1. Normal examination. No radiopaque foreign body in either orbit. Electronically signed by: Eduardo Engel MD 03/03/2025 12:33 PM WU
--- OUTSIDE RECORDS SUMMARY | 2025-03-03 11:22 | XMS_ITS | Clinical Summary ---
Author Organization [facility] Address [address] [facility] [address] [place] [address] Phone Care Team Providers Care Car Starter Name Role Phone Jordy Anderson MD Primary Care Provider + [phone] Allergies No known active allergies Medications No [...] (01/02/2021 9:08 AM EDT) HDL 95 mg/dL [facility] Comment: Interpretation <40 mg/dL: Low HDL cholesterol (major risk factor for CHD) Greater than or equal to 60 mg/dL: High HDL cholesterol ( negative risk factor for CHD) HDL - cholesterol is affected by a number of factors, e.g. smoking, excerise, hormones, sex and age. CHOLESTEROL 326(H) 0 - 240 mg/dL [facility] TRIGLYCERIDES 300(H) 30 - 160 mg/dL [facility] LDL 171(H) 50 - 129 mg/dL [facility] Comment: LDL levels in terms of risk for coronary heart disease: <100 mg/dL: Optimal 100-129 mg/dL: Near or above optimal 130-159 mg/dL: Borderline high 160-189 mg/dL: High >190 mg/dL: Very High CARDIAC RISK RATIO 3.4 3.4 - 5.0 C [facility] Blood 01/02/2021 9:08 AM EDT 01/02/2021 9:12 AM EDT us Jordy Anderson MD LAB BLOOD BKR ORDERABLES Fin al Result [facility] [address] [place] [address] from Last 3 Months or Most Recently Relevant to Health Maintenance Care Teams Car Starter Relationship Specialty Start Date End Date Jordy Anderson MD [address] [place] [phone] [email or web address] PCP - General Internal Medicine 11/09/17 Additional Source Comments The information contained in this document represents components of the legal health record. It is not the complete legal health record.[facility]
--- OUTSIDE RECORDS SUMMARY | 2025-03-03 11:22 | XMS_ITS | Encounter Summary ---
Author Organization [facility] Address [address] [place] [address] Phone Care Team Providers Care Garage Mechanic Name Role Phone Pcp, Unknown Primary Care Provider UnavailJordy Laguna MD Primary Care Provider + [phone] Jordy Anderson MD Unavailable [phone] Encounter Details Date Type Department Care Team (Latest Contact Info) Description 11/06/2017 Transcribe Orders [facility] Phleb [address] [place] [address] Jordy Anderson MD [address] [place] [address] [email or web address] Acute idiopathic gout, unspecified site (Primary Dx) [...] ESR 26(H) 0 - 15 mm/h [facility] Blood 11/06/2017 3:25 PM EDT 11/06/2017 3:30 PM EDT us Jordy Anderson MD LAB BLOOD BKR ORDERABLES Fin al Result [address] [address] * Uric acid (11/06/2017 3:25 PM EDT) Pathologist [facility] URIC ACID 6.1 2.4 - 7.0 mg/dL [facility] Blood 11/06/2017 3:25 PM EDT 11/06/2017 3:30 PM EDT us Jordy Anderson MD LAB BLOOD BKR ORDERABLES Fin al Result Performing Organization Address [facility] [place] [facility] Co de Phone Number [address] [address] * (ABNORMAL) C-Reactive Protein (11/06/2017 3:25 PM EDT) Pathologist [facility] C REACTIVE PROTEIN 78.6(H) 0.0 - 4.0 mg/L [facility] Comment:New Reference Range and Measuring Units effective 08/19/17. Blood 11/06/2017 3:25 PM EDT 11/06/2017 3:30 PM EDT us Jordy Anderson MD LAB BLOOD BKR ORDERABLES Fin al Result Performing Organization Address [facility] Co de Phone Number [address] [address] * (ABNORMAL) CBC and differential (11/06/2017 3:25 PM EDT) Pathologist [facility] WBC 9.30 3.40 - 11.20 K/uL [facility] RBC 4.90 4.50 - 5.50 M/uL [facility] HGB 14.4 13.0 - 17.0 g/dL [facility] HCT 43.3 40.0 - 51.0 % [facility] PLT 232 130 - 400 K/uL [facility] MCV 88.4 79.0 - 98.0 fL [facility] MCH 29.4 27.0 - 34.8 pg [facility] MCHC 33.3 31.5 - 36.0 g/dL [facility] RDW 12.7 10.8 - 14.6 % [facility] MPV 12.0 9.4 - 12.4 fl [facility] NRBC 0.00 /100 WBCs [facility] ABSOLUTE NRBC 0.00 K/uL [facility] DIFF METHOD Auto [facility] NEUTS 72.7 45.30 - 77.70 % [facility] LYMPHS 16.0 12.30 - 39.70 % [facility] MONOS 10.3 4.10 - 12.80 % [facility] EOS 0.3 0 - 7.2 % [facility] BASOS 0.4 0 - 2.80 % [facility] Granulocytes, immature (%) 0.3 0.0 - 0.9 % [facility] ABSOLUTE NEUTS 6.75 1.40 - 7.70 K/uL [facility] ABSOLUTE LYMPHS 1.49 0.60 - 3.20 K/uL [facility] ABSOLUTE MONOS 0.96(H) 0.11 - 0.59 K/uL [facility] ABSOLUTE EOS 0.03 0.01 - 0.50 K/uL [facility] ABSOLUTE BASOS 0.04 0.00 - 0.08 K/uL [facility] Granulocytes, immature 0.03 0.00 - 0.05 K/uL [facility] Blood 11/06/2017 3:25 PM EDT 11/06/2017 3:30 PM EDT us Jordy Anderson MD LAB BLOOD BKR ORDERABLES Fin al Result [address] [address] documented in this encounter Visit Diagnoses Diagnosis Acute idiopathic gout, unspecified site- Primary documented in this encounter Care Teams Garage Mechanic Relationship Specialty Start Date End Date Pcp, Unknown PCP - General 10/01/17 11/08/17 Jordy Anderson MD [address] [place] [address] [email or web address] PCP - General Internal Medicine 11/09/17 Jordy Anderson MD [address] [address] [email or web address] Insurance Assigned Provider 08/10/19 10/11/22 documented as of this encounter Additional Source Comments The information contained in this document represents components of the legal health record. It is not the complete legal health record.[facility]
--- OUTSIDE RECORDS SUMMARY | 2025-03-03 11:22 | XMS_ITS | Encounter Summary ---
Author Organization [facility] Address [address] [address] Phone Care Team Providers Care Tare Worker Name Role Phone Jordy Anderson MD Primary Care Provider + [phone] Jordy Anderson MD Unavailable [phone] Encounter Details Date Type Department Care Team (Latest Contact Info) Description 12/25/2020 Transcribe Orders Virtual Department [address] [place] [phone] Jordy Anderson MD [address] [place] [phone] [email or web address] Scrotal mass (Primary Dx) Social History Tobacco [...] organs documented in this encounter Care Teams Tare Worker Relationship Specialty Start Date End Date Jordy Anderson MD [address] [address] [email or web address] PCP - General Internal Medicine 11/09/17 Jordy Anderson MD [address] [address] [email or web address] Insurance Assigned Provider 08/10/19 10/11/22 documented as of this encounter Additional Source Comments The information contained in this document represents components of the legal health record. It is not the complete legal health record.[facility]
--- OUTSIDE RECORDS SUMMARY | 2025-03-03 11:22 | XMS_ITS | Encounter Summary ---
Author Organization [facility] Address [address] [place] [address] Phone Care Team Providers Care Bag Filler Name Role Phone Jordy Anderson MD Primary Care Provider + [phone] Jordy Anderson MD Unavailable [phone] Encounter Details Date Type Department Care Team (Latest Contact Info) Description 05/04/2019 Transcribe Orders [address] [address] Jordy Anderson MD [address] [place] [address] [email or web address] Gout, unspecified cause, unspecified chronicity, unspecified site [...] URIC ACID 8.4(H) 2.4 - 7.0 mg/dL [facility] Blood 05/04/2019 9:47 AM EST 05/04/2019 10:26 AM EST us Jordy Anderson MD LAB BLOOD BKR ORDERABLES Fin al Result [facility] [address], [place] [id number] * CBC and differential (05/04/2019 9:47 AM EST) WBC 4.79 3.40 - 11.20 K/uL [facility] RBC 5.23 4.50 - 5.50 M/uL [facility] HGB 15.0 13.0 - 17.0 g/dL [facility] HCT 45.0 40.0 - 51.0 % [facility] PLT 277 130 - 400 K/uL [facility] MCV 86.0 79.0 - 98.0 fL [facility] MCH 28.7 27.0 - 34.8 pg [facility] MCHC 33.3 31.5 - 36.0 g/dL [facility] RDW 13.3 10.8 - 14.6 % [facility] MPV 11.2 9.4 - 12.4 fl [facility] NRBC 0.00 0.00 /100 WBCs [facility] ABSOLUTE NRBC 0.00 0.00 K/uL [facility] DIFF METHOD Auto [facility] NEUTS 51.0 45.30 - 77.70 % [facility] LYMPHS 34.0 12.30 - 39.70 % [facility] MONOS 12.3 4.10 - 12.80 % [facility] EOS 1.5 0 - 7.2 % [facility] BASOS 1.0 0 - 2.80 % [facility] Granulocytes, immature (%) 0.2 0.0 - 0.9 % [facility] ABSOLUTE NEUTS 2.44 1.40 - 7.70 K/uL [facility] ABSOLUTE LYMPHS 1.63 0.60 - 3.20 K/uL [facility] ABSOLUTE MONOS 0.59 0.11 - 0.59 K/uL [facility] ABSOLUTE EOS 0.07 0.01 - 0.50 K/uL [facility] ABSOLUTE BASOS 0.05 0.00 - 0.08 K/uL [facility] Granulocytes, immature 0.01 0.00 - 0.05 K/uL [facility] Blood 05/04/2019 9:47 AM EST 05/04/2019 10:26 AM EST us Jordy Anderson MD LAB BLOOD BKR ORDERABLES Fin al Result Performing Organization Address [facility] Co de Phone Number [address] [address] * (ABNORMAL) Lipid panel (05/04/2019 9:47 AM EST) HDL 99 mg/dL [facility] Comment: Interpretation <40 mg/dL: Low HDL cholesterol (major risk factor for CHD) Greater than or equal to 60 mg/dL: High HDL cholesterol ( negative risk factor for CHD) HDL - cholesterol is affected by a number of factors, e.g. smoking, excerise, hormones, sex and age. CHOLESTEROL 320(H) 0 - 240 mg/dL [facility] TRIGLYCERIDES 245(H) 30 - 160 mg/dL [facility] LDL 172(H) 50 - 129 mg/dL [facility] Comment: LDL levels in terms of risk for coronary heart disease: <100 mg/dL: Optimal 100-129 mg/dL: Near or above optimal 130-159 mg/dL: Borderline high 160-189 mg/dL: High >190 mg/dL: Very High CARDIAC RISK RATIO 3.2(L) 3.4 - 5.0 [facility] Blood 05/04/2019 9:47 AM EST 05/04/2019 10:26 AM EST us Jordy Anderson MD LAB BLOOD BKR ORDERABLES Fin al Result Performing Organization Address [facility] Co de Phone Number [address] [address] * (ABNORMAL) Comprehensive metabolic panel (05/04/2019 9:47 AM EST) SODIUM 139 133 - 146 mmol/L [facility] POTASSIUM 4.4 3.3 - 5.1 mmol/L [facility] CHLORIDE 98 96 - 108 mmol/L [facility] CO2 29 21 - 35 mmol/L [facility] BUN 13 6 - 19 mg/dL [facility] CREATININE 0.60 0.5 - 1.5 mg/dL [facility] GLUCOSE 106(H) 70 - 99 mg/dL [facility] ALBUMIN 4.1 3.9 - 4.8 g/dL [facility] TOTAL PROTEIN 7.7 6.5 - 8.0 g/dL [facility] CALCIUM 9.8 8.4 - 10.3 mg/dL [facility] ALKALINE PHOSPHATASE 101 39 - 117 U/L [facility] TOTAL BILIRUBIN 0.4 0.0 - 1.2 mg/dL [facility] AST 53(H) 0 - 37 U/L [facility] ALT 44(H) 0 - 40 U/L [facility] GLOBULIN 3.6 1 - 4.8 g/dL [facility] EGFR >120 >59 mL/min/1.7 3m2 [facility] Comment:If patient is black, multiply result by 1.159. Estimated glomerular filtration rate calculated using the CKD-EPI equation. ANION GAP 16 10 - 20 mmol/L [facility] Blood 05/04/2019 9:47 AM EST 05/04/2019 10:26 AM EST us Jordy Anderson MD LAB BLOOD BKR ORDERABLES Fin al Result [facility] [address] [place] [address] documented in this encounter Visit Diagnoses Diagnosis Gout, unspecified cause, unspecified chronicity, unspecified site- Primary documented in this encounter Care Teams Bag Filler Relationship Specialty Start Date End Date Jordy Anderson MD [address] [address] [email or web address] PCP - General Internal Medicine 11/09/17 Jordy Anderson MD [address] [address] [email or web address] Insurance Assigned Provider 08/10/19 10/11/22 documented as of this encounter Additional Source Comments The information contained in this document represents components of the legal health record. It is not the complete legal health record.[facility]
--- OUTSIDE RECORDS SUMMARY | 2025-03-03 11:22 | XMS_ITS | Encounter Summary ---
Author Organization [facility] Address [address] [facility] [address] [place] [address] Phone Care Team Providers Care Bee Robber Name Role Phone Jordy Anderson MD Primary Care Provider + [phone] Jordy Anderson MD Unavailable [phone] Encounter Details Date Type Department Care Team ([facility] st Contact Info) Description 11/09/2017 Transcribe Orders [facility] Specimen Processing [address] [place] [address] Jordy Anderson MD [address] [place] [id number] [email or web address] Pain (Primary Dx) Social History Tobacco [...] screen (11/09/2017 11:45 AM EDT) CONTACT INFORMATION [phone] ANDERSON [facility] TEST REQUESTED LYME AB SCREEN [facility] Comments (Chemistry) UNABLE TO ADD TEST TO AN EXISTING SPECIMEN [facility] 11/09/2017 11:4 5 AM EDT 11/09/2017 12:21 PM EDT us Jordy Anderson MD LAB BLOOD ORDERABLES Final R esult [facility] [address] [place] [address] documented in this encounter Visit Diagnoses Diagnosis Pain- Primary Generalized pain documented in this encounter Care Teams Bee Robber Relationship Specialty Start Date End Date Jordy Anderson MD [address] [address] [email or web address] PCP - General Internal Medicine 11/09/17 Jordy Anderson MD [address] [address] [email or web address] Insurance Assigned Provider 08/10/19 10/11/22 documented as of this encounter Additional Source Comments The information contained in this document represents components of the legal health record. It is not the complete legal health record.[facility]
--- OUTSIDE RECORDS SUMMARY | 2025-03-03 11:23 | XMS_ITS | Encounter Summary ---
Author Organization [facility] Address [address] [address] Phone Care Team Providers Care Customer Marketing Intern Name Role Phone Pcp, Unknown Primary Care Provider UnavailJordy Laguna MD Primary Care Provider + [phone] Jordy Anderson MD Unavailable [phone] Encounter Details Date Type Department Care Team (Latest Contact Info) Description 10/01/2017 Transcribe Orders [facility] Phleb [address] [address] Jordy Anderson MD [address] [place] [address] [email or web address] Hematuria, unspecified type (Primary Dx) Social History [...] (10/01/2017 10:41 AM EDT) COLOR Yellow Yellow [facility] CLARITY Clear [facility] GLUCOSE Negative Negative [facility] BILI Negative Negative [facility] KETONES Negative Negative [facility] SPECIFIC GRAVITY 1.020 1.005 - 1.030 [facility] BLOOD 3+(A) Negative [facility] PH 6.0 5.0 - 8.0 [facility] Protein-UA Trace(A) Negative [facility] NITRITE Negative Negative [facility] Leukocyte esterase, ur Negative Negative [facility] Urine (Urine) 10/01/2017 10: 41 AM EDT 10/01/2017 10:43 AM EDT us Jordy Anderson MD LAB URINE ORDERABLES Final R esult Performing Organization Address City/[facility]/ZIP Co de Phone Number [address] [address] * (ABNORMAL) Microalbumin/creatinine ratio, random urine (10/01/2017 10:41 AM EDT) URINE MICROALBUMIN 10.2(H) 0 - 2.3 mg/dL [facility] URINE CREATININE 278 mg/dL [facility] MICROALB/CRE RATIO 36.7(H) 0 - 20 mg/g Cre [facility] Urine (Urine) 10/01/2017 10: 41 AM EDT 10/01/2017 10:43 AM EDT us Jordy Anderson MD LAB URINE ORDERABLES Final R esult Performing Organization Address [facility]/ZIP Co de Phone Number [address] [address] * C-Reactive Protein (10/01/2017 10:19 AM EDT) C REACTIVE PROTEIN 1.4 0.0 - 4.0 mg/L [facility] Comment:New Reference Range and Measuring Units effective 08/19/17. Blood 10/01/2017 10:1 9 AM EDT 10/01/2017 10:27 AM EDT us Jordy Anderson MD LAB BLOOD BKR ORDERABLES Fin al Result Performing Organization Address City/[facility]/ZIP Co de Phone Number [address] [address] * CBC and differential (10/01/2017 10:19 AM EDT) WBC 4.19 3.40 - 11.20 K/uL [facility] RBC 5.05 4.50 - 5.50 M/uL [facility] HGB 14.6 13.0 - 17.0 g/dL [facility] HCT 43.6 40.0 - 51.0 % [facility] PLT 208 130 - 400 K/uL [facility] MCV 86.3 79.0 - 98.0 fL [facility] MCH 28.9 27.0 - 34.8 pg [facility] MCHC 33.5 31.5 - 36.0 g/dL [facility] RDW 14.1 10.8 - 14.6 % [facility] MPV 12.0 9.4 - 12.4 fl [facility] NRBC 0.00 /100 WBCs [facility] ABSOLUTE NRBC 0.00 K/uL [facility] DIFF METHOD Auto [facility] NEUTS 58.4 45.30 - 77.70 % [facility] LYMPHS 27.0 12.30 - 39.70 % [facility] MONOS 12.2 4.10 - 12.80 % [facility] EOS 1.2 0 - 7.2 % [facility] BASOS 1.0 0 - 2.80 % [facility] Granulocytes, immature (%) 0.2 0.0 - 0.9 % [facility] ABSOLUTE NEUTS 2.45 1.40 - 7.70 K/uL [facility] ABSOLUTE LYMPHS 1.13 0.60 - 3.20 K/uL [facility] ABSOLUTE MONOS 0.51 0.11 - 0.59 K/uL [facility] ABSOLUTE EOS 0.05 0.01 - 0.50 K/uL [facility] ABSOLUTE BASOS 0.04 0.00 - 0.08 K/uL [facility] Granulocytes, immature 0.01 0.00 - 0.05 K/uL [facility] Blood 10/01/2017 10:1 9 AM EDT 10/01/2017 10:27 AM EDT us Jordy Anderson MD LAB BLOOD BKR ORDERABLES Fin al Result [address] [address] * (ABNORMAL) Lipid panel (10/01/2017 10:19 AM EDT) HDL 105 mg/dL [facility] Comment: Interpretation: Risk Level Males Decreased >45 mg/dL Average 40-45 mg/dL Increased <40 mg/dL CHOLESTEROL 359(H) 0 - 240 mg/dL [facility] TRIGLYCERIDES 141 30 - 160 mg/dL [facility] LDL 226(H) 50 - 129 mg/dL [facility] Comment: LDL levels in terms of risk for coronary heart disease: <100 mg/dL: Optimal 100-129 mg/dL: Near or above optimal 130-159 mg/dL: Borderline high 160-189 mg/dL: High >190 mg/dL: Very High CARDIAC RISK RATIO 3.4 3.4 - 5.0 C [facility] Blood 10/01/2017 10:1 9 AM EDT 10/01/2017 10:27 AM EDT us Jordy Anderson MD LAB BLOOD BKR ORDERABLES Fin al Result [address] [address] * (ABNORMAL) Comprehensive metabolic panel (10/01/2017 10:19 AM EDT) Pathologist [facility] SODIUM 140 133 - 146 mmol/L [facility] POTASSIUM 3.7 3.3 - 5.1 mmol/L [facility] CHLORIDE 101 96 - 108 mmol/L [facility] CO2 29 21 - 35 mmol/L [facility] BUN 15 6 - 19 mg/dL [facility] CREATININE 0.70 0.5 - 1.5 mg/dL [facility] GLUCOSE 112(H) 70 - 99 mg/dL [facility] ALBUMIN 3.7(L) 3.9 - 4.8 g/dL [facility] TOTAL PROTEIN 6.8 6.5 - 8.0 g/dL [facility] CALCIUM 9.2 8.4 - 10.3 mg/dL [facility] ALKALINE PHOSPHATASE 85 39 - 117 U/L [facility] TOTAL BILIRUBIN 0.7 0.0 - 1.2 mg/dL [facility] AST 61(H) 0 - 37 U/L [facility] ALT 53(H) 0 - 40 U/L [facility] GLOBULIN 3.1 1 - 4.8 g/dL [facility] EGFR 115 >59 mL/min/1.7 3m2 [facility] Comment:If patient is black, multiply result by 1.159. Estimated glomerular filtration rate calculated using the CKD-EPI equation. ANION GAP 14 10 - 20 mmol/L [facility] Blood 10/01/2017 10:1 9 AM EDT 10/01/2017 10:27 AM EDT us Jordy Anderson MD LAB BLOOD BKR ORDERABLES Fin al Result [address] [address] documented in this encounter Visit Diagnoses Diagnosis Hematuria, unspecified type- Primary documented in this encounter Care Teams Customer Marketing Intern Relationship Specialty Start Date End Date Pcp, Unknown PCP - General 10/01/17 11/08/17 Jordy Anderson MD [address] [address] [email or web address] PCP - General Internal Medicine 11/09/17 Jordy Anderson MD [address] [address] [email or web address] Insurance Assigned Provider 08/10/19 10/11/22 documented as of this encounter Additional Source Comments The information contained in this document represents components of the legal health record. It is not the complete legal health record.[facility]
[2025-03-03 12:51] LABS: PSA,Total (Free>4and<10) 3.56 ng/mL (0.00-4.00)
== END 2025-03-03 11:21 | disposition home or self-care (01) ==
LOC: HO.LAB 11:20
PROVIDERS: Visit Provider Urology
DX: R97.20 Elevated prostate specific antigen [PSA] (principal); Z12.5 Encounter for screening for malignant neoplasm of prostate
CPT/HCPCS: 36415; 70030; 84153

== ENCOUNTER → 2025-03-03 11:30 | Outpatient (BNV) | payer BC, SELFPAY | PROVIDERS: Visit Provider Radiology Diagnostic Radiology | DX: Z03.89 Encounter for observation for other suspected diseases and conditions ruled out (principal) | CPT/HCPCS: 70030 ==

== ENCOUNTER 2025-03-08 08:37 | Outpatient (REF) | payer BC, SELFPAY ==
--- NOTE | ~2025-03-08 | MR_ITS ---
EXAMINATION: MR PROSTATE WITHOUT THEN WITH IV CONTRAST, MR EXAM UNLISTED HISTORY: R97.20 - Elevated prostate specific antigen [PSA] TECHNIQUE: 1.5T body coil survey of the pelvis was performed. Phase array coil imaging of the prostate was performed in multiplanar high resolution axial, coronal, sagittal fast spin echo T2 and axial T1 weighted imaging sequences. Axial diffusion imaging at intermediate and high field performed with ADC mapping. Next, 9 mL Gadavist was given by intravenous infusion, and dynamic axial imaging performed. 3-D reconstructions and post-processing were performed on an independent workstation by the radiologist for biopsy planning using image fusion. COMPARISON: There are no prior studies available for comparison. CLINICAL DATA: Most recent PSA: 3.56 ng/mL on 03/03/2025. PSA Density: 0.21 ng/mL squared Prostate Biopsy: None reported FINDINGS: Prostate size: 3.5 x 3.7 x 2.5 cm. Calculated prostate volume is 16.8 mL. Hemorrhage: None. Transitional Zone: No significant abnormality is seen involving the transitional zone. Peripheral Zone: The peripheral zone demonstrates diffusely decreased T2 signal intensity. A slightly more hypointense area is noted at the left base (series 7, image 14) with imaging characteristics as follows: Area of interest #1: Location: Left base (series 7, image 14) measuring up to 1.4 cm. DWI PI-RADS v2.1 score: 3 T2 PI-RADS v2.1 score: 3 DCE PI-RADS v2.1 score: - Overall PI-RADS v2.1 score: 3 Capsular contact: yes Extracapsular extension: None Seminal vesicle invasion: None Neurovascular bundle involvement: None Seminal Vesicles/Ejaculatory Ducts: Symmetric and normal in signal and caliber. Pelvic Lymph Nodes: No obturator or internal iliac lymph nodes meeting size criteria for adenopathy. Marrow Signal: Normal marrow signal and enhancement without focal lesion identified. MR/MR Prostate wo/w con IMPRESSION: Equivocal signal abnormality in the peripheral zone at the left base. If imaging guided biopsy is to be performed, sampling of this region is recommended. PI-RADS 3: Intermediate (the presence of clinically significant cancer is equivocal) PI-RADS Assessment Categories PI-RADS 1: Very low (clinically significant cancer is highly unlikely to be present) PI-RADS 2: Low (clinically significant cancer is unlikely to be present) PI-RADS 3: Intermediate (the presence of clinically significant cancer is equivocal) PI-RADS 4: High (clinically significant cancer is likely to be present) PI-RADS 5: Very high (clinically significant cancer is highly likely to be present) [employer]. MR Prostate Imaging Reporting and Data System version 2.1. [email or web address].org/Quality-Safety/Resources/PIRADS/ Electronically signed by: Bonifacio Robb MD 03/08/2025 10:19 AM WU
== END 2025-03-08 08:38 | disposition home or self-care (01) ==
LOC: HO.MRI 08:37
PROVIDERS: PCP Family Medicine; Visit Provider Urology
DX: R97.20 Elevated prostate specific antigen [PSA] (principal); N50.3 Cyst of epididymis; Z12.5 Encounter for screening for malignant neoplasm of prostate; N50.89 Other specified disorders of the male genital organs
CPT/HCPCS: 72197; 76377; A9585

== ENCOUNTER → 2025-03-08 08:44 | Outpatient (BNV) | payer BC, SELFPAY | PROVIDERS: PCP Family Medicine; Visit Provider Radiology Diagnostic Radiology | DX: R97.20 Elevated prostate specific antigen [PSA] (principal) | CPT/HCPCS: 72197; 76377 ==

== ENCOUNTER 2025-03-16 14:26 | Outpatient (AMB) | payer BC, SELFPAY ==
--- NOTE | 2025-03-16 14:26 | A.OFFVIS_ITS ---
Intake Visit Reasons: MRI F/U/ SET (NO UA) Intake Note: Patient is present for follow up Urology Medication:ALLOPURINOL Antibiotic Allergy:NONE Blood Thinner:NONE Labs done 03/03/25:Total PSA 3.56 Imaging: Prostate MRI 03/08/25 Debt And Budget Counselor Required: No Accompanied by: Self / Same As Patient Allergies No Known Allergies Allergy (Verified 11/10/24 09:14) HPI Comments Details: Carmelo is a pleasant male. He is a patient Dr. Wilburn. He is seen for the following urologic conditions - epididymal cyst - elevated PSA Follow-up for prostate MRI PSA has retreated Prostate MRI performed 20 mg prostate. PI-RADS 3 - 1.4 cm area identified Discussed result Risk balance Six-month follow-up repeat PSA Elevated PSA Remains elevated for under 55 Recommend three-month follow-up repeat PSA plus bladder ultrasound Seeing Nephrology regarding microscopic hematuria Renal ultrasound cysts right side no evident stones Referral for elevated PSA PSA - 10/26 3.4, 06/28 4.3, 11/28 4.3, 02/28 3.6 PFSH Medical History Spermatocele Hematuria History of snoring Long-term current use of high risk medication other than anticoagulant Idiopathic gout of multiple sites Bilateral knee pain Swelling of foot joint Swelling of joint, ankle, left Swelling of joint of left knee Kidney disease Shingles GERD (gastroesophageal reflux disease) Gout Surgical History Hx of esophagogastroduodenoscopy Hx of colonoscopy H/O arthroscopic knee surgery Family History Father Gout Maternal Grandfather Alcohol abuse Brother Kidney disease Social History Household Members: None Housing: House Alcohol intake: current Patient Tobacco Use Status: Former Tobacco user Cigarette Packs Per Day: 0.5 Years Smoked: 5 e-Cigarette/Vaping Use: Never Used Substance Use Type: Marijuana service: No Current occupational status: employed 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 Cognitive needs: No Hearing needs: No Vision needs: No Review of Systems Const Denies chills and Denies fever(s) Card Reports no additional complaints and Denies syncope Resp Denies cough GI Denies abdominal pain and Denies heartburn Reports as per HPI and Denies change in libido Neuro Denies syncope Psych Denies change in libido Endo Denies change in libido Physical Exam Const General: cooperative, healthy appearing, comfortable and no acute distress Orientation/consciousness: patient oriented x3 HEENT Face and sinus: Yes normal facial exam Mouth: moist mucous membranes Neck Neck: Yes normal visual inspection, Yes full ROM and Yes trachea midline Chest Chest palpation & inspection: normal inspection of the chest Resp Effort & Inspection: normal respiratory effort, able to speak in complete sentences and no respiratory distress GI Inspection: Yes normal to inspection Back/Spine/Pelvis Cervical Spine: normal cervical lordosis Thoracic/Lumbar Spine: thoracic and lumbar spine normal to inspection Skin General skin exam: no rashes or lesions noted Neuro General: patient oriented x3, gait normal, tone normal and moves all extremities Extrem General: Yes normal to inspection and Yes capillary refill normal Assessment & Plan Assessment & Plan (1) Elevated PSA: Code(s): R97.20 - Elevated prostate specific antigen [PSA] Category: Medical Plan Six-month follow-up PSA Orders: Orders Prostate Specific Antigen 6 Months R97.20 - Elevated prostate specific antigen [PSA] Patient Instructions: This note is constructed using voice recognition software. While every effort has been made to ensure accuracy environmental studies department chair errors may have been included. Imaging studies, laboratory and physical exam results were discussed and reviewed in detail. No major barriers to patient understanding were identified. An opportunity to ask questions regarding the treatment plan was provided. All questions were answered. The patient expressed understanding and agreement with the above treatment plan. The patient is aware they should contact our office by phone for worsening of their current condition or the appearance of new urologic symptoms. Compliance is encouraged with any medications and followup testing that is ordered. It is a privilege to participate in the urologic care of your patient. If you have any questions or concerns regarding treatment for the above conditions, or other urologic issues, please do not hesitate to contact me. The office telephone contact is [phone]. Sincerely, Dr Chaitayna Verdugo MD, [place] [facility] - Urology Compassionate Specialist Care for the Genitourinary System Coding Level of Care Code Est Pt Level 3 (41743) Diagnoses Elevated PSA R97.20
--- OUTSIDE RECORDS SUMMARY | 2025-03-16 22:07 | XMS_ITS | Encounter Summary ---
Author Organization [facility] Address [address] [address] Phone Care Team Providers Care Lubrication Servicer Name Role Phone Jordy Anderson MD Primary Care Provider + [phone] Jordy Anderson MD Unavailable [phone] Encounter Details Date Type Department Care Team (Latest Contact Info) Description 05/04/2019 Transcribe Orders [address] [address] Jordy Anderson MD [address] [place] [id number] [email or web address] Gout, unspecified cause, unspecified chronicity, unspecified site [...] URIC ACID 8.4(H) 2.4 - 7.0 mg/dL [facility] Blood 05/04/2019 9:47 AM EST 05/04/2019 10:26 AM EST us Jordy Anderson MD LAB BLOOD BKR ORDERABLES Fin al Result [facility] [address] [place], [place] [id number] * CBC and differential (05/04/2019 9:47 AM EST) WBC 4.79 3.40 - 11.20 K/uL [facility] RBC 5.23 4.50 - 5.50 M/uL [facility] HGB 15.0 13.0 - 17.0 g/dL [facility] HCT 45.0 40.0 - 51.0 % [facility] PLT 277 130 - 400 K/uL [facility] MCV 86.0 79.0 - 98.0 fL [facility] MCH 28.7 27.0 - 34.8 pg [facility] MCHC 33.3 31.5 - 36.0 g/dL [facility] RDW 13.3 10.8 - 14.6 % [facility] MPV 11.2 9.4 - 12.4 fl [facility] NRBC 0.00 0.00 /100 WBCs [facility] ABSOLUTE NRBC 0.00 0.00 K/uL [facility] DIFF METHOD Auto [facility] NEUTS 51.0 45.30 - 77.70 % [facility] LYMPHS 34.0 12.30 - 39.70 % [facility] MONOS 12.3 4.10 - 12.80 % [facility] EOS 1.5 0 - 7.2 % [facility] BASOS 1.0 0 - 2.80 % [facility] Granulocytes, immature (%) 0.2 0.0 - 0.9 % [facility] ABSOLUTE NEUTS 2.44 1.40 - 7.70 K/uL [facility] ABSOLUTE LYMPHS 1.63 0.60 - 3.20 K/uL [facility] ABSOLUTE MONOS 0.59 0.11 - 0.59 K/uL [facility] ABSOLUTE EOS 0.07 0.01 - 0.50 K/uL [facility] ABSOLUTE BASOS 0.05 0.00 - 0.08 K/uL [facility] Granulocytes, immature 0.01 0.00 - 0.05 K/uL [facility] Blood 05/04/2019 9:47 AM EST 05/04/2019 10:26 AM EST us Jordy Anderson MD LAB BLOOD BKR ORDERABLES Fin al Result Performing Organization Address [facility] Co de Phone Number [address] [address] * (ABNORMAL) Lipid panel (05/04/2019 9:47 AM EST) HDL 99 mg/dL [facility] Comment: Interpretation <40 mg/dL: Low HDL cholesterol (major risk factor for CHD) Greater than or equal to 60 mg/dL: High HDL cholesterol ( negative risk factor for CHD) HDL - cholesterol is affected by a number of factors, e.g. smoking, excerise, hormones, sex and age. CHOLESTEROL 320(H) 0 - 240 mg/dL [facility] TRIGLYCERIDES 245(H) 30 - 160 mg/dL [facility] LDL 172(H) 50 - 129 mg/dL [facility] Comment: LDL levels in terms of risk for coronary heart disease: <100 mg/dL: Optimal 100-129 mg/dL: Near or above optimal 130-159 mg/dL: Borderline high 160-189 mg/dL: High >190 mg/dL: Very High CARDIAC RISK RATIO 3.2(L) 3.4 - 5.0 C [facility] Blood 05/04/2019 9:47 AM EST 05/04/2019 10:26 AM EST us Jordy Anderson MD LAB BLOOD BKR ORDERABLES Fin al Result Performing Organization Address [facility] Co de Phone Number [address] [address] * (ABNORMAL) Comprehensive metabolic panel (05/04/2019 9:47 AM EST) SODIUM 139 133 - 146 mmol/L [facility] POTASSIUM 4.4 3.3 - 5.1 mmol/L [facility] CHLORIDE 98 96 - 108 mmol/L [facility] CO2 29 21 - 35 mmol/L [facility] BUN 13 6 - 19 mg/dL [facility] CREATININE 0.60 0.5 - 1.5 mg/dL [facility] GLUCOSE 106(H) 70 - 99 mg/dL [facility] ALBUMIN 4.1 3.9 - 4.8 g/dL [facility] TOTAL PROTEIN 7.7 6.5 - 8.0 g/dL [facility] CALCIUM 9.8 8.4 - 10.3 mg/dL [facility] ALKALINE PHOSPHATASE 101 39 - 117 U/L [facility] TOTAL BILIRUBIN 0.4 0.0 - 1.2 mg/dL [facility] AST 53(H) 0 - 37 U/L [facility] ALT 44(H) 0 - 40 U/L [facility] GLOBULIN 3.6 1 - 4.8 g/dL [facility] EGFR >120 >59 mL/min/1.7 3m2 [facility] Comment:If patient is black, multiply result by 1.159. Estimated glomerular filtration rate calculated using the CKD-EPI equation. ANION GAP 16 10 - 20 mmol/L [facility] Blood 05/04/2019 9:47 AM EST 05/04/2019 10:26 AM EST us Jordy Anderson MD LAB BLOOD BKR ORDERABLES Fin al Result [facility] [address] [place] [address] documented in this encounter Visit Diagnoses Diagnosis Gout, unspecified cause, unspecified chronicity, unspecified site- Primary documented in this encounter Care Teams Lubrication Servicer Relationship Specialty Start Date End Date Jordy Anderson MD [address] [address] [email or web address] PCP - General Internal Medicine 11/09/17 Jordy Anderson MD [address] [address] [email or web address] Insurance Assigned Provider 08/10/19 10/11/22 documented as of this encounter Additional Source Comments The information contained in this document represents components of the legal health record. It is not the complete legal health record.[facility]
--- OUTSIDE RECORDS SUMMARY | 2025-03-16 22:07 | XMS_ITS | Encounter Summary ---
Author Organization [facility] Address [address] [address] Phone Care Team Providers Care Sanitation Worker Hosing Machinery Name Role Phone Jordy Anderson MD Primary Care Provider + [phone] Jordy Anderson MD Unavailable [phone] Encounter Details Date Type Department Care Team ([facility] st Contact Info) Description 11/09/2017 Transcribe Orders [facility] Specimen Processing [address] [place] [address] Jordy Anderson MD [address] [place] [id number] [email or web address] Pain (Primary Dx) Social History Tobacco Use [...] screen (11/09/2017 11:45 AM EDT) CONTACT INFORMATION [phone] AND[address] [facility] TEST REQUESTED LYME AB SCREEN [facility] Comments (Chemistry) UNABLE TO ADD TEST TO AN EXISTING SPECIMEN [facility] 11/09/2017 11:4 5 AM EDT 11/09/2017 12:21 PM EDT us Jordy Anderson MD LAB BLOOD ORDERABLES Final R esult [facility] [address] [place] [address] documented in this encounter Visit Diagnoses Diagnosis Pain- Primary Generalized pain documented in this encounter Care Teams Sanitation Worker Hosing Machinery Relationship Specialty Start Date End Date Jordy Anderson MD [address] [address] [email or web address] PCP - General Internal Medicine 11/09/17 Jordy Anderson MD [address] [address] [email or web address] Insurance Assigned Provider 08/10/19 10/11/22 documented as of this encounter Additional Source Comments The information contained in this document represents components of the legal health record. It is not the complete legal health record.[facility]
--- OUTSIDE RECORDS SUMMARY | 2025-03-16 22:07 | XMS_ITS | Encounter Summary ---
Author Organization [facility] Address [address] [address] Phone Care Team Providers Care Distribution System Operator Name Role Phone Pcp, Unknown Primary Care Provider UnavailJordy Laguna MD Primary Care Provider + [phone] Jordy Anderson MD Unavailable [phone] Encounter Details Date Type Department Care Team (Latest Contact Info) Description 10/01/2017 Transcribe Orders [facility] Phleb [address] [address] Jordy Anderson MD [address] [place] [phone] [email or web address] Hematuria, unspecified type (Primary Dx) Social [...] (10/01/2017 10:41 AM EDT) COLOR Yellow Yellow [facility] CLARITY Clear [facility] GLUCOSE Negative Negative [facility] BILI Negative Negative [facility] KETONES Negative Negative [facility] SPECIFIC GRAVITY 1.020 1.005 - 1.030 [facility] BLOOD 3+(A) Negative [facility] PH 6.0 5.0 - 8.0 [facility] Protein-UA Trace(A) Negative [facility] NITRITE Negative Negative [facility] Leukocyte esterase, ur Negative Negative [facility] Urine (Urine) 10/01/2017 10: 41 AM EDT 10/01/2017 10:43 AM EDT us Jordy Anderson MD LAB URINE ORDERABLES Final R esult Performing Organization Address City/[facility]/ZIP Co de Phone Number [address] [address] * (ABNORMAL) Microalbumin/creatinine ratio, random urine (10/01/2017 10:41 AM EDT) URINE MICROALBUMIN 10.2(H) 0 - 2.3 mg/dL [facility] URINE CREATININE 278 mg/dL [facility] MICROALB/CRE RATIO 36.7(H) 0 - 20 mg/g Cre [facility] Urine (Urine) 10/01/2017 10: 41 AM EDT 10/01/2017 10:43 AM EDT us Jordy Anderson MD LAB URINE ORDERABLES Final R esult Performing Organization Address [facility]/ZIP Co de Phone Number [address] [address] * C-Reactive Protein (10/01/2017 10:19 AM EDT) C REACTIVE PROTEIN 1.4 0.0 - 4.0 mg/L [facility] Comment:New Reference Range and Measuring Units effective 08/19/17. Blood 10/01/2017 10:1 9 AM EDT 10/01/2017 10:27 AM EDT us Jordy Anderson MD LAB BLOOD BKR ORDERABLES Fin al Result Performing Organization Address City/[facility]/ZIP Co de Phone Number [address] [address] * CBC and differential (10/01/2017 10:19 AM EDT) WBC 4.19 3.40 - 11.20 K/uL [facility] RBC 5.05 4.50 - 5.50 M/uL [facility] HGB 14.6 13.0 - 17.0 g/dL [facility] HCT 43.6 40.0 - 51.0 % [facility] PLT 208 130 - 400 K/uL [facility] MCV 86.3 79.0 - 98.0 fL [facility] MCH 28.9 27.0 - 34.8 pg [facility] MCHC 33.5 31.5 - 36.0 g/dL [facility] RDW 14.1 10.8 - 14.6 % [facility] MPV 12.0 9.4 - 12.4 fl [facility] NRBC 0.00 /100 WBCs [facility] ABSOLUTE NRBC 0.00 K/uL [facility] DIFF METHOD Auto [facility] NEUTS 58.4 45.30 - 77.70 % [facility] LYMPHS 27.0 12.30 - 39.70 % [facility] MONOS 12.2 4.10 - 12.80 % [facility] EOS 1.2 0 - 7.2 % [facility] BASOS 1.0 0 - 2.80 % [facility] Granulocytes, immature (%) 0.2 0.0 - 0.9 % [facility] ABSOLUTE NEUTS 2.45 1.40 - 7.70 K/uL [facility] ABSOLUTE LYMPHS 1.13 0.60 - 3.20 K/uL [facility] ABSOLUTE MONOS 0.51 0.11 - 0.59 K/uL [facility] ABSOLUTE EOS 0.05 0.01 - 0.50 K/uL [facility] ABSOLUTE BASOS 0.04 0.00 - 0.08 K/uL [facility] Granulocytes, immature 0.01 0.00 - 0.05 K/uL [facility] Blood 10/01/2017 10:1 9 AM EDT 10/01/2017 10:27 AM EDT us Jordy Anderson MD LAB BLOOD BKR ORDERABLES Fin al Result [address] [address] * (ABNORMAL) Lipid panel (10/01/2017 10:19 AM EDT) HDL 105 mg/dL [facility] Comment: Interpretation: Risk Level Males Decreased >45 mg/dL Average 40-45 mg/dL Increased <40 mg/dL CHOLESTEROL 359(H) 0 - 240 mg/dL [facility] TRIGLYCERIDES 141 30 - 160 mg/dL [facility] LDL 226(H) 50 - 129 mg/dL [facility] Comment: LDL levels in terms of risk for coronary heart disease: <100 mg/dL: Optimal 100-129 mg/dL: Near or above optimal 130-159 mg/dL: Borderline high 160-189 mg/dL: High >190 mg/dL: Very High CARDIAC RISK RATIO 3.4 3.4 - 5.0 C [facility] Blood 10/01/2017 10:1 9 AM EDT 10/01/2017 10:27 AM EDT us Jordy Anderson MD LAB BLOOD BKR ORDERABLES Fin al Result [address] [address] * (ABNORMAL) Comprehensive metabolic panel (10/01/2017 10:19 AM EDT) Pathologist [facility] SODIUM 140 133 - 146 mmol/L [facility] POTASSIUM 3.7 3.3 - 5.1 mmol/L [facility] CHLORIDE 101 96 - 108 mmol/L [facility] CO2 29 21 - 35 mmol/L [facility] BUN 15 6 - 19 mg/dL [facility] CREATININE 0.70 0.5 - 1.5 mg/dL [facility] GLUCOSE 112(H) 70 - 99 mg/dL [facility] ALBUMIN 3.7(L) 3.9 - 4.8 g/dL [facility] TOTAL PROTEIN 6.8 6.5 - 8.0 g/dL [facility] CALCIUM 9.2 8.4 - 10.3 mg/dL [facility] ALKALINE PHOSPHATASE 85 39 - 117 U/L [facility] TOTAL BILIRUBIN 0.7 0.0 - 1.2 mg/dL [facility] AST 61(H) 0 - 37 U/L [facility] ALT 53(H) 0 - 40 U/L [facility] GLOBULIN 3.1 1 - 4.8 g/dL [facility] EGFR 115 >59 mL/min/1.7 3m2 [facility] Comment:If patient is black, multiply result by 1.159. Estimated glomerular filtration rate calculated using the CKD-EPI equation. ANION GAP 14 10 - 20 mmol/L [facility] Blood 10/01/2017 10:1 9 AM EDT 10/01/2017 10:27 AM EDT us Jordy Anderson MD LAB BLOOD BKR ORDERABLES Fin al Result [address] [address] documented in this encounter Visit Diagnoses Diagnosis Hematuria, unspecified type- Primary documented in this encounter Care Teams Distribution System Operator Relationship Specialty Start Date End Date Pcp, Unknown PCP - General 10/01/17 11/08/17 Jordy Anderson MD [address] [address] [email or web address] PCP - General Internal Medicine 11/09/17 Jordy Anderson MD [address] [address] [email or web address] Insurance Assigned Provider 08/10/19 10/11/22 documented as of this encounter Additional Source Comments The information contained in this document represents components of the legal health record. It is not the complete legal health record.[facility]
--- OUTSIDE RECORDS SUMMARY | 2025-03-16 22:07 | XMS_ITS | Clinical Summary ---
Author Organization [facility] Address [address] [facility] [address] [place] [phone] Phone Care Team Providers Care C Java Developer Name Role Phone Jordy Anderson MD Primary Care Provider + [phone] Allergies No known active allergies Medications No [...] (01/02/2021 9:08 AM EDT) HDL 95 mg/dL [facility] Comment: Interpretation <40 mg/dL: Low HDL cholesterol (major risk factor for CHD) Greater than or equal to 60 mg/dL: High HDL cholesterol ( negative risk factor for CHD) HDL - cholesterol is affected by a number of factors, e.g. smoking, excerise, hormones, sex and age. CHOLESTEROL 326(H) 0 - 240 mg/dL [facility] TRIGLYCERIDES 300(H) 30 - 160 mg/dL [facility] LDL 171(H) 50 - 129 mg/dL [facility] Comment: LDL levels in terms of risk for coronary heart disease: <100 mg/dL: Optimal 100-129 mg/dL: Near or above optimal 130-159 mg/dL: Borderline high 160-189 mg/dL: High >190 mg/dL: Very High CARDIAC RISK RATIO 3.4 3.4 - 5.0 C [facility] Blood 01/02/2021 9:08 AM EDT 01/02/2021 9:12 AM EDT us Jordy Anderson MD LAB BLOOD BKR ORDERABLES Fin al Result [facility] [address] [place] [address] from Last 3 Months or Most Recently Relevant to Health Maintenance Care Teams C Java Developer Relationship Specialty Start Date End Date Jordy Anderson MD [address] [place] [phone] [email or web address] PCP - General Internal Medicine 11/09/17 Additional Source Comments The information contained in this document represents components of the legal health record. It is not the complete legal health record.[facility]
--- OUTSIDE RECORDS SUMMARY | 2025-03-16 22:07 | XMS_ITS | Encounter Summary ---
Author Organization [facility] Address [address] [place] [phone] Phone Care Team Providers Care Rink Rat Name Role Phone Pcp, Unknown Primary Care Provider UnavailJordy Laguna MD Primary Care Provider + [phone] Jordy Anderson MD Unavailable [phone] Encounter Details Date Type Department Care Team (Latest Contact Info) Description 11/06/2017 Transcribe Orders [facility] Phleb [place] [place] [address] Jordy Anderson MD [address] [place] [phone] [email or web address] Acute idiopathic gout, unspecified site (Primary Dx) [...] EDT) ESR 26(H) 0 - 15 mm/h [facility] Blood 11/06/2017 3:25 PM EDT 11/06/2017 3:30 PM EDT us Jordy Anderson MD LAB BLOOD BKR ORDERABLES Fin al Result [address] [address] * Uric acid (11/06/2017 3:25 PM EDT) Pathologist [facility] URIC ACID 6.1 2.4 - 7.0 mg/dL [facility] Blood 11/06/2017 3:25 PM EDT 11/06/2017 3:30 PM EDT us Jordy Anderson MD LAB BLOOD BKR ORDERABLES Fin al Result Performing Organization Address [facility] Co de Phone Number [address] [address] * (ABNORMAL) C-Reactive Protein (11/06/2017 3:25 PM EDT) Pathologist [facility] C REACTIVE PROTEIN 78.6(H) 0.0 - 4.0 mg/L [facility] Comment:New Reference Range and Measuring Units effective 08/19/17. Blood 11/06/2017 3:25 PM EDT 11/06/2017 3:30 PM EDT us Jordy Anderson MD LAB BLOOD BKR ORDERABLES Fin al Result Performing Organization Address [facility] Co de Phone Number [address] [address] * (ABNORMAL) CBC and differential (11/06/2017 3:25 PM EDT) Pathologist [facility] WBC 9.30 3.40 - 11.20 K/uL [facility] RBC 4.90 4.50 - 5.50 M/uL [facility] HGB 14.4 13.0 - 17.0 g/dL [facility] HCT 43.3 40.0 - 51.0 % [facility] PLT 232 130 - 400 K/uL [facility] MCV 88.4 79.0 - 98.0 fL [facility] MCH 29.4 27.0 - 34.8 pg [facility] MCHC 33.3 31.5 - 36.0 g/dL [facility] RDW 12.7 10.8 - 14.6 % [facility] MPV 12.0 9.4 - 12.4 fl [facility] NRBC 0.00 /100 WBCs [facility] ABSOLUTE NRBC 0.00 K/uL [facility] DIFF METHOD Auto [facility] NEUTS 72.7 45.30 - 77.70 % [facility] LYMPHS 16.0 12.30 - 39.70 % [facility] MONOS 10.3 4.10 - 12.80 % [facility] EOS 0.3 0 - 7.2 % [facility] BASOS 0.4 0 - 2.80 % [facility] Granulocytes, immature (%) 0.3 0.0 - 0.9 % [facility] ABSOLUTE NEUTS 6.75 1.40 - 7.70 K/uL [facility] ABSOLUTE LYMPHS 1.49 0.60 - 3.20 K/uL [facility] ABSOLUTE MONOS 0.96(H) 0.11 - 0.59 K/uL [facility] ABSOLUTE EOS 0.03 0.01 - 0.50 K/uL [facility] ABSOLUTE BASOS 0.04 0.00 - 0.08 K/uL [facility] Granulocytes, immature 0.03 0.00 - 0.05 K/uL [facility] Blood 11/06/2017 3:25 PM EDT 11/06/2017 3:30 PM EDT us Jordy Anderson MD LAB BLOOD BKR ORDERABLES Fin al Result [address] [address] documented in this encounter Visit Diagnoses Diagnosis Acute idiopathic gout, unspecified site- Primary documented in this encounter Care Teams Rink Rat Relationship Specialty Start Date End Date Pcp, Unknown PCP - General 10/01/17 11/08/17 Jordy Anderson MD [address] [place] [address] [email or web address] PCP - General Internal Medicine 11/09/17 Jordy Anderson MD [address] [address] [email or web address] Insurance Assigned Provider 08/10/19 10/11/22 documented as of this encounter Additional Source Comments The information contained in this document represents components of the legal health record. It is not the complete legal health record.[facility]
--- OUTSIDE RECORDS SUMMARY | 2025-03-16 22:07 | XMS_ITS | Encounter Summary ---
Author Organization [facility] Address [address] [address] Phone Care Team Providers Care Primer Expeditor And Drier Name Role Phone Jordy Anderson MD Primary Care Provider + [phone] Jordy Anderson MD Unavailable [phone] Encounter Details Date Type Department Care Team (Latest Contact Info) Description 12/25/2020 Transcribe Orders Virtual Department [address] [place] [address] Jordy Anderson MD [address] [place] [address] [email or web address] Scrotal mass (Primary Dx) Social History Tobacco [...] organs documented in this encounter Care Teams Primer Expeditor And Drier Relationship Specialty Start Date End Date Jordy Anderson MD [address] [address] [email or web address] PCP - General Internal Medicine 11/09/17 Jordy Anderson MD [address] [address] [email or web address] Insurance Assigned Provider 08/10/19 10/11/22 documented as of this encounter Additional Source Comments The information contained in this document represents components of the legal health record. It is not the complete legal health record.[facility]
== END 2025-03-16 14:55 | disposition home or self-care (01) ==
LOC: HO.HUSH 14:27
PROVIDERS: PCP Family Medicine; Visit Provider Urology
DX: R97.20 Elevated prostate specific antigen [PSA] (principal)
CPT/HCPCS: 99213